=== PATIENT | male | born 1950 | race Caucasian/White ===

== ENCOUNTER 2021-05-16 01:29 | Day surgery (SDC) | payer MEDICARE, OTHER, SELFPAY ==
[2021-05-05 10:01] VITALS: BMI 35.9
--- NOTE | 2021-05-16 08:16 | WPDANESEPPF ---
Anes - Initial Pre Proc Eval Procedure: Operation Date: 05/16/21 11:00 Proposed Procedures p Colonoscopy - Stveenson Griffith MD Date/Time: 05/16/21 08:16 Surgeon: Stevenson Griffith MD Pre Op Diagnosis: ulcerative colitis K51.90 Patient Data Age: 70 Gender: M Height: 1.78 m Weight: 113.5 kg Allergies Allergy/AdvReac Type Severity Reaction Status Date / Time terazosin Allergy Severe Other Verified 05/16/21 10:44 prednisone AdvReac Severe Diarrhea Verified 05/16/21 10:44 Home Medications Medication Instructions Recorded Confirmed Type PreserVision AREDS-2 1 tab-cap PO DAILY 05/05/21 05/16/21 History cholecalciferol (vitamin D3) 125 mcg PO DAILY 05/05/21 05/16/21 History [Vitamin D3] clobetasol 1 applic TOPICAL DAILY PRN 05/05/21 05/16/21 History cyanocobalamin (vitamin B-12) 5,000 mcg PO 2XW 05/05/21 05/16/21 History [Vitamin B-12] ferrous sulfate [Slow Fe] 142 mg PO DAILY 05/05/21 05/16/21 History folic acid 1 mg PO DAILY 05/05/21 05/16/21 History losartan-hydrochlorothiazide 1 tablet PO DAILY 05/05/21 05/16/21 History rivaroxaban [Xarelto] 20 mg PO DAILY 05/05/21 05/16/21 History sulfasalazine 500 mg PO QID 05/05/21 05/16/21 History Patient hx anesthesia problems: none Family hx anesthesia problems: none PMFSH Past Medical History Medical History (Updated 05/16/21 @ 08:17 by Andrzej oH DO) Asbestosis Atrial fibrillation Hypertension Morbid obesity WILLIAM (obstructive sleep apnea) SOB (shortness of breath) Ulcerative colitis Surgical History Surgical History (Updated 05/16/21 @ 08:17 by Andrzej Ho DO) History of nephrectomy left - 7 Family History Family History Mother Macular degeneration Morbid obesity Sibling Cerebrovascular accident Morbid obesity Social History Social History Smoking packs per day: 1 Smoking cigarettes per day: 20.0 Years smoked: 35 Smoking pack-years: 35.00 Smoking status: Former smoker Tobacco type: cigarettes Smoking end date: 09/17/99 Alcohol intake: never Substance use: never Substance use type: does not use Living arrangements: with family Spiritual care concerns: No Anes - Eval Final PreProcedure Day of Procedure 05/16/21 08:16 Patient weight: obese Heart: regular rate and rhythm Lungs: clear to auscultation and normal air movement Airway: Mallampati scale class II Neurological: alert and oriented Last oral intake: >/= 8 hours ASA classification: III Emergent: no Anesthetic plan: proceed Anesthesia type and monitoring: general GIVS and standard monitoring Informed Consent: The patient's anesthetic plan and its attendant risks and benefits were discussed with the patient/family/POA. Questions were solicited and answers provided to the satisfaction of the patient/family/POA.
[2021-05-16 10:46] VITALS: BP 166/83; PULSE 69; RESP 20; TEMP 36.2; O2SAT 99; BMI 36.8
[2021-05-16] MEDS: LACTATED RINGERS 1,000 ML 150 ML IV CONT (10:57)
--- NOTE | 2021-05-16 11:24 | PM.HPGS ---
History of Present Illness History of Present Illness Consent: Risks, benefits, and alternatives have been discussed and questions answered. Patient agrees to proceed with procedure. Chief complaint: ulcerative colitis K51.90 Narrative: Alonzo Montana is a 70 year old male with UC diagnosed about 5-6 years ago, had last colonoscopy around that time with Dr Overton and using sulfasalazine qid, never on biologics and has not required hospitalization. About 4 weeks ago with rash, given medrol which did not help and actually caused more diarrhea. He also has blood in stools. Review of Systems Constitutional: Constitutional: Denies headache(s) and Denies weakness Eyes: Eyes: Denies blurry vision ENT: Reports Normal hearing present, Denies headache(s) and Denies neck pain Cardiovascular: Cardiovascular: Denies chest pain and Denies dyspnea Respiratory: Respiratory: Denies dyspnea Gastrointestinal: Gastrointestinal: Reports no additional gastrointestinal complaints Genitourinary: Genitourinary: Denies dysuria Musculoskeletal: Musculoskeletal: Denies neck pain Integumentary/Breasts: Skin/Breast: Denies dry skin Neurologic: Reports Normal hearing present, Denies headache(s) and Denies weakness Psychiatric: Psychiatric: Denies anxiety Endocrine: Endocrine: Denies change in body appearance Hematologic/Lymphatic: Hematologic/Lymphatic: Denies easy bleeding Allergic/Immunologic: Allergic/Immunologic: Denies urticaria PMFSH Past Medical History Medical History (Updated 05/16/21 @ 11:26 by Stevenson Griffith MD) Asbestosis Atrial fibrillation Blood in stool Hypertension Morbid obesity WILLIAM (obstructive sleep apnea) SOB (shortness of breath) Ulcerative colitis Surgical History Surgical History (Updated 05/16/21 @ 08:17 by Andrzej Ho DO) History of nephrectomy left - 7 Family History Family History Mother Macular degeneration Morbid obesity Sibling Cerebrovascular accident Morbid obesity Social History Social History Smoking packs per day: 1 Smoking cigarettes per day: 20.0 Years smoked: 35 Smoking pack-years: 35.00 Smoking status: Former smoker Tobacco type: cigarettes Smoking end date: 09/17/99 Alcohol intake: never Substance use: never Substance use type: does not use Living arrangements: with family Spiritual care concerns: No Meds Home Medications and Allergies Home Medications Medication Instructions Recorded Confirmed Type PreserVision AREDS-2 1 tab-cap PO DAILY 05/05/21 05/16/21 History cholecalciferol (vitamin D3) 125 mcg PO DAILY 05/05/21 05/16/21 History [Vitamin D3] clobetasol 1 applic TOPICAL DAILY PRN 05/05/21 05/16/21 History cyanocobalamin (vitamin B-12) 5,000 mcg PO 2XW 05/05/21 05/16/21 History [Vitamin B-12] ferrous sulfate [Slow Fe] 142 mg PO DAILY 05/05/21 05/16/21 History folic acid 1 mg PO DAILY 05/05/21 05/16/21 History losartan-hydrochlorothiazide 1 tablet PO DAILY 05/05/21 05/16/21 History rivaroxaban [Xarelto] 20 mg PO DAILY 05/05/21 05/16/21 History sulfasalazine 500 mg PO QID 05/05/21 05/16/21 History Allergies Allergy/AdvReac Type Severity Reaction Status Date / Time terazosin Allergy Severe Other Verified 05/16/21 10:44 prednisone AdvReac Severe Diarrhea Verified 05/16/21 10:44 Vital Signs Vital Signs - 24 hr 05/16/21 10:46 Temperature 97.2 F L Pulse Rate 69 Respiratory Rate 20 Blood Pressure 166/83 H Pulse Oximetry 99 Exam Const: General: comfortable and no acute distress HENMT: General nose exam: Normal nares present Eyes: General: appearance normal, both eyes and all related structures Neck: Neck: no JVD Resp: Auscultation: clear to auscultation bilaterally Cardio: Rate: regular rate Rhythm: regular rhythm GI: Inspection: non-distended GI Palp: Yes Soft to palpation
[2021-05-16 11:50] VITALS: BP 126/51; PULSE 71; RESP 20; O2SAT 99
[2021-05-16 12:00] VITALS: BP 137/61; PULSE 68; RESP 20; O2SAT 99
[2021-05-16 12:10] VITALS: BP 162/82; PULSE 70; RESP 20; O2SAT 99
== END 2021-05-16 12:47 | disposition home or self-care (01) ==
PROVIDERS: PCP Internal Medicine; Visit Provider Internal Medicine Gastroenterology
PROC: 0DJD8ZZ Inspection of Lower Intestinal Tract, Via Natural or Artificial Opening Endoscopic (ICD-10-PCS; CPT 45378; principal; 2021-05-16 11:00)
DX: K92.1 Melena (principal); K64.8 Other hemorrhoids; K63.5 Polyp of colon; K51.914 Ulcerative colitis, unspecified with abscess; I48.91 Unspecified atrial fibrillation; I10 Essential (primary) hypertension; G47.33 Obstructive sleep apnea (adult) (pediatric); Z87.891 Personal history of nicotine dependence; Z79.01 Long term (current) use of anticoagulants; E66.9 Obesity, unspecified; Z68.36 Body mass index [BMI] 36.0-36.9, adult
CPT/HCPCS: 45385; 45380; 88305; J2704; J7120

== ENCOUNTER 2021-05-18 07:31 | Outpatient (CLI) | payer MEDICARE, OTHER, SELFPAY ==
[2021-05-18 08:17] LABS: Hematocrit 30.6 % (42.0-52.0); Hemoglobin 10.1 g/dL (14.0-18.0); Mean Corpuscular Hemoglobin 32.6 pg (26-34); Mean Corpuscular Volume 98.7 fl (80-100); Mean Platelet Volume 8.7 fl (7.4-10.4); Platelet Count Result 251 k/mm3 (150-375); Red Cell Distribution Width 14.2 % (11.5-14.5); White Blood Count 8.3 K/mm3 (4.5-10.0)
[2021-05-18 08:28] LABS: Alanine Aminotransferase 14 U/L (4-50); Alkaline Phosphatase 57 U/L (38-126); Anion Gap 4 mmol/L (8-16); Aspartate Amino Transferase 19 U/L (17-59); Bilirubin,Total 0.5 mg/dL (0.2-1.3); Blood Urea Nitrogen 10 mg/dL (9-20); CRP 0.7 mg/dL (<1.0); Calcium 9.2 mg/dL (8.4-10.2); Carbon Dioxide 28 mmol/L (22-30); Chloride 105 mmol/L (98-107); Estimated Glomerular Filt Rate 54; Glucose 102 mg/dL (65-110); Potassium 3.7 mmol/L (3.4-5.0); Sodium 137 mmol/L (137-145)
[2021-05-18 09:05] LABS: HIV 1/2 Ab P24 Ag Result Negative (Negative)
[2021-05-18 11:11] LABS: Erythrocyte Sedimentation Rate 72 mm/hr (0-20)
[2021-05-22 14:23] LABS: NIL 0.08 IU/mL; Quantiferon TB Plus, 1T NEGATIVE (NEGATIVE); TB1-NIL 0.02 IU/mL; TB2-NIL 0.03 IU/mL
[2021-05-26 09:52] LABS: TPMT Activity 16
== END 2021-05-18 07:32 | disposition home or self-care (01) ==
LOC: ANHLAB 07:41
PROVIDERS: PCP Internal Medicine; Visit Provider Internal Medicine Gastroenterology
DX: K92.1 Melena (principal); K51.90 Ulcerative colitis, unspecified, without complications; Z11.4 Encounter for screening for human immunodeficiency virus [HIV]
CPT/HCPCS: 36415; 80053; 82657; 85027; 85652; 86140; 86480; 86703; G0432

== ENCOUNTER 2021-06-03 10:38 | Outpatient (CLI) | payer MEDICARE, OTHER, SELFPAY ==
[2021-06-08 03:37] LABS: Hepatitis Be Antibody Nonreactive
== END 2021-06-03 10:39 | disposition home or self-care (01) ==
LOC: ANHLAB 10:40
PROVIDERS: PCP Internal Medicine; Visit Provider Internal Medicine Gastroenterology
DX: Z11.59 Encounter for screening for other viral diseases (principal); K92.1 Melena; K51.90 Ulcerative colitis, unspecified, without complications; D50.9 Iron deficiency anemia, unspecified
CPT/HCPCS: 36415; 86707

== ENCOUNTER 2021-06-08 08:31 | Outpatient (CLI) | payer MEDICARE, OTHER, SELFPAY ==
[2021-06-08 10:15] LABS: Hepatitis B Surface Antigen Negative (Negative)
[2021-06-08 10:33] LABS: Hepatitis B Surface Anti Res Negative
== END 2021-06-08 08:32 | disposition home or self-care (01) ==
PROVIDERS: PCP Internal Medicine; Visit Provider Internal Medicine Gastroenterology
DX: Z11.59 Encounter for screening for other viral diseases (principal)
CPT/HCPCS: 36415; 86706; 87340

== ENCOUNTER 2021-08-04 08:42 | Outpatient (CLI) | payer MEDICARE, OTHER, SELFPAY ==
[2021-08-04 09:07] LABS: Hematocrit 32.3 % (42.0-52.0); Hemoglobin 10.7 g/dL (14.0-18.0); Mean Corpuscular HGB Conc 33.1 g/dl (32-36); Mean Corpuscular Volume 96.7 fl (80-100); Mean Platelet Volume 8.8 fl (7.4-10.4); Platelet Count Result 229 k/mm3 (150-375); Red Blood Count 3.34 M/mm3 (4.6-6.20); Red Cell Distribution Width 13.1 % (11.5-14.5); White Blood Count 6.1 K/mm3 (4.5-10.0)
[2021-08-04 09:22] LABS: Alanine Aminotransferase 14 U/L (4-50); Albumin Level 4.5 g/dL (3.5-5.1); Alkaline Phosphatase 64 U/L (38-126); Anion Gap 9 mmol/L (8-16); Aspartate Amino Transferase 20 U/L (17-59); Bilirubin,Total 0.4 mg/dL (0.2-1.3); Blood Urea Nitrogen 16 mg/dL (9-20); CRP < 0.5 mg/dL (<1.0); Carbon Dioxide 26 mmol/L (22-30); Chloride 102 mmol/L (98-107); Estimated Glomerular Filt Rate 60; Glucose 114 mg/dL (65-110); Potassium 3.9 mmol/L (3.4-5.0); Sodium 137 mmol/L (137-145)
[2021-08-04 14:09] LABS: Erythrocyte Sedimentation Rate 42 mm/hr (0-20)
== END 2021-08-04 08:43 | disposition home or self-care (01) ==
PROVIDERS: PCP Internal Medicine; Visit Provider Internal Medicine Gastroenterology
DX: K51.90 Ulcerative colitis, unspecified, without complications (principal); D50.9 Iron deficiency anemia, unspecified
CPT/HCPCS: 36415; 80053; 85027; 85652; 86140

== ENCOUNTER 2021-11-24 10:26 | Outpatient (CLI) | payer OTHER, SELFPAY ==
[2021-11-24 10:55] LABS: Hematocrit 39.3 % (42.0-52.0); Hemoglobin 13.1 g/dL (14.0-18.0); Mean Corpuscular HGB Conc 33.3 g/dl (32-36); Mean Corpuscular Hemoglobin 31.6 pg (26-34); Mean Corpuscular Volume 94.7 fl (80-100); Mean Platelet Volume 9.3 fl (7.4-10.4); Platelet Count Result 225 k/mm3 (150-375); Red Blood Count 4.15 M/mm3 (4.6-6.20); Red Cell Distribution Width 14.4 % (11.5-14.5); White Blood Count 7.5 K/mm3 (4.5-10.0)
[2021-11-24 11:03] LABS: Alanine Aminotransferase 14 U/L (4-50); Albumin Level 4.5 g/dL (3.5-5.1); Alkaline Phosphatase 60 U/L (38-126); Anion Gap 9 mmol/L (8-16); Aspartate Amino Transferase 21 U/L (17-59); Bilirubin,Total 0.7 mg/dL (0.2-1.3); Blood Urea Nitrogen 21 mg/dL (9-20); CRP < 0.5 mg/dL (<1.0); Calcium 10.5 mg/dL (8.4-10.2); Carbon Dioxide 29 mmol/L (22-30); Chloride 100 mmol/L (98-107); Estimated Glomerular Filt Rate 54; Glucose 112 mg/dL (65-110); Potassium 4.4 mmol/L (3.4-5.0); Sodium 138 mmol/L (137-145)
[2021-11-24 12:20] LABS: Erythrocyte Sedimentation Rate 35 mm/hr (0-20)
== END 2021-11-24 10:27 | disposition home or self-care (01) ==
LOC: ANHLAB 10:31
PROVIDERS: PCP Internal Medicine; Visit Provider Internal Medicine Gastroenterology
DX: K51.90 Ulcerative colitis, unspecified, without complications (principal); K92.1 Melena; K52.9 Noninfective gastroenteritis and colitis, unspecified
CPT/HCPCS: 36415; 80053; 85027; 85652; 86140

== ENCOUNTER 2022-01-12 16:34 | Outpatient (CLI) | payer OTHER, SELFPAY ==
[2022-01-12 16:51] LABS: Hematocrit 39.1 % (42.0-52.0); Hemoglobin 12.9 g/dL (14.0-18.0); Mean Corpuscular Hemoglobin 32.6 pg (26-34); Mean Corpuscular Volume 98.7 fl (80-100); Mean Platelet Volume 9.2 fl (7.4-10.4); Platelet Count Result 228 k/mm3 (150-375); Red Blood Count 3.96 M/mm3 (4.6-6.20); Red Cell Distribution Width 14.1 % (11.5-14.5); White Blood Count 8.7 K/mm3 (4.5-10.0)
[2022-01-12 17:04] LABS: Alanine Aminotransferase 16 U/L (4-50); Albumin Level 4.5 g/dL (3.5-5.1); Alkaline Phosphatase 70 U/L (38-126); Anion Gap 7 mmol/L (8-16); Aspartate Amino Transferase 20 U/L (17-59); Bilirubin,Total 0.6 mg/dL (0.2-1.3); Blood Urea Nitrogen 23 mg/dL (9-20); CRP < 0.5 mg/dL (<1.0); Calcium 9.2 mg/dL (8.4-10.2); Carbon Dioxide 26 mmol/L (22-30); Chloride 105 mmol/L (98-107); Estimated Glomerular Filt Rate 54; Glucose 123 mg/dL (65-110); Potassium 4.3 mmol/L (3.4-5.0); Sodium 138 mmol/L (137-145)
[2022-01-12 17:42] LABS: Erythrocyte Sedimentation Rate 8 mm/hr (0-20)
== END 2022-01-12 16:35 | disposition home or self-care (01) ==
PROVIDERS: PCP Internal Medicine; Visit Provider Internal Medicine Gastroenterology
DX: K51.90 Ulcerative colitis, unspecified, without complications (principal); D50.9 Iron deficiency anemia, unspecified
CPT/HCPCS: 36415; 80053; 85027; 85652; 86140

== ENCOUNTER 2022-04-12 08:11 | Outpatient (CLI) | payer OTHER, SELFPAY ==
[2022-04-12 09:09] LABS: Hematocrit 36.8 % (42.0-52.0); Hemoglobin 12.1 g/dL (14.0-18.0); Mean Corpuscular HGB Conc 32.9 g/dl (32-36); Mean Corpuscular Volume 97.4 fl (80-100); Mean Platelet Volume 9.2 fl (7.4-10.4); Platelet Count Result 218 k/mm3 (150-375); Red Blood Count 3.78 M/mm3 (4.6-6.20); Red Cell Distribution Width 13.5 % (11.5-14.5); White Blood Count 6.4 K/mm3 (4.5-10.0)
[2022-04-12 09:29] LABS: Alanine Aminotransferase 13 U/L (6-50); Albumin Level 4.3 g/dL (3.5-5.1); Alkaline Phosphatase 63 U/L (38-126); Anion Gap 10 mmol/L (8-16); Aspartate Amino Transferase 17 U/L (17-59); Bilirubin,Total 0.6 mg/dL (0.2-1.3); Blood Urea Nitrogen 21 mg/dL (9-20); CRP < 0.5 mg/dL (<1.0); Calcium 9.6 mg/dL (8.4-10.2); Carbon Dioxide 28 mmol/L (22-30); Chloride 101 mmol/L (98-107); Estimated Glomerular Filt Rate 50; Glucose 97 mg/dL (65-110); Sodium 139 mmol/L (137-145)
[2022-04-12 10:30] LABS: Erythrocyte Sedimentation Rate 23 mm/hr (0-20)
== END 2022-04-12 08:12 | disposition home or self-care (01) ==
LOC: ANHLAB 08:12
PROVIDERS: PCP Internal Medicine; Visit Provider Internal Medicine Gastroenterology
DX: K51.90 Ulcerative colitis, unspecified, without complications (principal)
CPT/HCPCS: 36415; 80053; 85027; 85652; 86140

== ENCOUNTER 2022-04-14 07:49 | Outpatient (CLI) | payer OTHER, SELFPAY ==
[2022-04-14 08:05] LABS: Basophils Absolute Auto 0.1 K/mm3 (0.0-0.1); Basophils Percent Auto 0.9 % (0.2-1.2); Eosinophils Absolute Auto 0.2 K/mm3 (0-0.3); Eosinophils Percent Auto 2.6 % (0-4.4); Hematocrit 37.8 % (42.0-52.0); Hemoglobin 12.4 g/dL (14.0-18.0); Immature Granulocyte Absolute 0.03 K/mm3 (0.00-0.031); Immature Granulocyte Percent A 0.4 % (0-0.5); Lymphocytes Absolute Auto 1.85 K/mm3 (0.9-3.2); Mean Corpuscular HGB Conc 32.8 g/dl (32-36); Mean Corpuscular Hemoglobin 31.8 pg (26-34); Mean Corpuscular Volume 96.9 fl (80-100); Mean Platelet Volume 8.8 fl (7.4-10.4); Monocytes Absolute Auto 0.6 K/mm3 (0.1-0.6); Monocytes Percent Auto 8.7 % (2.6-8.5); Neutrophils Absolute Auto 4.1 K/mm3 (1.3-6.7); Neutrophils Percent Auto 60.4 % (45.5-73.1); Platelet Count Result 211 k/mm3 (150-375); Red Cell Distribution Width 13.7 % (11.5-14.5); White Blood Count 6.9 K/mm3 (4.5-10.0)
[2022-04-14 08:26] LABS: Alanine Aminotransferase 14 U/L (6-50); Albumin Level 4.5 g/dL (3.5-5.1); Alkaline Phosphatase 64 U/L (38-126); Anion Gap 11 mmol/L (8-16); Aspartate Amino Transferase 18 U/L (17-59); Bilirubin,Total 0.5 mg/dL (0.2-1.3); Blood Urea Nitrogen 20 mg/dL (9-20); Calcium 9.2 mg/dL (8.4-10.2); Carbon Dioxide 26 mmol/L (22-30); Chloride 100 mmol/L (98-107); Cholesterol 170 mg/dL (0-200); Estimated Glomerular Filt Rate 50; Glucose 99 mg/dL (65-110); HDL Direct 35 mg/dL; Potassium 4.1 mmol/L (3.4-5.0); Sodium 137 mmol/L (137-145); Triglycerides 164 mg/dL (<150)
[2022-04-14 08:37] LABS: LDL Cholesterol Direct 85 mg/dL
[2022-04-14 08:54] LABS: Prostate Specific Antigen 1.1 ng/mL (< OR = 4.0)
== END 2022-04-14 07:50 | disposition home or self-care (01) ==
PROVIDERS: PCP Internal Medicine; Visit Provider Internal Medicine
DX: Z12.5 Encounter for screening for malignant neoplasm of prostate (principal); I10 Essential (primary) hypertension
CPT/HCPCS: 36415; 80053; 80061; 84153; 85025; G0103

== ENCOUNTER 2022-05-17 00:31 | Day surgery (SDC) | payer OTHER, SELFPAY ==
[2022-05-09 13:51] VITALS: BMI 38.7
--- NOTE | 2022-05-17 08:13 | WPDANESEPPF ---
Anes - Initial Pre Proc Eval Procedure: Operation Date: 05/17/22 10:45 Proposed Procedures p Colonoscopy - Stevenson Griffith MD Date/Time: 05/17/22 08:13 Surgeon: Stevenson Griffith MD Pre Op Diagnosis: ulcerative colitis Patient Data Age: 71 Gender: M Height: 1.78 m Weight: 122.5 kg Allergies Allergy/AdvReac Type Severity Reaction Status Date / Time terazosin Allergy Severe Other Verified 05/17/22 09:27 prednisone AdvReac Severe Diarrhea Verified 05/17/22 09:27 contrast media Allergy Severe Hives Uncoded 05/17/22 09:27 Home Medications Medication Instructions Recorded Confirmed Type PreserVision AREDS-2 1 tab-cap PO DAILY 05/05/21 05/09/22 History cholecalciferol (vitamin D3) 125 125 mcg PO DAILY 05/05/21 05/09/22 History mcg (5,000 unit) tablet (Vitamin D3) ferrous sulfate 142 mg (45 mg 142 mg PO DAILY 05/05/21 05/09/22 History iron) tablet,extended release (Slow Fe) losartan 100 1 tablet PO DAILY 05/05/21 05/09/22 History mg-hydrochlorothiazide 12.5 mg tablet rivaroxaban 20 mg tablet (Xarelto) 20 mg PO DAILY 05/05/21 05/09/22 History finasteride 5 mg tablet 5 mg PO DAILY 06/02/21 05/09/22 History azathioprine 50 mg tablet (Imuran) 50 mg PO DAILY #30 tabs 08/04/21 05/09/22 Rx adalimumab 40 mg/0.8 mL See Rx Instructions subcut 11/23/21 05/09/22 Rx subcutaneous syringe kit (Humira) .COMPLEX #2 ea adalimumab 80 mg/0.8 mL See Rx Instructions subcut 11/23/21 05/09/22 Rx subcutaneous pen kit (Humira(CF) .COMPLEX #3 ea Pen Crohn's-Ulc Colitis-Hid Sup Strt) Patient hx anesthesia problems: none Family hx anesthesia problems: none Results Review: All pre-operative results and documents have been reviewed as part of the pre-operative evaluation. [facility] Past Medical History Medical History Asbestosis Atrial fibrillation Blood in stool Hypertension Iron deficiency anemia Morbid obesity WILLIAM (obstructive sleep apnea) Rash SOB (shortness of breath) Ulcerative colitis Surgical History Surgical History History of nephrectomy left - 1957 Family History Family History Mother Macular degeneration Morbid obesity Sibling Cerebrovascular accident Morbid obesity Social History Social History Smoking packs per day: 1 Smoking cigarettes per day: 20.0 Years smoked: 35 Smoking pack-years: 35.00 Smoking status: Former smoker Tobacco type: cigarettes Smoking end date: 12/26/99 Alcohol intake: never Substance use: never Substance use type: does not use Living arrangements: with family Spiritual care concerns: No Anes - Eval Final PreProcedure Day of Procedure 05/17/22 08:13 Patient weight: obese Heart: regular rate and rhythm Lungs: clear to auscultation and normal air movement Airway: Mallampati scale class II Neurological: alert and oriented Last oral intake: >/= 8 hours ASA classification: III Emergent: no Anesthetic plan: proceed Anesthesia type and monitoring: general GIVS and standard monitoring Results Review: All pre-operative results and documents have been reviewed as part of the pre-operative evaluation. Informed Consent: The patient's anesthetic plan and its attendant risks and benefits were discussed with the patient/family/POA. Questions were solicited and answers provided to the satisfaction of the patient/family/POA.
[2022-05-17 09:15] VITALS: BMI 38.7
[2022-05-17] MEDS: LACTATED RINGERS 1,000 ML 150 ML IV CONT (09:44)
--- NOTE | 2022-05-17 10:09 | WPDHPUPDATE1 ---
History and Physical Update Update Date/Time: 05/17/22 10:09 History and Physical has been reviewed, including an updated exam of the patient. There are NO changes in the patient's condition. Risks, benefits, and alternatives have been discussed and questions answered. Patient agrees to proceed with procedure.
[2022-05-17 10:24] VITALS: BP 146/66; PULSE 59; RESP 23; O2SAT 97
[2022-05-17 10:34] VITALS: BP 153/75; PULSE 56; RESP 26; O2SAT 95
[2022-05-17 10:44] VITALS: BP 154/85; PULSE 60; RESP 21; O2SAT 95
== END 2022-05-17 11:09 | disposition home or self-care (01) ==
PROVIDERS: PCP Internal Medicine; Visit Provider Internal Medicine Gastroenterology
PROC: 0DJD8ZZ Inspection of Lower Intestinal Tract, Via Natural or Artificial Opening Endoscopic (ICD-10-PCS; CPT 45378; principal; 2022-05-17 10:45)
DX: K51.90 Ulcerative colitis, unspecified, without complications (principal); K57.30 Diverticulosis of large intestine without perforation or abscess without bleeding; K64.8 Other hemorrhoids; R19.7 Diarrhea, unspecified; R10.9 Unspecified abdominal pain; I48.91 Unspecified atrial fibrillation; D50.0 Iron deficiency anemia secondary to blood loss (chronic); G47.33 Obstructive sleep apnea (adult) (pediatric); R06.02 Shortness of breath; F17.210 Nicotine dependence, cigarettes, uncomplicated; Z79.01 Long term (current) use of anticoagulants; R21 Rash and other nonspecific skin eruption; E66.9 Obesity, unspecified; Z68.38 Body mass index [BMI] 38.0-38.9, adult
CPT/HCPCS: 45380; 45385; 88305; J2704; J7120

== ENCOUNTER 2022-10-18 08:03 | Outpatient (CLI) | payer OTHER, SELFPAY ==
[2022-10-18 12:10] LABS: Hematocrit 36.9 % (42.0-52.0); Hemoglobin 12.3 g/dL (14.0-18.0); Mean Corpuscular HGB Conc 33.3 g/dl (32-36); Mean Corpuscular Hemoglobin 32.6 pg (26-34); Mean Corpuscular Volume 97.9 fl (80-100); Mean Platelet Volume 9.8 fl (7.4-10.4); Platelet Count Result 219 k/mm3 (150-375); Red Blood Count 3.77 M/mm3 (4.6-6.20); Red Cell Distribution Width 13.6 % (11.5-14.5); White Blood Count 6.2 K/mm3 (4.5-10.0)
[2022-10-18 12:54] LABS: Erythrocyte Sedimentation Rate 31 mm/hr (0-20)
[2022-10-18 13:04] LABS: Alanine Aminotransferase 17 U/L (6-50); Albumin Level 4.2 g/dL (3.5-5.1); Alkaline Phosphatase 72 U/L (38-126); Anion Gap 4 mmol/L (8-16); Aspartate Amino Transferase 19 U/L (17-59); Bilirubin,Total 0.7 mg/dL (0.2-1.3); Blood Urea Nitrogen 17 mg/dL (9-20); CRP 0.9 mg/dL (<1.0); Calcium 9.1 mg/dL (8.4-10.2); Carbon Dioxide 29 mmol/L (22-30); Chloride 101 mmol/L (98-107); Cholesterol 156 mg/dL (0-200); Estimated Glomerular Filt Rate 50; Glucose 97 mg/dL (65-110); HDL Direct 31 mg/dL; Potassium 3.9 mmol/L (3.4-5.0); Sodium 134 mmol/L (137-145); Triglycerides 150 mg/dL (<150)
[2022-10-18 13:13] LABS: LDL Cholesterol Direct 84 mg/dL
[2022-10-18 14:15] LABS: Prostate Specific Antigen 2.1 ng/mL (< OR = 4.0)
== END 2022-10-18 08:04 | disposition home or self-care (01) ==
PROVIDERS: PCP Internal Medicine; Visit Provider Internal Medicine Gastroenterology
DX: R35.0 Frequency of micturition (principal); I10 Essential (primary) hypertension; Z12.5 Encounter for screening for malignant neoplasm of prostate
CPT/HCPCS: 36415; 80053; 80061; 84153; 85027; 85652; 86140; G0103

== ENCOUNTER 2023-04-30 08:57 | Outpatient (CLI) | payer OTHER, SELFPAY ==
[2023-04-30 09:55] LABS: Hematocrit 37.7 % (42.0-52.0); Hemoglobin 12.4 g/dL (14.0-18.0); Mean Corpuscular HGB Conc 32.9 g/dl (32-36); Mean Corpuscular Hemoglobin 31.9 pg (26-34); Mean Corpuscular Volume 96.9 fl (80-100); Platelet Count Result 216 k/mm3 (150-375); Red Blood Count 3.89 M/mm3 (4.6-6.20); Red Cell Distribution Width 13.3 % (11.5-14.5); White Blood Count 6.9 K/mm3 (4.5-10.0)
[2023-04-30 10:07] LABS: Alanine Aminotransferase 16 U/L (6-50); Albumin Level 4.4 g/dL (3.5-5.1); Alkaline Phosphatase 66 U/L (38-126); Anion Gap 8 mmol/L (8-16); Aspartate Amino Transferase 18 U/L (17-59); Bilirubin,Total 0.7 mg/dL (0.2-1.3); Blood Urea Nitrogen 20 mg/dL (9-20); CRP 0.9 mg/dL (<1.0); Calcium 9.5 mg/dL (8.4-10.2); Carbon Dioxide 28 mmol/L (22-30); Chloride 101 mmol/L (98-107); Estimated Glomerular Filt Rate 54; Glucose 95 mg/dL (65-110); Sodium 137 mmol/L (137-145)
[2023-04-30 10:32] LABS: Erythrocyte Sedimentation Rate 34 mm/hr (0-20)
[2023-04-30 10:49] LABS: Iron 95 ug/dL (49-181)
[2023-04-30 11:01] LABS: Percent Iron Saturation 30 % (20-50)
== END 2023-04-30 08:58 | disposition home or self-care (01) ==
PROVIDERS: Nurse Practitioner Family; PCP Internal Medicine; Visit Provider Internal Medicine Gastroenterology
DX: K51.90 Ulcerative colitis, unspecified, without complications (principal)
CPT/HCPCS: 36415; 80053; 82607; 82728; 82746; 83540; 83550; 85027; 85652; 86140

== ENCOUNTER 2023-05-25 01:54 | Day surgery (SDC) | payer OTHER, SELFPAY ==
[2023-05-14 11:20] VITALS: BMI 38.4
[2023-05-25 06:54] VITALS: BP 160/85; PULSE 60; RESP 18; TEMP 35.8; O2SAT 97
[2023-05-25] MEDS: LACTATED RINGERS 1,000 ML 150 ML IV CONT (07:04)
--- NOTE | 2023-05-25 07:36 | WPDANESEPPF ---
Anes - Initial Pre Proc Eval Procedure: Operation Date: 05/25/23 08:00 Proposed Procedures p Colonoscopy - Stevenson Griffith MD Date/Time: 05/25/23 07:36 Surgeon: Stevenson Griffith MD Pre Op Diagnosis: Ulcerative colitis Patient Data Age: 72 Gender: M Height: 1.75 m Weight: 117.5 kg Last Vital Signs Temp 96.4 F L 05/25/23 06:54 Pulse 60 05/25/23 06:54 Resp 18 05/25/23 06:54 BP 160/85 H 05/25/23 06:54 Pulse Ox 97 05/25/23 06:54 O2 Del Method Room Air 05/25/23 06:54 Allergies Allergy/AdvReac Type Severity Reaction Status Date / Time Iodinated Contrast Media Allergy Severe Hives Verified 05/25/23 06:51 terazosin Allergy Severe Other Verified 05/25/23 06:51 prednisone AdvReac Severe Diarrhea Verified 05/25/23 06:51 Home Medications Medication Instructions Recorded Confirmed Type PreserVision AREDS-2 1 tab-cap PO DAILY 05/05/21 05/25/23 History cholecalciferol (vitamin D3) 125 125 mcg PO 3XW 05/05/21 05/25/23 History mcg (5,000 unit) tablet (Vitamin D3) ferrous sulfate 142 mg (45 mg 142 mg PO DAILY 05/05/21 05/25/23 History iron) tablet,extended release (Slow Fe) losartan 100 1 tablet PO DAILY 05/05/21 05/25/23 History mg-hydrochlorothiazide 12.5 mg tablet rivaroxaban 20 mg tablet (Xarelto) 20 mg PO EVERY OTHER DAY 05/05/21 05/25/23 History adalimumab 40 mg/0.8 mL 40 mg (0.8 mL) subcut Q14D 3 09/21/22 05/25/23 Rx subcutaneous syringe kit (Humira) months #6 ea Lactobacillus 1 cap PO DAILY 05/15/23 05/25/23 History acidophilus-Bifidobac.animalis 2.5 billion cell capsule (Daily Probiotic) azathioprine 50 mg tablet 50 mg PO DAILY 05/15/23 05/25/23 History mecobalamin (vitamin B12) 5,000 5,000 mcg PO 2XW 05/15/23 05/25/23 History mcg chewable tablet triamcinolone acetonide 0.1 % 1 applic topical DAILY PRN Rash 05/15/23 05/25/23 History topical cream tumeric 100 mg-avery 150 mg-olive 2 cap PO DAILY 05/15/23 05/25/23 History 50 mg-oreg 150 mg-caprylate capsule Patient hx anesthesia problems: none Family hx anesthesia problems: none Results Review: All pre-operative results and documents have been reviewed as part of the pre-operative evaluation. [facility] Past Medical History Medical History Asbestosis Atrial fibrillation Blood in stool Hypertension Iron deficiency anemia Morbid obesity WILLIAM (obstructive sleep apnea) Rash SOB (shortness of breath) Ulcerative colitis Surgical History Surgical History History of nephrectomy left - 7 Family History Family History Mother Macular degeneration Morbid obesity Sibling Cerebrovascular accident Morbid obesity Social History Social History Smoking packs per day: 1 Smoking cigarettes per day: 20.0 Years smoked: 35 Smoking pack-years: 35.00 Smoking status: Former smoker Tobacco type: cigarettes Smoking end date: 12/26/99 Alcohol intake: never Substance use: never Substance use type: does not use Living arrangements: with family Spiritual care concerns: No Anes - Eval Final PreProcedure Day of Procedure 05/25/23 07:36 Patient weight: obese Heart: irregular rhythm Lungs: clear to auscultation Airway: Mallampati scale class III Neurological: alert and oriented Last oral intake: >/= 8 hours ASA classification: III Emergent: no Anesthetic plan: proceed Anesthesia type and monitoring: general GIVS and standard monitoring Results Review: All pre-operative results and documents have been reviewed as part of the pre-operative evaluation. Informed Consent: The patient's anesthetic plan and its attendant risks and benefits were discussed with the patient/family/POA. Questions were solicited and answers
--- NOTE | 2023-05-25 07:59 | WPDHPUPDATE1 ---
History and Physical Update Update Date/Time: 05/25/23 07:59 History and Physical has been reviewed, including an updated exam of the patient. There are NO changes in the patient's condition. Risks, benefits, and alternatives have been discussed and questions answered. Patient agrees to proceed with procedure.
[2023-05-25 08:20] VITALS: BP 137/77; PULSE 57; RESP 22; O2SAT 93
[2023-05-25 08:30] VITALS: BP 143/84; PULSE 57; RESP 19; O2SAT 93
[2023-05-25 08:40] VITALS: BP 155/89; PULSE 54; RESP 18; O2SAT 94
== END 2023-05-25 08:49 | disposition home or self-care (01) ==
PROVIDERS: PCP Internal Medicine; Visit Provider Internal Medicine Gastroenterology
PROC: 0DJD8ZZ Inspection of Lower Intestinal Tract, Via Natural or Artificial Opening Endoscopic (ICD-10-PCS; CPT 45378; principal; 2023-05-25 08:00)
DX: K51.90 Ulcerative colitis, unspecified, without complications (principal); D12.0 Benign neoplasm of cecum; K57.30 Diverticulosis of large intestine without perforation or abscess without bleeding; K64.8 Other hemorrhoids; I48.91 Unspecified atrial fibrillation; I10 Essential (primary) hypertension; D50.9 Iron deficiency anemia, unspecified; G47.33 Obstructive sleep apnea (adult) (pediatric); E66.9 Obesity, unspecified; Z68.38 Body mass index [BMI] 38.0-38.9, adult; Z90.5 Acquired absence of kidney; Z87.891 Personal history of nicotine dependence; Z79.01 Long term (current) use of anticoagulants; Z79.620 Long term (current) use of immunosuppressive biologic
CPT/HCPCS: 45385; 45380; 88305; J2704; J7120

== ENCOUNTER 2024-12-04 11:51 | Outpatient (CLI) | payer MEDICARE, SELFPAY ==
[2024-12-04 12:16] LABS: Hematocrit 35.8 % (42.0-52.0); Hemoglobin 11.9 g/dL (14.0-18.0); Mean Corpuscular HGB Conc 33.2 g/dl (32-36); Mean Corpuscular Volume 96.2 fl (80-100); Mean Platelet Volume 8.7 fl (7.4-10.4); Platelet Count Result 235 k/mm3 (150-375); Red Blood Count 3.72 M/mm3 (4.6-6.20); White Blood Count 6.1 K/mm3 (4.5-10.0)
--- OUTSIDE RECORDS SUMMARY | 2024-12-04 12:39 | XMS_ITS | Encounter Summary ---
Author Organization [facility] Healthcare Address [address] [place] [address] Care Team Providers Care Scrap Sawyer Name Role Phone Wilner Bolaños MD Primary Care Provider Sangeetha Parra PTA Unavailable Unavailable Felicia Sales ARMATURE AND ROTOR WINDER Unavailable [phone] Reason for Visit * Reason Onset Date Comments Referral Request 12/03/2024 Encounter Details Date Type Department Care Team (Late st Contact Info) Description 12/03/2024 Telephone [facility] Primary Care at [address] [place] [address] Wilner Bolaños MD [address] [place] [address] Referral Request Social History Tobacco Use Types Packs/Day Years Used Date Smoking Tobacco: Former Cigarettes Q uit: 09/17/1999 Smokeless Tobacco: Never Alcohol Use Standard Drinks/Week Comments No 0 (1 standard drink = 0.6 oz pur e alcohol) AUDIT-C Answer Date Recorded Q1: How often do you have a drink containing alcohol? Never 10/29/2023 Q2: How many drinks containi ng alcohol do you have on a typical day when you are drinking? Patient does not drink Q3: How often do you have si x or more drinks on one occasion? 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 Yes Additional Comments: please make outreach to patient via phone or my chart message when referral isplaced. Does message need to be routed? Yes-Action Needed documented in this encounter Plan of Treatment Not on file documented as of this encounter Visit Diagnoses Not on filedocumented in this encounter Care Teams Scrap Sawyer Relationship Specialty Start Date End Date Wilner Bolaños MD PCP - General 12/15/16 Sangeetha Parra, POWERHOUSE OILER Salesperson Meats Physical Therapy 06/03/18 Felicia Sales NP Nurse Practitioner Nurse Practitioner 03/03/19 documented as of this encounter
--- OUTSIDE RECORDS SUMMARY | 2024-12-04 12:39 | XMS_ITS | Encounter Summary ---
Author Organization [facility] Address [address] [place] [address] Care Team Providers Care Fha Underwriter Name Role Phone David Steel MD Primary Care Provider [phone] Encounter Details Date Type Department Care Team (Late st Contact Info) Description 11/13/2000 Outpatient Historical [facility] Primary Care - [address] [place] [address] David Steel MD [address] [address] Social History Tobacco Use Types Packs/Day Years Used Date Smoking Tobacco: Never Assessed Sex and Gender Information Value Date Recorded Sex Assigned at Not on file 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
--- OUTSIDE RECORDS SUMMARY | 2024-12-04 12:39 | XMS_ITS | Encounter Summary ---
Author Organization [facility] Address [address] [place] [address] Care Team Providers Care Electronic Technologist Name Role Phone David Steel MD Primary Care Provider [phone] Encounter Details Date Type Department Care Team (Latest Contact Info) Description 11/19/2000 Inpatient Historical [facility] Lorelei Ruiz William F, MD [address] [facility] [address] [place] [address] Other and unspecified noninfectious gastroenteritis and colitis(558.9) (Primary Dx) Social History Tobacco Use Types Packs/Day Years Used Date Smoking Tobacco: Never Assessed Sex and Gender Information Value Date Recorded Sex Assigned at Not on file 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
--- OUTSIDE RECORDS SUMMARY | 2024-12-04 12:39 | XMS_ITS | Encounter Summary ---
Author Organization [facility] Address [address] [place] [address] Care Team Providers Care Drop Hammer Operator Helper Name Role Phone David Steel MD Primary Care Provider [phone] Encounter Details Date Type Department Care Team (Late st Contact Info) Description 11/25/2003 Outpatient Historical [facility] Richar Greenberg MD [address] [facility] [address] [place] [address] HYPERTRPH NASAL TURBINAT (Primary Dx) Social History Tobacco Use Types Packs/Day Years Used Date Smoking Tobacco: Never Assessed Sex and Gender Information Value Date Recorded Sex Assigned at Not on file Legal Sex Male 3:47 AM NPS Gender Identity Not on file Sexual Orientation Not on file documented as of this encounter Plan of Treatment Not on file documented as of this encounter Visit Diagnoses Diagnosis Hypertrophy of nasal turbinates- Primary documented in this encounter Care Teams Drop Hammer Operator Helper Relationship Specialty Start Date End Date David Steel MD [address] [facility] [address] [id number] PCP - General 11/19/00 documented as of this encounter
--- OUTSIDE RECORDS SUMMARY | 2024-12-04 12:39 | XMS_ITS | Encounter Summary ---
Author Organization [facility] Address 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
--- OUTSIDE RECORDS SUMMARY | 2024-12-04 12:39 | XMS_ITS | Encounter Summary ---
Author Organization [facility] Address [address] [place] [address] Phone Care Team Providers Care Cutter Down Name Role Phone Wilner Bolaños MD Primary Care Provider Sangeetha Parra PTA Unavailable Unavailable Felicia Sales TANK REFINISHER Unavailable [phone] Stacey Christie RN Unavailable [phone] Reba Rosas RN Unavailable [phone] Encounter Details Date Type Department Care Team (Late st Contact Info) Description 11/23/2017 Orders Only [facility] ProviderJian MD [address] [place] [address] Social History Tobacco Use Types Packs/Day Years Used Date Smoking Tobacco: Former Smokeless Tobacco: Never Alcohol Use Standard Drinks/Week Comments No 0 (1 standard drink = 0.6 oz pur e alcohol) Sex and Gender Information Value Date Recorded Sex Assigned at Not on file Legal Sex Male 6:05 PM RAPID TRANSIT OPERATOR Gender Identity Not on file Sexual Orientation Not on file documented as of this encounter Plan of Treatment Not on file documented as of this encounter Procedures Procedure Name Priority Date/Time Associated Diagnosis Comments DISCHARGE LABORATORY CUMULATIVE REPORT 11/23/2017 12:00 AM RAPID TRANSIT OPERATOR documented in this encounter Results * DISCHARGE LABORATORY CUMULATIVE REPORT (11/23/2017 12:00 AM RAPID TRANSIT OPERATOR) Narrative 11/23/2017 12:00 AM RAPID TRANSIT OPERATOR Ordered by an unspecified provider. us Historical Provider LAB BLOOD ORDERABLES Radha l Result documented in this encounter Visit Diagnoses Not on filedocumented in this encounter Care Teams Cutter Down Relationship Specialty Start Date End Date Wilner Bolaños MD PCP - General 12/15/16 Sangeetha Parra, COMBAT SYSTEMS OPERATOR Congressional Representative Physical Therapy 06/03/18 Felicia Sales, TIFFANY Nurse Practitioner Nurse Practitioner 03/03/19 Stacey Christie, SACHIN [address] [place] [address] Avp 03/05/19 04/15/19 Reba Rosas RN [address] [address] Avp 02/26/20 04/19/20 documented as of this encounter
--- OUTSIDE RECORDS SUMMARY | 2024-12-04 12:39 | XMS_ITS | Encounter Summary ---
Author Organization [facility] Address [address] [place] [address] Care Team Providers Care Water Reuse Program Manager Name Role Phone David Steel MD Primary Care Provider [phone] Encounter Details Date Type Department Care Team (Late st Contact Info) Description 01/24/1999 Outpatient Historical [facility] Primary Care - [address] [place] [address] David Steel MD [address] [facility] [address] [place] [id number] Social History Tobacco Use Types Packs/Day Years Used Date Smoking Tobacco: Never Assessed Sex and Gender Information Value Date Recorded Sex Assigned at Not on file 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
--- OUTSIDE RECORDS SUMMARY | 2024-12-04 12:39 | XMS_ITS | Encounter Summary ---
Author Organization [facility] Address [address] [place] [address] Phone Care Team Providers Care Ground Wirer Name Role Phone Wilner Bolaños MD Primary Care Provider Sangeetha Parra PTA Unavailable Unavailable Felicia Sales FOOD SERVICE DRIVER Unavailable [phone] Stacey Christie RN Unavailable [phone] Reba Rosas RN Unavailable Encounter Details Date Type Department Care Team (Late st Contact Info) Description 01/03/2018 Orders Only [facility] ProviderJian MD [address] [place] [id number] Social History Tobacco Use Types Packs/Day Years Used Date Smoking Tobacco: Former Smokeless Tobacco: Never Alcohol Use Standard Drinks/Week Comments No 0 (1 standard drink = 0.6 oz pur e alcohol) Sex and Gender Information Value Date Recorded Sex Assigned at Not on file 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 us Historical Provider LAB BLOOD ORDERABLES Radha l Result documented in this encounter Visit Diagnoses Not on filedocumented in this encounter Care Teams Ground Wirer Relationship Specialty Start Date End Date Wilner Bolaños MD PCP - General 12/15/16 Sangeetha Parra, SALES AND PRODUCTION MANAGER Land Surveying Survey Worker Physical Therapy 06/03/18 Felicia Sales, [place] Nurse Practitioner Nurse Practitioner 03/03/19 Stacey Christie RN [address] [place] [address] Health Information Management Director 03/05/19 04/15/19 Reba Rosas RN [address] [place] [address] Health Information Management Director 02/26/20 04/19/20 documented as of this encounter
--- OUTSIDE RECORDS SUMMARY | 2024-12-04 12:39 | XMS_ITS | Referral Summary ---
Author Organization [facility] Address [address] [place] [id number] Care Team Providers Care Disc Pad Plate Filler Name Role Phone Wilner Bolaños MD Primary Care Provider Sangeetha Parra PTA Unavailable Unavailable Felicia Sales FUEL OIL CLERK Unavailable [phone] Encounters Date Type Department Care Team Description 12/03/[address] [facility] Primary Care at [address] [phone] Wilner Bolaños MD Referral Request 11/13/2024 10:30 AM EXHIBITION SPECIALIST Office Visit [facility] Primary Care at [address] [phone] Wilner Bolaños MD Essential hypertension (Primary Dx); BMI 36.0-36.9,adult; Benign prostatic hyperplasia with urinary retention; CKD stage G3a/A1, GFR 45-59 and albumin creatinine ratio <30 mg/g (HCC); Gastroesophageal reflux disease without esophagitis; H/O unilateral nephrectomy; Arthritis of left knee; Severe obstructive sleep apnea; Ulcerative pancolitis without complication (HCC); Paroxysmal atrial fibrillation (HCC); Severe obesity (HCC); Urine frequency; Mixed hyperlipidemia 11/10/[address] [facility] Primary Care at [address] [phone] Wilner Bolaños MD Skin lesion (Primary Dx) 10/28/2024 9:11 AM EXHIBITION SPECIALIST - 10/28/2024 11:59 PM EXHIBITION SPECIALIST Hospital Encounter [address] [address] CKD stage G3a/A1, GFR 45-59 and albumin creatinine ratio <30 mg/g (HCC); Essential hypertension Discharge Disposition: Discharge to home or self care 10/28/2024 9:15 AM EXHIBITION SPECIALIST Lab [facility] Outpatient Lab at [address] [phone] Essential hypertension (Primary Dx) 10/21/[address] [facility] Primary Care at [address] [phone] Wilner Bolaños MD Referral Request 10/07/[address] [facility] Primary Care at [address] [phone] Wilner Bolaños MD Referral Request 10/01/2024 8:40 AM EXHIBITION SPECIALIST - 10/01/2024 11:59 PM EXHIBITION SPECIALIST Hospital Encounter [address] [address] Retail Cashier Associate's nodule Discharge Disposition: Discharge to home or self care 10/01/2024 8:15 AM EXHIBITION SPECIALIST Lab [facility] Outpatient Lab at [address] [phone] Retail Cashier Associate's nodule (Primary Dx); Essential hypertension 09/30/[address] [facility] Accountable Care Organization [address] [place] [id number] Pushpa Kimball MA 09/26/[address] [facility] Primary Care at [address] [phone] Wilner Bolaños MD Medical Question/Miscellaneous 09/26/[address] [facility] Primary Care at [address] [phone] Wilner Bolaños MD 09/15/[address] [facility] Primary Care at [address] [phone] Wilner Bolaños MD 09/12/[address] [facility] Primary Care at [address] [place] [phone] Sheridan Smith MA 09/12/2024 Orders Only [facility] Primary Care at [address] [phone] Sheridan Smith MA 09/12/2024 Orders Only [facility] Primary Care at [address] [phone] Wilner Bolaños MD 09/09/2024 Orders Only [facility] Primary Care at [address] [phone] Wilner Bolaños MD from Last 3 Months Allergies Active Allergy Reactions Criticality Noted Date Comments Fexofenadine-Pseudoep hedrine Other (See comments) Medium 03/07/2024 Pt states it locks up my bladder and I'm unable to urinate Iodinated Contrast Media Hives Medium 01/13/2022 Tamsulosin Other (See comments) Low 09/12/2024 C/o decreased sex drive Prednisone Diarrhea,Anxiety Low 08/21/2017 Terazosin Palpitations Low 11/23/2017 Tachycardia Medications cholecalcifero l (VITAMIN D-3) 5,000 unit capsule Take 1 capsule (5,000 Units total) by mouth daily Active vitamins A,C,E-zinc-pipe fitter soft copper per 7,160-113-100 krlf-dy-rkks tablet,delayed release (DR/EC) Take by mouth daily Active Lactobac. rhamnosus GG-inulin 10 billion cell -200 mg tablet,chewabl e Take 70 billion CFU by mouth 2 (two) times a day Active cyanocobalamin , vitamin B-12, 1,000 mcg tablet extended release Take 5,000 mcg by mouth once a week Twice a week Active acidophilus-pe ctin, citrus 100 million cell-10 mg capsule Take by mouth daily Active clobetasoL (TEMOVATE) 0.05 % cream Apply topically 2 (two) times a day 60 g 3 12/18/19 21 Active azaTHIOprine (IMURAN) 50 mg tablet 12/02/19 22 Active clindamycin (CLEOCIN T) 1 % external solution Apply to face daily as directed. 02/21/20 22 Active nygvxjh-jshp-q xjqq-huin-adad yl 100 mg-150 mg- 50 mg-150 mg capsule Take 1 capsule by mouth daily 04/26/20 23 Active clotrimazole-b etamethasone (LOTRISONE) cream Apply topically 2 (two) times a day 45 g 1 05/31/20 23 Active fluocinolone in oil (DermOtic) 0.01 % dropsIndicatio ns:Otitis Externa Eczema Administer 5 drops into each ear 2 (two) times a day 20 mL 3 10/29/19 24 Active losartan-hydro CHLOROthiazide (HYZAAR) 100-12.5 mg per tablet Take 1 tablet by mouth daily. 90 tablet 3 07/14/20 24 025 Active benzonatate (TESSALON) 100 mg capsuleIndicat ions:Cough Take 2 capsules (200 mg total) by mouth 3 (three) times a day as needed for cough 60 capsule 1 09/12/20 24 Active finasteride (PROSCAR) 5 mg tablet Take 1 tablet (5 mg total) by mouth daily To help bladder and prostate symptoms 90 tablet 3 09/15/20 24 025 Active triamcinolone (KENALOG) 0.1 % cream Apply topically 2 (two) times a day To rash of arms 453.6 g 3 11/13/19 25 Active amoxicillin 500 mg tablet/capsule Take 4 tablet/capsul e (2,000 mg total) by mouth once for 1 dose prior to dental procedure. Repeat dose as needed/direct ed by dentist. 12 tablet/caps ule 11/21/19 25 Active ferrous sulfate, dried 160 mg (50 mg iron) tablet extended release Take 160 mg by mouth daily 025 Discontinued(Th erapy completed) triamcinolone (KENALOG) 0.1 % cream 11/08/19 22 025 Discontinued(Re order) adalimumab (HUMIRA,CF, PEN SUBQ) Inject under the skin 40mg every two weeks. 025 Discontinued Active Problems Problem Noted Date Diagnosed Date Severe obesity 05/07/2024 Chronic anticoagulation 08/15/2023 Obesity 11/08/2022 CKD stage G3a/A1, GFR 45-59 and albumin creatinine ratio <30 mg/g 04/25/2022 Arthritis of left knee 03/10/2022 Bradycardia 01/13/2022 Right shoulder tendinitis 12/30/2021 H/O unilateral nephrectomy 04/14/2020 Paroxysmal atrial fibrillation 03/04/2019 Assessment & Plan (11/07/2019 12:51 PM EXHIBITION SPECIALIST): No BB due to bradycardia, on chronic Eliquis Assessment & Plan (10/23/2019 8:47 AM EXHIBITION SPECIALIST): NSR today in clinic. Cont with metoprolol and eliquis for anticoagulation pending upcoming visit with mat machine operator. Painful total knee replacement, right 02/27/2019 Benign prostatic hyperplasia with urinary retent ion 11/23/2017 Assessment & Plan (10/23/2019 8:49 AM EXHIBITION SPECIALIST): Asymptomatic with last PSA of 2.99. Will Cnt. To monitor with upcoming PSA labs in 3 months as scheduled Assessment & Plan (11/23/2017 11:59 AM EXHIBITION SPECIALIST): Urology consultation recommended. Patient had been referred to a urologist last year. However, he suffers from claustrophobia and states he waited 20 minutes and could not stand to be in the room any longer. He got up in left in never rescheduled. I discussed the importance of urology consultation and he is now in agreement. I encouraged him to be forthcoming when scheduling appointment with his urologist. If he lets them know he suffers from claustrophobia and can't handle wait time perhaps they can accommodate his schedule or even call him when his room is ready from the parking lot. Essential hypertension 02/26/2017 Assessment & Plan (11/07/2019 12:55 PM EXHIBITION SPECIALIST): Will change hydralazine and clonidine to Losartan. Pt to call me with blood pressure results in 1 week. May consider adding Amlodipine if blood pressure is not well controlled Assessment & Plan (10/23/2019 8:48 AM EXHIBITION SPECIALIST): Normotensive in clinic. Cnt. Prior prescribed antihypertensives, dash/heart healthy diet and F/U mat machine operator scheduled Assessment & Plan (08/18/2019 4:15 PM EXHIBITION SPECIALIST): BP slightly elevated in office today. Cont. With current regimen. Monitor diet. Follow up as instructed. Hypertension, Medical treament revolves around weight control, salt management, and meds when necessary. long as weight loss is necessary and you are able to drop weight we can cont to monitor the blood pressure and not add meds. Once the weight is not changing then it becomes nesessary to add meds to be able to reach the goal bp. Assessment & Plan (03/01/2019 12:05 AM CDT): Blood pressure is intermittently elevated. Home medications have been resumed with hold parameters. Continue monitor. Assessment & Plan (11/23/2017 12:03 PM EXHIBITION SPECIALIST): Blood pressure elevated today. Patient did have about a 10 minutes wait. He suffers from claustrophobia and attributes his in office blood pressure elevation to that. He was encouraged to monitor his blood pressure outside of the office and return with persistent elevation. We discussed the importance of adequate blood pressure control in the long-term side effects of poorly controlled blood pressure. Assessment & Plan (02/26/2017 8:50 AM CDT): History of anxiety/white coat hypertension/claustrophobia. Blood pressure tends to run high in the office. He was encouraged to monitor his blood pressure outside of the office. And follow up here with persistent elevation. He verbalized understanding and was in agreement with the plan of care. Severe obstructive sleep apnea 01/31/2014 Overview (12/20/2016): [facility] SLEEP [facility] Assessment & Plan (11/07/2019 12:56 PM EXHIBITION SPECIALIST): Pt is compliant with CPAP Assessment & Plan (10/23/2019 8:47 AM EXHIBITION SPECIALIST): Stable on current CPAP settings Assessment & Plan (03/01/2019 12:03 AM CDT): Patient has home CPAP, continue q.h.s. Assessment & Plan (02/26/2017 8:51 AM CDT): Patient is compliant with CPAP use. She seen download to be obtained from medical supplier. Patient notes restful sleep with continued use of CPAP. He is tolerating therapy very well. New machine and mask are fitted properly and working well. He wakes up feeling rested. Denies any daytime somnolence/fatigue. Gastroesophageal reflux disease 01/31/2014 Overview (12/21/2016): ESOPHAGEAL REFLUX Assessment & Plan (10/23/2019 8:47 AM EXHIBITION SPECIALIST): Cnt. Pepcid and dietary modifications as prior advised. Ulcerative colitis 01/31/2014 Overview (12/21/2016): ULCERATVE COLITIS UNSPCF Assessment & Plan (03/01/2019 12:03 AM CDT): Continue sulfasalazine Assessment & Plan (08/21/2017 2:56 PM EXHIBITION SPECIALIST): Daily blood with 4 bms/day and much less control when he tried to do without his apriso for a month. Here to see aboout other options including surgery. Explained that he has 30 cm of UC and surgery NOT indicated. Outlined gamut of mesalamine formulation, budesonide, prednisone and biologicals. He copuld not aford uceris in the past and requests cheapest meds, Will go to [facility] 1.5 grams tid with folate and recap response in 4 weks. Resolved Problems Problem Noted Date Diagnosed Date Resolved Date Chronic atrial fibrillation 01/13/2022 08/15/2023 Allergic rhinitis 12/18/2019 12/17/2020 Assessment & Plan (12/18/2019 12:00 PM CDT): Right ear fungal infection - nystatin powder placed - start Lotrimin drops twice daily, let sit for ten minutes each time - this is Over the counter Avoid ear cleaning techniques Avoid water to ears Flonase 2 sprays into each nostril while looking down over the sink, do not sniff in or blow nose after use. Follow up in 7-10 days for recheck Otitis externa, fungal, right ear 12/18/2019 12/17/2020 Assessment & Plan (12/25/2019 9:58 AM CDT): Nasal saline spray (Simply saline, [employer], [place], [place]) 2 second sprays or 2 squeezes into each nostril while looking down over the sink, do not need to sniff in. Continue ear drops twice daily, Avoid ear cleaning techniques Avoid water to ears Follow up in 2 weeks Assessment & Plan (12/18/2019 12:00 PM CDT): Right ear fungal infection - nystatin powder placed - start Lotrimin drops twice daily, let sit for ten minutes each time - this is Over the counter Avoid ear cleaning techniques Avoid water to ears Flonase 2 sprays into each nostril while looking down over the sink, do not sniff in or blow nose after use. Follow up in 7-10 days for recheck Preop exam for internal medicine 10/23/2019 12/17/2020 Assessment & Plan (10/23/2019 8:46 AM EXHIBITION SPECIALIST): Pt was advised to continue current therapy and medications for chronic conditions as previously as advised. Continue with healthy dietary management as well. Pt offered no additional complaints today in office. Preoperative medical clearance: Pt is medically stable and aware there are risk associated with surgery and anesthesia. He states the surgeon has reviewed these risk in detail with patient, and wishes to proceed with surgery. They are medically cleared for surgery at this time. Pt was instructed to contact the office with absolutely any changes prior to and post surgery. We will see them back here as scheduled, or certainly sooner as needed. Age-related cataract of both eyes 10/23/2019 12/17/2020 Assessment & Plan (10/23/2019 8:49 AM EXHIBITION SPECIALIST): Pt wishes to proceed forward with cataract extraction of BL eyes as directed by grey goods marker and desired by Pt. Preoperative clearance provided today in clinic Right upper lobe pneumonia 03/10/2019 0 03/27/2019 Rapid atrial fibrillation 03/04/2019 Atrial flutter 02/28/2019 10/23/2019 Assessment & Plan (03/01/2019 12:07 AM CDT): New diagnosis. Cardiology has been consulted will await their evaluation. Echo has been ordered. Patient was started on therapeutic dosing of Lovenox however given patient's intermittent hemoptysis will hold anticoagulation for now and continue to monitor. Once it is determined that patient is not actively bleeding, will resume. Patient's chads Vasc is at least 2. Pneumonia due to Streptococcus pneumoniae 02/28/2019 08/18/2019 Assessment & Plan (03/01/2019 12:04 AM CDT): Continue with ceftriaxone and azithromycin. Hemoptysis 02/28/2019 04/14/2020 Assessment & Plan (03/01/2019 12:05 AM CDT): Intermittent for the last few weeks. Exact etiology unclear. Hemoglobin appears to be higher than baseline of between 10-12. Continue to monitor. Will hold anticoagulation at this time. May need pulmonology consult during admission. History of arthroplasty of right knee 02/05/2019 12/17/2020 Examination following surgery 02/05/2019 12/17/2020 Aftercare following right kn ee joint replacement surgery 06/24/2018 04/14/2020 Primary osteoarthritis of right knee 05/28/2018 02/05/2019 Overview (05/28/2018): Added automatically from request for surgery [id number] Urinary retention 11/23/2017 03/14/2018 Assessment & Plan (11/23/2017 12:07 PM EXHIBITION SPECIALIST): Postvoid bladder scan revealing 129 mL of urine remaining in the bladder. This is felt secondary to prostatitis and history of BPH. Patient admits he had been off of his BPH medications for several months. He was encouraged to continue routine use. He will resume Avodart as previously directed. New script submitted to pharmacy. Further direction pending urologist expert opinion. Rising PSA level 11/23/2017 01/17/2018 Assessment & Plan (11/23/2017 11:59 AM EXHIBITION SPECIALIST): Urology consultation recommended. Patient had been referred to a urologist last year. However, he suffers from claustrophobia and states he waited 20 minutes and could not stand to be in the room any longer. He got up in left in never rescheduled. I discussed the importance of urology consultation and he is now in agreement. I encouraged him to be forthcoming when scheduling appointment with his urologist. If he lets them know he suffers from claustrophobia and can't handle wait time perhaps they can accommodate his schedule or even call him when his room is ready from the parking lot. Claustrophobia 11/23/2017 12/17/2020 Assessment & Plan (11/23/2017 12:04 PM EXHIBITION SPECIALIST): Patient is followed by Psychiatry. He will continue routine follow-up and medications as previously directed by exhibit specialist. Acute prostatitis 11/23/2017 01/17/2018 Assessment & Plan (11/23/2017 11:58 AM EXHIBITION SPECIALIST): Urine sample will be submitted for urinalysis with reflex to microscopy and culture. Patient has previously had a poor response to Bactrim for prostatitis. Therefore, we are going to begin treatment with Cipro which she has previously tolerated well with a satisfactory response. Skin lesion of back 02/26/2017 04/14/20 20 Assessment & Plan (02/26/2017 8:51 AM CDT): Referral arranged to local cook cashier food prep, Dr. Lucía Trujillo for 2nd opinion per patient request. Nasal obstruction 07/02/2015 04/14/2020 Overview (12/21/2016): Refractory obstruction of nasal airway Biliary sludge 12/22/2013 12/17/2020 Overview (12/21/2016): Gallbladder sludge Immunizations Immunization Administration Dates Next Due Influenza, Quadrivalent, Hig h Dose, Preservative Free, Intrr 06/29/2020 Influenza, Split 09/30/2013, 2,06/28/2011,06/15 Influenza, Trivalent, High D ose, Split, Preservative Free, Intramuscular 06/18/2019,06/06/2018,06/13/2017,06/16,06/04/2015 Influenza, Trivalent, IM (MDV) 09/30/2013,2008 Influenza, Trivalent, Recomb inant, Egg Free, Preservative Free, Antibiotic Free, IM (FLUBLOK) 07/06/2014 Influenza, Unspecified 06/26/2023,2021,06/10/2021,04/29(Deferred: Patient Refused),08/01/2019(Deferred: Patient Refused),05/18/2019 Pfizer SARS-CoV-2 Monovalent Vaccination (12+ Yrs) PURPLE 11/30/2020,11/09/2020 Pneumococcal Conjugate PCV 13 12/20/2012 Pneumococcal Polysaccharide PPV23 01/03/2016, Tdap 11/19/2008 ZOSTER LIVE 12/22/2009 ZOSTER Recombinant 01/09/2019,11/02/2018 Social History Tobacco Use Types Packs/Day Years [...] on file Legal Sex Male 6:05 PM EXHIBITION SPECIALIST Gender Identity Not on file Sexual Orientation Not on file Last Filed Vital Signs Vital Sign Reading Time Taken Comments Blood Pressure 132/62 11/13/2024 9:59 AM EXHIBITION SPECIALIST Pulse 84 11/13/2024 9:59 AM EXHIBITION SPECIALIST Temperature 36.4 C (97.5 F) 11/13/2024 9:59 AM EXHIBITION SPECIALIST Respiratory Rate 16 11/13/2024 9:59 AM EXHIBITION SPECIALIST Oxygen Saturation 98% 11/13/2024 9:59 AM EXHIBITION SPECIALIST Inhaled Oxygen Concentration - - Weight 116.6 kg (257 lb) 11/13/2024 9:59 AM EXHIBITION SPECIALIST Height 177.8 cm (5' 10 ) 11/13/2024 9:59 AM EXHIBITION SPECIALIST Body Mass Index 36.88 11/13/2024 9:59 AM EXHIBITION SPECIALIST Plan of Treatment Not on file Medical Devices Implanted Type Area Custody Assistant Device Identifier Shelf Expiration Date Model / Serial / Lot [employer] [id number] Smartset High Viscosity Cement 40gm Bone Gentamicin - [id number] Implanted:Qty: 1 on 06/12/2018 by Wilner Valenzuela MD at [facility] Right: Knee [employer] 06/16/2019 [id number] / / [id number] [employer] [id number] Smartset High Viscosity Cement 40gm Bone Gentamicin - [id number] Implanted:Qty: 1 on 06/12/2018 by Wilner Valenzuela MD at [facility] Right: Knee [employer] 06/16/2019 [id number] / / [id number] [employer] [id number] Attune Cemented Posterior Stabilize Knee Right 6 Component - [id number] Implanted:Qty: 1 on 06/12/2018 by Wilner Valenzuela MD at [facility] Right: Knee [employer] 12/15/2027 [id number] / / [id number] [employer] [id number] Attune S+ Cement Fix Bearing Knee 7 Baseplate Tibial - [id number] Implanted:Qty: 1 on 06/12/2018 by Wilner Valenzuela MD at [facility] Right: Knee [employer] 10/17/2027 [id number] / / [id number] [employer] [id number] Attune 5mm Posterior Stabilize Fix Bearing Knee 6 Insert Tibial - [id number] Implanted:Qty: 1 on 06/12/2018 by Wilner Valenzuela MD at [facility] Right: Knee [employer] 01/14/2023 [id number] / / [id number] Procedures Procedure Name Priority Date/Time Associated Diagnosis Comments EGFR Routine 10/28/2024 9:11 AM EXHIBITION SPECIALIST CKD stage G3a/A1, GFR 45-59 and albumin creatinine ratio <30 mg/g (HCC) Essential hypertension LIPID PANEL Routine 10/28/2024 9:11 AM EXHIBITION SPECIALIST Essential hypertension COMPREHENSIVE METABOLIC PANEL Routine 10/28/2024 9:11 AM EXHIBITION SPECIALIST CKD stage G3a/A1, GFR 45-59 and albumin creatinine ratio <30 mg/g (HCC) Essential hypertension EGFR Routine 10/01/2024 8:40 AM EXHIBITION SPECIALIST Retail Cashier Associate's nodule DIFFERENTIAL AUTO Routine 10/01/2024 8:4 0 AM EXHIBITION SPECIALIST Retail Cashier Associate's nodule COMPREHENSIVE METABOLIC PANEL Routine 10/01/2024 8:40 AM EXHIBITION SPECIALIST Retail Cashier Associate's nodule CBC WITH AUTO DIFFERENTIAL Routine 10/01/2024 8:40 AM EXHIBITION SPECIALIST Retail Cashier Associate's nodule IRON PROFILE W/ IBC Routine 10/01/2024 8 :40 AM EXHIBITION SPECIALIST Retail Cashier Associate's nodule VITAMIN B12 Routine 10/01/2024 8:40 AM EXHIBITION SPECIALIST Retail Cashier Associate's nodule FOLATE Routine 10/01/2024 8:40 AM EXHIBITION SPECIALIST Retail Cashier Associate's nodule CENTROMERE ANTIBODY, IGG Routine 10/01/2024 8:40 AM EXHIBITION SPECIALIST Retail Cashier Associate's nodule FERRITIN Routine 10/01/2024 8:40 AM EXHIBITION SPECIALIST Retail Cashier Associate's nodule PSA SCREEN Routine 04/28/2024 8:20 AM CDT Urine frequency COLONOSCOPY Routine 05/25/2023 CT ABDOMEN PELVIS WO CONTRAST Schedule FAUSTINO, Read FAUSTINO (Appt Today, Awaiting Results) 05/05/2021 2:53 PM CDT Abdominal pain Diarrhea, unspecified type Hx of ulcerative colitis HEPATITIS C ANTIBODY Routine 12/21/2016 from Last 3 Months or Most Recently Relevant to Health Maintenance Results * (ABNORMAL) eGFR (10/28/2024 9:11 AM EXHIBITION SPECIALIST) eGFR 50(L) >=60 mL/min/1. 73 m2 Comment: Interpretive Data Reference Interval Normal >/= 90 mL/min/1.73m2 Mildly decreased* 60 - 89 mL/min/1.73m2 Mildly to moderately decreased 45 - 59 mL/min/1.73m2 Moderately to severely decreased 30 - 44 mL/min/1.73m2 Severely decreased 15 - 29 mL/min/1.73m2 Kidney Failure < 15 mL/min/1.73m2 *Relative to young adult level Estimated glomerular filtration rate is determined by the 2020 CKD-EPI equation recommended by the National Kidney Foundation (A Unifying Approach to GFR Estimation: Recommendations of the NKF-ASK Task Force on Reassessing the Inclusion of Race in Diagnosing Kidney Disease, JASN 2020). The CKD-EPI equation should not be used for patients with unstable renal function and has not been validated in children and those over 70. Current interpretive data was last reviewed 2021. Blood 10/28/2024 9:11 AM EXHIBITION SPECIALIST 10/28/2024 3:53 PM EXHIBITION SPECIALIST us Wilner Bolaños MD LAB BLOOD ORDERABLES Fi nal Result Performing Organization Address City/State/ZIP [place] Phone Number [facility] [id number] [address] [place] [address] * (ABNORMAL) Lipid panel (10/28/2024 9:11 AM EXHIBITION SPECIALIST) Cholesterol 156 30 - 199 mg/dL Comment: Interpretive Data Ages < or = 19 years Acceptable: <170 mg/dL Borderline high: 170-199 mg/dL High: >or= 200 mg/dL Ages > or = 20 years Desirable: <200 mg/dL Borderline high: 200-239 mg/dL High: >or= 240 mg/dL Literature References: 1. Expert Panel on Integrated Guidelines for Cardiovascular Health and Risk Reduction in Children and Adolescents. Pediatrics 2011;128:S213 2. NCEP Expert Panel. Circulation 2004;110:227 Current Interpretive Data was last revised on 2018. Triglycerides 96 <=149 mg/dL CHARLY Comment: Interpretive Data Ages < or = 9 years Acceptable: <75 mg/dL Borderline high: 75-99 mg/dL High: >or= 100 mg/dL Ages 10 to 20 years Acceptable: <90 mg/dL Borderline high: 90-129 mg/dL High: >or= 130 mg/dL Ages > or = 20 years Desirable: <150 mg/dL Borderline high: 150-199 mg/dL High: 200-499 mg/dL Very high: >or= 499 mg/dL Literature References: 1. Expert Panel on Integrated Guidelines for Cardiovascular Health and Risk Reduction in Children and Adolescents. Pediatrics 2011;128:S213 2. NCEP Expert Panel. Circulation 2004;110:227 Current Interpretive Data was last revised on 2018. HDL 38(L) >=40 mg/dL CHARLY MACIAS Comment: Interpretive Data Ages < or = 19 years Acceptable: >45 mg/dL Borderline low: 40-45 mg/dL Low: <40 mg/dL Ages > or = 20 years Desirable: >or= 60 mg/dL Low: <40 mg/dL Literature References: 1. Expert Panel on Integrated Guidelines for Cardiovascular Health and Risk Reduction in Children and Adolescents. Pediatrics 2011;128:S213 2. NCEP Expert Panel. Circulation 2003;110:227 Current Interpretive Data was last revised on 2018. LDL, calculated 100 <=129 mg/dL CHARLY MACIAS Comment: Interpretive Data Ages < or = 19 years Acceptable: <110 mg/dL Borderline high: 110-129 mg/dL High: >or= 130 mg/dL Ages > or = 20 years Optimal: <100 mg/dL Near optimal: 100-129 mg/dL Borderline high: 130-159 mg/dL High: >160 mg/dL Calculated using the Pasquale LDL-C estimating equation. This equation was implemented on 2024. Prior to this date LDL-C was estimated using the Friedewald equation. Literature References: 1. Expert Panel on Integrated Guidelines for Cardiovascular Health and Risk Reduction in Children and Adolescents. Pediatrics 2011;128:S213 2. NCEP Expert Panel. Circulation 2004;110:227 3. Pasquale Rogers et al. TELLO Cardiol. 2020 January 15;5(5):540-548. doi: 10.1001/jamacardio.2020.0013 Current Interpretive Data was last revised on 2024. Non-HDL Cholesterol 118 mg/dL CERNER CH Comment: Interpretive Data Ages < or = 19 years Acceptable: <120 mg/dL Borderline high: 120-144 mg/dL High: >145 mg/dL Ages > or = 20 years When triglycerides are >200 mg/dL, Non-HDL cholesterol is a secondary target of therapy with treatment goals that are 30 mg/dL greater than the LDL cholesterol target. Literature References: 1. Expert Panel on Integrated Guidelines for Cardiovascular Health and Risk Reduction in Children and Adolescents. Pediatrics 2011;128:S213 2. NCEP Expert Panel. Circulation 2004;110:227 Current Interpretive Data was last revised on 2018. Chol/HDL ratio 4 [facility]ER CH Blood 10/28/2024 9:11 AM EXHIBITION SPECIALIST 10/28/2024 3:28 PM EXHIBITION SPECIALIST Narrative CERNER - 10/28/2024 4:33 PM EXHIBITION SPECIALIST Has the patient been fasting for 8 hours or more?->Yes us Wilner Bolaños MD LAB BLOOD ORDERABLES Fi nal Result [facility] [address] [facility] [place] [address] * (ABNORMAL) Comprehensive metabolic panel (10/28/2024 9:11 AM EXHIBITION SPECIALIST) Sodium 138 135 - 145 mmol/L Potassium, pl 4.5 3.3 - 4.9 mmol/L CERNER Chloride 101 97 - 110 mmol/L [facility] CO2 26 22 - 32 mmol/L [facility]ERNER CH Anion gap 11 2 - 15 mmol/L C[facility] CH BUN 24 6 - 25 mg/dL [facility] Creatinine 1.46(H) 0.80 - 1.30 mg/dL [facility] CH Glucose 100 70 - 199 mg/dL [facility]ERNER CH Comment: Interpretive Data Fasting glucose >/= 126 mg/dl is diagnostic for diabetes. Fasting is defined as no caloric intake for at least 8 hours. Fasting glucose between 100 mg/dl to 125 mg/dl is diagnostic of prediabetes. In a patient with classic symptoms of hyperglycemia or hyperglycemic crisis, a random glucose >/= 200 mg/dl is diagnostic for diabetes. In the absence of unequivocal hyperglycemia, results should be confirmed by repeat testing. The classification and Diagnosis of Diabetes Diabetes Care 2021; 46: S19-S40. Current interpretive data was last revised 2022. Calcium 10.5(H) 8.5 - 10.3 mg/dL [facility] Bilirubin, total 0.5 0.1 - 1.2 mg/dL [facility] Protein, pl 7.2 6.5 - 8.5 g/dL [facility] Albumin 4.2 3.5 - 5.0 g/dL [facility] CH Alk phos 72 40 - 130 Units/L [facility] ALT 10 7 - 55 Units/L [facility] AST 15 10 - 50 Units/L [facility] Blood 10/28/2024 9:11 AM EXHIBITION SPECIALIST 10/28/2024 3:28 PM EXHIBITION SPECIALIST Narrative [facility] - 10/28/2024 4:33 PM EXHIBITION SPECIALIST Has the patient fasted?->Yes us Wilner Bolaños MD LAB BLOOD ORDERABLES nal Result CHARLY MACIAS [address] [place] [address] * (ABNORMAL) eGFR (10/01/2024 8:40 AM EXHIBITION SPECIALIST) eGFR 50(L) >=60 mL/min/1. 73 m2 Comment: Interpretive Data Reference Interval Normal >/= 90 mL/min/1.73m2 Mildly decreased* 60 - 89 mL/min/1.73m2 Mildly to moderately decreased 45 - 59 mL/min/1.73m2 Moderately to severely decreased 30 - 44 mL/min/1.73m2 Severely decreased 15 - 29 mL/min/1.73m2 Kidney Failure < 15 mL/min/1.73m2 *Relative to young adult level Estimated glomerular filtration rate is determined by the 2020 CKD-EPI equation recommended by the National Kidney Foundation (A Unifying Approach to GFR Estimation: Recommendations of the NKF-ASK Task Force on Reassessing the Inclusion of Race in Diagnosing Kidney Disease, JASN 2020). The CKD-EPI equation should not be used for patients with unstable renal function and has not been validated in children and those over 70. Current interpretive data was last reviewed 2021. Blood 10/01/2024 8:40 AM EXHIBITION SPECIALIST 10/01/2024 5:36 PM EXHIBITION SPECIALIST Agnes Amaral MD LAB BLOOD ORDERABLES Radha soriano Result [facility] [address] Department of Laboratories [place], [place] [id number] * Differential, auto (10/01/2024 8:40 AM EXHIBITION SPECIALIST) Neutrophil abs 3.3 1.5 - 6.5 K/cumm Imm gran abs 0.0 0.0 - 0.1 K/cumm [facility] Lymphocyte abs 1.8 0.8 - 3.3 K/cumm [facility] Monocyte abs 0.7 0.2 - 0.8 K/cumm [facility] Eosinophil abs 0.1 0.0 - 0.5 K/cumm [facility] Basophil abs 0.1 0.0 - 0.1 K/cumm [facility] Neutrophil pct 55.4 % [facility] Comment: Interpretive Data Percent cell count reference ranges are not reported, since discordance with absolute values may lead to misinterpretation of CBC data. Current Interpretive Data was last revised on 2017. Imm gran pct 0.3 % [facility] Comment: Interpretive Data Percent cell count reference ranges are not reported, since discordance with absolute values may lead to misinterpretation of CBC data. Current Interpretive Data was last revised on 2017. Lymphocyte pct 30.4 % [facility] Comment: Interpretive Data Percent cell count reference ranges are not reported, since discordance with absolute values may lead to misinterpretation of CBC data. Current Interpretive Data was last revised on 2017. Monocyte pct 11.1 % [facility] Comment: Interpretive Data Percent cell count reference ranges are not reported, since discordance with absolute values may lead to misinterpretation of CBC data. Current Interpretive Data was last revised on 2017. Eosinophil pct 2.0 % [facility] Comment: Interpretive Data Percent cell count reference ranges are not reported, since discordance with absolute values may lead to misinterpretation of CBC data. Current Interpretive Data was last revised on 2017. Basophil pct 0.8 % CHARLY Comment: Interpretive Data Percent cell count reference ranges are not reported, since discordance with absolute values may lead to misinterpretation of CBC data. Current Interpretive Data was last revised on 2017. Blood 10/01/2024 8:40 AM EXHIBITION SPECIALIST 10/01/2024 5:31 PM EXHIBITION SPECIALIST Agnes Amaral MD LAB BLOOD ORDERABLES Radha l Result [facility] [address] [place] [address] * Centromere ab IgG (10/01/2024 8:40 AM EXHIBITION SPECIALIST) Anticentromere <0.2 <=0.9 Ab Index Comment:Testing performed by : [facility], [address] [place] [address], [place]., [address] Blood 10/01/2024 8:40 AM EXHIBITION SPECIALIST 10/02/2024 10:02 AM EXHIBITION SPECIALIST Narrative [facility] - 10/02/2024 12:45 PM EXHIBITION SPECIALIST FAX RESULTS TO [phone] Agnes amaral Agnes Amaral MD LAB BLOOD ORDERABLES Radha l Result [facility] [address] [place] [address] * (ABNORMAL) Iron profile w/ IBC (10/01/2024 8:40 AM EXHIBITION SPECIALIST) Iron 61 50 - 150 mcg/dL Comment:Testing performed by : [facility], [address] [facility], [place], [address] TIBC 245(L) 250 - 400 mcg/dL [facility] Comment:Testing performed by : [facility], [place], [address] Transferrin saturation 25 20 - 50 % [facility] Comment:Testing performed by : [place], [address] Blood 10/01/2024 8:40 AM EXHIBITION SPECIALIST 10/01/2024 5:31 PM EXHIBITION SPECIALIST Narrative [facility] - 10/02/2024 4:59 PM EXHIBITION SPECIALIST FAX RESULTS TO [phone] Agnes amaral us Agnes Amaral MD LAB BLOOD ORDERABLES Radha l Result [facility] [address] [place] [address] * (ABNORMAL) CBC with auto differential (10/01/2024 8:40 AM EXHIBITION SPECIALIST) WBC 6.0 3.8 - 9.9 K/cumm Hgb 11.9(L) 13.0 - 17.5 g/dL [facility] Hct 37.3(L) 38.9 - 50.3 % [facility] Plt 268 150 - 400 K/cumm [facility] MPV 9.3 9.1 - 12.3 fL [facility] RBC 3.77(L) 4.30 - 5.80 M/cumm [facility] MCV 98.9(H) 81.3 - 96.4 fL [facility] MCH 31.6 27.1 - 33.3 pg [facility] MCHC 31.9(L) 32.3 - 35.7 g/dL [facility] RDW CV 13.6 11.1 - 14.9 % [facility] RDW SD 50.0(H) 35.7 - 48.1 fL [facility] NRBC abs 0.00 0.00 - 0.01 K/cumm [facility] Blood 10/01/2024 8:40 AM EXHIBITION SPECIALIST 10/01/2024 5:31 PM EXHIBITION SPECIALIST Narrative [facility] - 10/01/2024 5:45 PM EXHIBITION SPECIALIST FAX RESULTS TO [phone] Agnes amaral Agnes Amaral MD LAB BLOOD ORDERABLES Radha l Result Performing Organization Address City/[facility]/ZIP Co de Phone Number CHARLY MACIAS [address] [facility] [place] [address] * Folate (10/01/2024 8:40 AM EXHIBITION SPECIALIST) Folic acid 10.8 >=5.0 ng/mL Comment:Hemolysis present. R esults may be affected. Blood 10/01/2024 8:40 AM EXHIBITION SPECIALIST 10/01/2024 5:31 PM EXHIBITION SPECIALIST Narrative [facility] - 10/01/2024 6:24 PM EXHIBITION SPECIALIST FAX RESULTS TO [phone] Agnes amaral Agnes Amaral MD LAB BLOOD ORDERABLES Radha l Result Performing Organization Address [facility] Co de Phone Number DANICARITA MACIAS [address] [facility] [place] [address] * Ferritin (10/01/2024 8:40 AM EXHIBITION SPECIALIST) Ferritin 194 30 - 400 ng/mL Blood Venous blood specimen / Unknown 10/01/2024 8:40 AM EXHIBITION SPECIALIST 10/01/2024 5:31 PM EXHIBITION SPECIALIST Agnes Amaral MD LAB BLOOD ORDERABLES Radha l Result Performing Organization Address City/[facility] Co de Phone Number DANICARITA [address] [facility] [place] [address] * Vitamin B12 (10/01/2024 8:40 AM EXHIBITION SPECIALIST) Vitamin B12 1,244 230 - 1,250 pg/mL Blood Venous blood specimen / Unknown 10/01/2024 8:40 AM EXHIBITION SPECIALIST 10/01/2024 5:31 PM EXHIBITION SPECIALIST Narrative [facility] - 10/01/2024 6:24 PM EXHIBITION SPECIALIST FAX RESULTS TO [phone] Agnes amaral Agnes Amaral MD LAB BLOOD ORDERABLES Radha soriano Result [facility] [address] Department [place] [address] * (ABNORMAL) Comprehensive metabolic panel (10/01/2024 8:40 AM EXHIBITION SPECIALIST) Sodium 137 135 - 145 mmol/L Potassium, pl 4.4 3.3 - 4.9 mmol/L [facility]ER CH Chloride 100 97 - 110 mmol/L [facility] CH CO2 23 22 - 32 mmol/L [facility]ER CH Anion gap 14 2 - 15 mmol/L [facility]ER CH BUN 23 6 - 25 mg/dL [facility] CH Creatinine 1.47(H) 0.80 - 1.30 mg/dL [facility] CH Glucose 97 70 - 199 mg/dL CERNER CH Comment: Interpretive Data Fasting glucose >/= 126 mg/dl is diagnostic for diabetes. Fasting is defined as no caloric intake for at least 8 hours. Fasting glucose between 100 mg/dl to 125 mg/dl is diagnostic of prediabetes. In a patient with classic symptoms of hyperglycemia or hyperglycemic crisis, a random glucose >/= 200 mg/dl is diagnostic for diabetes. In the absence of unequivocal hyperglycemia, results should be confirmed by repeat testing. The classification and Diagnosis of Diabetes Diabetes Care 2021; 46: S19-S40. Current interpretive data was last revised 2022. Calcium 9.6 8.5 - 10.3 mg/dL C[facility]ER CH Bilirubin, total 0.6 0.1 - 1.2 mg/dL CERNER CH Protein, pl 7.3 6.5 - 8.5 g/dL [facility] CH Albumin 4.1 3.5 - 5.0 g/dL [facility]ER CH Alk phos 74 40 - 130 Units/L [facility] CH ALT 9 7 - 55 Units/L [facility] AST 19 10 - 50 Units/L [facility]ER CH Blood Venous blood specimen / Unknown 10/01/2024 8:40 AM EXHIBITION SPECIALIST 10/01/2024 5:31 PM EXHIBITION SPECIALIST Narrative [facility] - 10/01/2024 6:24 PM EXHIBITION SPECIALIST FAX RESULTS TO [phone] Agnes amaral Agnes Amaral MD LAB BLOOD ORDERABLES Radha l Result Performing Organization Address [facility] de Phone Number CHARLY MACIAS [address] [facility] [employer] [place] [address] * PSA screen (04/28/2024 8:20 AM CDT) PSA-Total 2.50 <=6.20 ng/mL Comment: Interpretive Data AGE SEX REFERENCE INTERVAL 0 minutes-150 years Female None 0 minutes-49 years Male None 50-59 years Male 0-3.90 60-69 years Male 0-5.40 70-79 years Male 0-6.20 80-150 years Male 0-6.20 The Orion PSA Total assay procedure was used. Results from different manufacturers or methods may not be comparable. Serial testing should be performed using the same method. Current interpretive data last revised 22. Blood 04/28/2024 8:20 AM CDT 04/28/2024 3:26 PM CDT Wilner Bolaños MD LAB BLOOD ORDERABLES Fi nal Result Performing Organization Address [facility] de Phone Number CHARLY MACIAS [address] [place] [address] * Colonoscopy (05/25/2023) Anatomical Region Laterality Modality Other Generic External Data Provider ENDOSCOPY PROCEDU RES Final Result * CT Abdomen Pelvis WO Contrast (05/05/2021 2:53 PM CDT) Anatomical Region Laterality Modality Body N/A Computed Tomogra phy 05/05/2021 3:01 PM CDT Narrative 05/05/2021 3:13 PM CDT EXAM DESCRIPTION: CT ABDOMEN PELVIS WO CONTRAST REASON FOR STUDY: Abdominal pain, acute, nonlocalized Diffuse abd pain with diarrhea x 2 weeks, Hx of ulcerative colitis TECHNIQUE: CT scan of the abdomen and pelvis performed without intravenous and without oral contrast using helical scanning technique. Reconstructed coronal and sagittal MPR images reviewed. All images stored on PACS. Automated exposure control was used as a dose optimization technique for this examination. COMPARISON: 02/28/2019 FINDINGS: The sensitivity for detection of visceral lesions is diminished without the use of intravenous contrast. LOWER CHEST: Hiatal hernia noted. LIVER: Normal size. No identified cystic or solid masses. GALLBLADDER: Unremarkable gallbladder BILE DUCTS: No intrahepatic or extrahepatic ductal dilatation. SPLEEN: Normal size. No focal lesions. PANCREAS: No identified cystic or solid masses. No significant calcifications. No adjacent inflammation or peripancreatic fluid collections. Pancreatic duct not dilated. ADRENALS: Normal. KIDNEYS/URINARY TRACT: No identified significant cystic or solid masses. No stones. No hydronephrosis or hydroureter. Urinary bladder is unremarkable. GI: There is evidence of colitis involving the splenic flexure and descending colon. There also colitis involving the sigmoid colon. There is no abscess or perforation. Findings are consistent with ulcerative colitis. PERITONEUM: No ascites or free air. RETROPERITONEUM: No mass or adenopathy. REPRODUCTIVE: No significant abnormality. VASCULATURE: No abdominal aortic aneurysm. MUSCULOSKELETAL: No significant abnormality. OTHER: No other abnormality. IMPRESSION: Evidence of colitis primarily involving the proximal sigmoid colon and descending colon. No perforation or abscess is noted THIS IS AN ELECTRONICALLY VERIFIED FINAL REPORT 05/05/2021 3:13 PM - Electronically signed by Eros Bautista M.D. NC: CURT Report ID: [id number] Reading Location: [place] [address] Procedure Note Eros Bautista MD - 05/05/2021 EXAM DESCRIPTION: CT ABDOMEN PELVIS WO CONTRAST REASON FOR STUDY: Abdominal pain, acute, nonlocalized Diffuse abd painwith diarrhea x 2 weeks, Hx of ulcerative colitis TECHNIQUE: CT scan of the abdomen and pelvis performed withoutintravenous and without oral contrast using helical scanning technique. Reconstructed coronal and sagittal MPR images reviewed. All images stored on PACS. Automated exposure control was used as a dose optimization technique forthis examination. COMPARISON: 02/28/2019 FINDINGS: The sensitivity for detection of visceral lesions is diminished withoutthe use of intravenous contrast. LOWER CHEST: Hiatal hernia noted. LIVER: Normal size. No identified cystic or solid masses. GALLBLADDER: Unremarkable gallbladder BILE DUCTS: No intrahepatic or extrahepatic ductal dilatation. SPLEEN: Normal size. No focal lesions. PANCREAS: No identified cystic or solid masses. No significant calcifications. No adjacent inflammation or peripancreatic fluidcollections. Pancreatic duct not dilated. ADRENALS: Normal. KIDNEYS/URINARY TRACT: No identified significant cystic or solid masses.No stones. No hydronephrosis or hydroureter. Urinary bladder isunremarkable. GI: There is evidence of colitis involving the splenic flexure anddescending colon. There also colitis involving the sigmoid colon. There is noabscess or perforation. Findings are consistent with ulcerative colitis. PERITONEUM: No ascites or free air. RETROPERITONEUM: No mass or adenopathy. REPRODUCTIVE: No significant abnormality. VASCULATURE: No abdominal aortic aneurysm. MUSCULOSKELETAL: No significant abnormality. OTHER: No other abnormality. IMPRESSION: Evidence of colitis primarily involving the proximal sigmoid colon and descending colon. No perforation or abscess is noted THIS IS AN ELECTRONICALLY VERIFIED FINAL REPORT 05/05/2021 3:13 PM - Electronically signed by Eros Bautista M.D. NC: CURT Report ID: [id number] Reading Location: [place] [address] Margarita Rodriguez NP IMG CT PROCEDURES Final Re sult * Hepatitis C antibody (12/21/2016) SCRIBED HCV ab negative [facility] Blood specimen (specimen) Narrative [facility] - 12/21/2016 Result already scanned in media Historical Provider LAB MICROBIOLOGY - KIKE L ORDERABLES Final Result [facility] from Last 3 Months or Most Recently Relevant to Health Maintenance Insurance [facility] MEDICARE [facility] Address: [place] [id number] [place] [address] [facility] [employer] [facility] MEDICARE [facility] CHOICE PLUS MEDICARE SOLUTIONS Advance Directives For more information, please contact: [phone] * Full Code (Latest Code Status on File) Date Activated Date Inactivated Comments 04/22/2019 11:44 AM 04/22/2019 4:27 PM * Full Code Date Activated Date Inactivated Comments 02/28/2019 4:55 PM 03/04/2019 2:51 PM * Full Code Date Activated Date Inactivated Comments 06/12/2018 1:47 PM 06/13/2018 7:20 PM Care Teams Disc Pad Plate Filler Relationship Specialty Start Date End Date Wilner Bolaños MD PCP - General 12/15/16 Sangeetha Parra [facility] Liquid Waste Treatment Plant Operator Physical Therapy 06/03/18 Felicia Sales NP Nurse Practitioner Nurse Practitioner 03/03/19
--- OUTSIDE RECORDS SUMMARY | 2024-12-04 12:39 | XMS_ITS | Clinical Summary ---
Author Organization [facility] Address [address] [place] [address] Care Team Providers Care Procurement Forester Name Role Phone Wilner Bolaños MD Primary Care Provider David Gill MD Unavailable [phone] Source Comments [facility],non-owned Affiliates and Associated Physician Practices is amultiple site organization consisting of ambulatory clinics and hospital sitesin [place], [place], [place] and [place]. This disclosure is being madepursuant to the Care Everywhere program and may not contain all information available regarding this patient. Last updated 18.[facility] Allergies Active Allergy Reactions Criticality Noted Date Comments Contrast-Iodinated Agents For Ct/Other Urticaria High 05/14/2020 Severe hives that took weeks to go away Prednisone Psychiatric Medium 08/21/2017 Terazosin Palpitations Low 11/23/2017 Tachycardia Medications * Be aware that medications may not be up to date on this document. Alwaysverify current medications with the patient. Medication Sig Dispensed Refills Start Date End Date Status losartan-hydroCHLOROt hiazide (HYZAAR) 100-12.5 MG tablet once daily 03/06/2020 Active folic acid (FOLVITE) 1 MG tablet 02/26/2020 Active prednisoLONE acetate (PRED FORTE) 1 % ophthalmic suspension 11/21/2019 Act briseida vitamin b-12 (CYANCOBALAMIN) 1000 MCG tablet cr Take 5,000 mg by mouth Two times a week Active clobetasol emollient (TEMOVATE E) 0.05 % cream Apply to affected area 2 times daily Active rivaroxaban (XARELTO) 20 MG tablet Take 20 mg by mouth once daily Active Probiotic Product (PROBIOTIC DAILY PO) Take by mouth once daily Active Cholecalciferol (VITAMIN D-3) 125 MCG (5000 UT) Take by mouth once daily Active Ferrous Sulfate (SLOW RELEASE IRON PO) Take by mouth once daily Active Multiple Vitamins-Minerals (ICAPS AREDS 2 PO) Take by mouth 2 times daily Active Coenzyme Q10 (COQ10) 100 MG Take by mouth once daily Active azaTHIOprine (IMURAN) 50 MG tablet 12/01/2021 Active fluocinolone (DERMOTIC) 0.01 % otic oil INSTILL 5 DROPS INTO EACH EAR TWO TIMES A DAY 10/25/2021 Active Active Problems Problem Noted Date Diagnosed Date Primary osteoarthritis of left knee 2021 H/O unilateral nephrectomy 04/14/2020 History of total right knee replacement 03/26/20 20 Age-related cataract of both eyes 10/23/2019 Overview (03/26/2020): Last Assessment & Plan: Pt wishes to proceed forward with cataract extraction of BL eyes as directed by turkey egg gatherer and desired by Pt. Preoperative clearance provided today in clinic Paroxysmal atrial fibrillation 03/04/2019 Overview (03/26/2020): Last Assessment & Plan: No BB due to bradycardia, on chronic Eliquis Benign prostatic hyperplasia with urinary retent ion 11/23/2017 Overview (03/26/2020): Last Assessment & Plan: Asymptomatic with last PSA of 2.99. Will Cnt. To monitor with upcoming PSA labs in 3 months as scheduled Claustrophobia 11/23/2017 Overview (03/26/2020): Last Assessment & Plan: Patient is followed by Psychiatry. He will continue routine follow-up and medications as previously directed by costume specialist. Social History Tobacco Use Types Packs/Day Years Used Date Smoking Tobacco: Former Cigarettes Q uit: 12/17/1999 Smokeless Tobacco: Never Alcohol Use Standard Drinks/Week Comments Not Currently 0 (1 standard drink = 0.6 oz pur e alcohol) Sex and Gender Information Value Date Recorded Sex Assigned at Not on file Gender Identity Not on file Sexual Orientation Not on file Last Filed Vital Signs Vital Sign Reading Time Taken Comments Blood Pressure 160/80 05/14/2020 4:01 PM CDT Pulse 99 05/14/2020 3:18 PM CDT Temperature 36.3 C (97.4 F) 05/14/2020 3:18 PM CDT Respiratory Rate 20 05/14/2020 3:18 PM CDT Oxygen Saturation 96% 05/14/2020 3:18 PM CDT Inhaled Oxygen Concentration - - Weight 117.9 kg (260 lb) 05/14/2020 3:18 PM CDT Height 177.8 cm (5' 10 ) 05/14/2020 3:18 PM CDT Body Mass Index 37.31 05/14/2020 3:18 PM CDT Plan of Treatment Health Maintenance Due Date Last Done Comments COLOGUARD (AGES 45-75) - COLON CA SCREENING 1949 COLON MONITORING 1949 COLONOSCOPY - COLON CA SCREENING 1949 CT COLONOGRAPHY - COLON CA SCREENING 1949 Colorectal Cancer Screening 1949 FIT - COLON CA SCREENING 1949 FLEX SIG - COLON CA SCREENING 1949 LIPID TESTING 1949 MEDICARE AWV 12 MONTHS 1949 HEPATITIS C SCREENING 12/12/1967 DTAP/TDAP/TD VACCINES (1 - Tdap) 1968 PNEUMOCOCCAL VACCINE 50+ (1 of 2 - PCV) 1968 ZOSTER VACCINE (1 of 2) 1968 Respiratory Syncytial Virus (RSV) Vaccine Pt: or over 60 yrs (1 - Risk 60-74 years 1-dose series) 2009 AAA SCREENING 2014 COVID-19 VACCINE (3 - Pfizer risk series) 12/28/2020 11/30/2020, 11/09/2020 INFLUENZA VACCINE (#1) 2024 9, 05/18/2019, 06/06/2018, Additional history exists DEPRESSION SCREENING 09/17/2024 MEDICARE AWV CALENDAR YEAR 2024 HEPATITIS B VACCINE Aged Out No longe r eligible based on patient's age to complete this topic HIB VACCINE Aged Out No longer eligi ble based on patient's age to complete this topic HPV VACCINE Aged Out No longer eligi ble based on patient's age to complete this topic MENINGOCOCCAL (Group B) VACCINE SHARED DECISION-MAKING Aged Out No longer eligible based on patient's age to complete this topic MENINGOCOCCAL GROUPS A/C/Y/W VACCINE Aged Out No longer eligible based on patient's age to complete this topic Advance Directives Documents on File Type Date Recorded Patient Event Decorator And Designer Expl anation Adv Directive/Living Will/POA 05/19/2020 6:52 PM Care Teams Procurement Forester Relationship Specialty Start Date End Date Wilner Bolaños MD [address] [facility] [address] [place] [id number] PCP - General Internal Medicine 03/26/20 [place] [address] [place] [address] Orthopedic Surgery 03/26/20
--- OUTSIDE RECORDS SUMMARY | 2024-12-04 12:39 | XMS_ITS | Encounter Summary ---
Author Organization [facility] Address [address] [place] [address] Care Team Providers Care Seasonal Clerk Name Role Phone Wilner Bolaños MD Primary Care Provider Sangeetha Parra PTA Unavailable Unavailable Felicia Sales PEDIATRIC ONCOLOGIST Unavailable [phone] Encounter Details Date Type Department Care Team (Late st Contact Info) Description 09/26/2024 Telephone [facility] Primary Care at [address] [place] [address] Wilner Bolaños MD [address] [place] [address] [address] [place] [address] Social History Tobacco Use Types Packs/Day Years [...] points, staff should administer the PHQ-9) 0 05/07/2024 Sex and Gender Information Value Date Recorded Sex Assigned at Not on file 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
--- OUTSIDE RECORDS SUMMARY | 2024-12-04 12:39 | XMS_ITS | Encounter Summary ---
Author Organization [facility] Address 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
--- OUTSIDE RECORDS SUMMARY | 2024-12-04 12:39 | XMS_ITS | Clinical Summary ---
Author Organization [facility] Address [address] [place] [id number] Care Team Providers Care Tenter Frame Back Tender Name Role Phone Wilner Bolaños MD Primary Care Provider Sangeetha Parra RETAIL MARKETING MANAGER Unavailable Unavailable Felicia Sales SUPERVISOR BEATER ROOM Unavailable Allergies Active Allergy Reactions Criticality Noted Date [...] Units total) by mouth daily Active vitamins A,C,E-zinc-telescope maintenance per 7,[id number] zwqg-ix-lpbn tablet,delayed release (DR/EC) Take by mouth daily [...] face daily as directed. 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 Cont with metoprolol and eliquis for anticoagulation pending upcoming visit with otr van cdl truck driver. 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 Will Cnt. To monitor with upcoming PSA labs in 3 months as scheduled Assessment & Plan (11/23/2017 11:59 AM WAGON PERSON): Urology consultation recommended. Patient had been referred [...] 02/26/2017 Assessment & Plan (11/07/2019 12:55 PM WAGON PERSON): Will change hydralazine and clonidine to Losartan. Pt to call me with blood pressure results in 1 week. May consider adding Amlodipine if blood pressure is not well controlled Assessment & Plan (10/23/2019 8:48 AM WAGON PERSON): Normotensive in clinic. Cnt. Prior prescribed antihypertensives, dash/heart healthy diet and F/U otr van cdl truck driver scheduled Assessment & Plan (08/18/2019 4:15 PM WAGON PERSON): BP slightly elevated in office today. Cont. [...] monitor. Assessment & Plan (11/23/2017 12:03 PM WAGON PERSON): Blood pressure elevated today. Patient did have [...] Severe obstructive sleep apnea 01/31/2014 Overview (12/20/2016): [facility] SLEEP [facility]NEA Assessment & Plan (11/07/2019 12:56 PM WAGON PERSON): Pt is compliant with CPAP Assessment & Plan (10/23/2019 8:47 AM WAGON PERSON): Stable on current CPAP settings Assessment & [...] REFLUX Assessment & Plan (10/23/2019 8:47 AM WAGON PERSON): Cnt. Pepcid and dietary modifications as prior advised. Ulcerative colitis 01/31/2014 Overview (12/21/2016): ULCERATVE COLITIS UNSPCF Assessment & Plan (03/01/2019 12:03 AM CDT): Continue sulfasalazine Assessment & Plan (08/21/2017 2:56 PM WAGON PERSON): Daily blood with 4 bms/day and much [...] Nasal saline spray (Simply saline, Little Remedies, [place], [place]) 2 second sprays or 2 squeezes into [...] 12/17/2020 Assessment & Plan (10/23/2019 8:46 AM WAGON PERSON): Pt was advised to continue current therapy [...] 12/17/2020 Assessment & Plan (10/23/2019 8:49 AM WAGON PERSON): Pt wishes to proceed forward with cataract extraction of BL eyes as directed by filter plant operator and desired by Pt. Preoperative clearance provided [...] (05/28/2018): Added automatically from request for surgery [id number] Urinary retention 11/23/2017 03/14/2018 Assessment & Plan (11/23/2017 12:07 PM WAGON PERSON): Postvoid bladder scan revealing 129 mL of [...] 01/17/2018 Assessment & Plan (11/23/2017 11:59 AM WAGON PERSON): Urology consultation recommended. Patient had been referred [...] 12/17/2020 Assessment & Plan (11/23/2017 12:04 PM WAGON PERSON): Patient is followed by Psychiatry. He will continue routine follow-up and medications as previously directed by psychiatric aide. Acute prostatitis 11/23/2017 01/17/2018 Assessment & Plan (11/23/2017 11:58 AM WAGON PERSON): Urine sample will be submitted for urinalysis with reflex to microscopy and culture. Patient has previously had a poor response to Bactrim for prostatitis. Therefore, we are going to begin treatment with Cipro which she has previously tolerated well with a satisfactory response. Skin lesion of back 02/26/2017 04/14/20 Assessment & Plan (02/26/2017 8:51 AM CDT): Referral arranged to local glue mixer, Dr. Lucía Trujillo for 2nd opinion per patient request. Nasal obstruction 07/02/2015 04/14/2020 Overview (12/21/2016): Refractory obstruction of nasal airway Biliary sludge 12/22/2013 12/17/2020 Overview (12/21/2016): Gallbladder sludge Encounters Date Type Department Care Team Description 12/03/2024 Telephone [facility] [address] [phone] Wilner Bolaños MD Referral Request 11/13/2024 10:30 AM WAGON PERSON Office Visit [facility] Primary Care at [address] [phone] Wilner Bolaños MD Essential hypertension (Primary Dx); BMI 36.0-36.9,adult; Benign prostatic hyperplasia with urinary retention; CKD stage G3a/A1, GFR 45-59 and albumin creatinine ratio <30 mg/g (HCC); Gastroesophageal reflux disease without esophagitis; H/O unilateral nephrectomy; Arthritis of left knee; Severe obstructive sleep apnea; Ulcerative pancolitis without complication (HCC); Paroxysmal atrial fibrillation (HCC); Severe obesity (HCC); Urine frequency; Mixed hyperlipidemia 11/10/2024 Orders Only [facility] Primary Care at [address] [phone] Wilner Bolaños MD Skin lesion (Primary Dx) 10/28/2024 9:15 AM WAGON PERSON Lab [facility] Outpatient Lab at [address] [phone] Essential hypertension (Primary Dx) 10/28/2024 9:11 AM WAGON PERSON - 10/28/2024 11:59 PM WAGON PERSON Hospital Encounter [address] [address] CKD stage G3a/A1, GFR 45-59 and albumin creatinine ratio <30 mg/g (HCC); Essential hypertension Discharge Disposition: Discharge to home or self care 10/21/2024 Telephone [facility] Primary Care at [address] [address] Wilner Bolaños MD Referral Request 10/07/2024 Telephone [facility] Group Primary Care at [address] [address] Wilner Bolaños MD Referral Request 10/01/2024 8:40 AM WAGON PERSON - 10/01/2024 11:59 PM WAGON PERSON Hospital Encounter [address] [address] [employer]'s nodule Discharge Disposition: Discharge to home or self care 10/01/2024 8:15 AM WAGON PERSON Lab [facility] Outpatient Lab at [address] [phone] [employer]'s nodule (Primary Dx); Essential hypertension 09/30/2024 ACO Quality [facility] Accountable Care Organization [address] [place], [place] [phone] Pushpa Kimball MA 09/26/2024 Telephone [facility] Primary Care at [address] [phone] Wilner Bolaños MD Medical Question/Miscellaneous 09/26/2024 Telephone [facility] Primary Care at [address] [address] Wilner Bolaños MD 09/15/2024 Orders Only [facility] Primary Care at [address] [phone] Wilner oBlaños MD 09/12/2024 Telephone [facility] Primary Care at [address] [address] Sheridan Smith MA 09/12/2024 Orders Only [facility] Primary Care at [address] [phone] Sheridan Smith MA 09/12/2024 Orders Only [facility] Primary Care at [address] [address] Wilner Bolaños MD 09/09/2024 Orders Only [facility] Primary Care at [address] [phone] Wilner Bolaños MD from Last 3 Months Immunizations Immunization Administration Dates Next Due Influenza, [...] 11/19/2008 ZOSTER LIVE 12/22/2009 ZOSTER Recombinant 01/09/2019,11/02/2018 Surgical History Surgery Date Site/Laterality Comments NEPHRECTOMY Nephrectomy age 7 for chronic infection OTHER SURGICAL HISTORY left kidney removal OTHER SURGICAL HISTORY nose surgery 4x WRIST SURGERY left wrist surgery WRIST FRACTURE SURGERY OTHER SURGICAL HISTORY Uvula shortened FRACTURE SURGERY 03/2007 JOINT REPLACEMENT 04/2019 Medical History Medical History Date Comments Hx Other Medical 2007 cxr Hx Other Medical 2007 bone density Asbestosis (HCC) 1999 asbestosis Hx Other Medical 1999 colitis Hx Other Medical 2007 metal plate/scr ews left wrist Hx Other Medical ENT Asbestosis (HCC) asbestosis Sleep apnea Sleep apnea Hx Other Medical bumps removed f rom skin; Comments: In December of 2015 Ulcerative colitis (HCC) Chronic kidney disease left neph rectomy 1957, enlarged at P[facility] (postoperative nausea and vomiting) Hypertension Family History Medical History Relation Name Comments Other Father ; Other Mother ; high blood pressure Other Sister of COVID Relation Name Status Comments Father Mother Sister Social History Tobacco Use Types Packs/Day Years [...] on file Legal Sex Male 6:05 PM WAGON PERSON Gender Identity Not on file Sexual Orientation Not on file Obstetrics History Last Filed Vital Signs Vital Sign Reading Time Taken Comments Blood Pressure 132/62 11/13/2024 9:59 AM WAGON PERSON Pulse 84 11/13/2024 9:59 AM WAGON PERSON Temperature 36.4 C (97.5 F) 11/13/2024 9:59 AM WAGON PERSON Respiratory Rate 16 11/13/2024 9:59 AM WAGON PERSON Oxygen Saturation 98% 11/13/2024 9:59 AM WAGON PERSON Inhaled Oxygen Concentration - - Weight 116.6 kg (257 lb) 11/13/2024 9:59 AM WAGON PERSON Height 177.8 cm (5' 10 ) 11/13/2024 9:59 AM WAGON PERSON Body Mass Index 36.88 11/13/2024 9:59 AM WAGON PERSON Plan of Treatment Health Maintenance Due Date Last Done Comments Hepatitis B Screening 12/17/1968 DTaP/Tdap/Td Vaccine (2 - Td or Tdap) 11/19/2018 11/19/2008 Covid-19 Vaccine (5 - 2023-2 5 season) 2024 01/14/2022, 05/18/2021, 11/30/2020, Additional history exists Influenza Vaccine (#1) 2024 , 06/08/2022, 06/10/2021, Additional history exists Prostate Cancer Screening-PSA 04/28/2025, 04/18/2023, 04/03/2023, Additional history exists Well Visit 65+ 05/07/2025 05/07/2024, 04/17, 04/25/2022, Additional history exists Depression Screening 11/13/2025 11/13/2024, 05/07/2024, 10/29/2023, Additional history exists Fall Risk Assessment 11/13/2025 11/13/2024, 05/07/2024, 10/29/2023, Additional history exists Colon Cancer Screening-Colonoscopy 05/25/2033 05/25/2023, 05/17/2022, 03/24/2016, Additional history exists Pneumococcal vaccine 65+ Completed 016, 12/20/2012, 11/07/2007 Hepatitis C Screening Completed 12/21/2016 Zoster Vaccine Completed 01/09/2019, 10/18, 12/22/2009 Abdominal Aortic Aneurysm (A AA) Screen Completed 05/05/2021 Colon Cancer Screening-CT Colonography Discontinued 05/25/2023, 05/17/2022, 03/24/2016, Additional history exists Colon Cancer Screening-DNA Stool Discontinued 05/25/2023, 05/17/2022, 03/24/2016, Additional history exists Colon Cancer Screening-FIT Discontinued 05/25, 05/17/2022, 03/24/2016, Additional history exists Colon Cancer Screening-Sigmoidoscopy Discontinued 05/25/2023, 05/17/2022, 03/24/2016, Additional history exists Medical Devices Implanted Type Area Admitting Coordinator Device Identifier Shelf Expiration Date Model / Serial / Lot [employer] [id number] Smartset High Viscosity Cement 40gm Bone Gentamicin - [id number] Implanted:Qty: 1 on 06/12/2018 by Wilner Valenzuela MD at [facility] Right: Knee [employer] 06/16/2019 [id number] / / [id number] [employer] [id number] Smartset High Viscosity Cement 40gm Bone Gentamicin - [id number] Implanted:Qty: 1 on 06/12/2018 by Wilner Valenzuela MD at [facility] Right: Knee [employer] 06/16/2019 [id number] / / [id number] [employer] [id number] Attune Cemented Posterior Stabilize Knee Right 6 Component - [id number] Implanted:Qty: 1 on 06/12/2018 by Wilner Valenzuela MD at [facility] Right: Knee [employer] 12/15/2027 [id number] / / [id number] [employer] [id number] Attune S+ Cement Fix Bearing Knee 7 Baseplate Tibial - [id number] Implanted:Qty: 1 on 06/12/2018 by Wilner Valenzuela MD at [facility] Right: Knee [employer] 10/17/2027 [id number] / / [id number] [employer] [id number] Attune 5mm Posterior Stabilize Fix Bearing Knee 6 Insert Tibial - [id number] Implanted:Qty: 1 on 06/12/2018 by Wilner Valenzuela MD at [facility] Right: Knee [employer] 01/14/2023 [id number] / / [id number] Procedures Procedure Name Priority Date/Time Associated Diagnosis Comments EGFR Routine 10/28/2024 9:11 AM WAGON PERSON CKD stage G3a/A1, GFR 45-59 and albumin creatinine ratio <30 mg/g (HCC) Essential hypertension LIPID PANEL Routine 10/28/2024 9:11 AM WAGON PERSON Essential hypertension COMPREHENSIVE METABOLIC PANEL Routine 10/28/2024 9:11 AM WAGON PERSON CKD stage G3a/A1, GFR 45-59 and albumin creatinine ratio <30 mg/g (HCC) Essential hypertension EGFR Routine 10/01/2024 8:40 AM WAGON PERSON [employer]'s nodule DIFFERENTIAL AUTO Routine 10/01/2024 8:4 0 AM WAGON PERSON [employer]'s nodule COMPREHENSIVE METABOLIC PANEL Routine 10/01/2024 8:40 AM WAGON PERSON [employer] nod[employer] CBC WITH AUTO DIFFERENTIAL Routine 10/01/2024 8:40 AM WAGON PERSON [employer] nod[employer] IRON PROFILE W/ IBC Routine 10/01/2024 8 :40 AM WAGON PERSON [employer] VITAMIN B12 Routine 10/01/2024 8:40 AM WAGON PERSON [employer] nodule FOLATE Routine 10/01/2024 8:40 AM WAGON PERSON [employer] nodule CENTROMERE ANTIBODY, IGG Routine 10/01/2024 8:40 AM WAGON PERSON [employer] nodule FERRITIN Routine 10/01/2024 8:40 AM WAGON PERSON [employer] nodule PSA SCREEN Routine 04/28/2024 8:20 AM CDT Urine frequency COLONOSCOPY Routine 05/25/2023 CT ABDOMEN PELVIS WO CONTRAST Schedule FAUSTINO, Read FAUSTINO (Appt Today, Awaiting Results) 05/05/2021 2:53 PM CDT Abdominal pain Diarrhea, unspecified type Hx of ulcerative colitis HEPATITIS C ANTIBODY Routine 12/21/2016 from Last 3 Months or Most Recently Relevant to Health Maintenance Results * (ABNORMAL) eGFR (10/28/2024 9:11 AM WAGON PERSON) eGFR 50(L) >=60 mL/min/1. 73 m2 Comment: [...] of Race in Diagnosing Kidney Disease, JASN 202). The CKD-EPI equation should not be used for patients with unstable renal function and has not been validated in children and those over 70. Current interpretive data was last reviewed 2021. Blood 10/28/2024 9:11 AM WAGON PERSON 10/28/2024 3:53 PM WAGON PERSON us Wilner Bolaños MD LAB BLOOD ORDERABLES Fi nal Result CHARLY [address] [place] [address] * (ABNORMAL) Lipid panel (10/28/2024 9:11 AM WAGON PERSON) Cholesterol 156 30 - 199 mg/dL Comment: [...] on 2018. Triglycerides 96 <=149 mg/dL CHARLY MACIAS Comment: Interpretive Data Ages [...] revised on 2024. Non-HDL Cholesterol 118 mg/dL CHARLY MACIAS Comment: Interpretive Data Ages [...] last revised on 2018. Chol/HDL ratio 4 CHARLY MACIAS Blood 10/28/2024 9:11 AM WAGON PERSON 10/28/2024 3:28 PM WAGON PERSON Narrative CHARLY - 10/28/2024 4:33 PM WAGON PERSON Has the patient been fasting for 8 hours or more?->Yes us Wilner Bolaños MD LAB BLOOD ORDERABLES Fi nal Result CHARLY MACIAS [address] [place] [address] * (ABNORMAL) Comprehensive metabolic panel (10/28/2024 9:11 AM WAGON PERSON) Sodium 138 135 - 145 mmol/L Potassium, pl 4.5 3.3 - 4.9 mmol/L [facility] CH Chloride 101 97 - 110 mmol/L CERNER [...] Units/L [facility]ER CH Blood 10/28/2024 9:11 AM WAGON PERSON 10/28/2024 3:28 PM WAGON PERSON Narrative [facility] CH - 10/28/2024 4:33 PM WAGON PERSON Has the patient fasted?->Yes us Wilner Bolaños MD LAB BLOOD ORDERABLES Fi nal Result CERNER [address] [place] [address] * (ABNORMAL) eGFR (10/01/2024 8:40 AM WAGON PERSON) eGFR 50(L) >=60 mL/min/1. 73 m2 Comment: [...] last reviewed 2021. Blood 10/01/2024 8:40 AM WAGON PERSON 10/01/2024 5:36 PM WAGON PERSON Agnes Amaral MD LAB BLOOD ORDERABLES Radha l Result [facility] [address] [place] [address] * Differential, auto (10/01/2024 8:40 AM WAGON PERSON) Pathologist [facility] Neutrophil abs 3.3 1.5 - 6.5 K/cumm Imm gran abs 0.0 0.0 - 0.1 K/cumm [facility] Lymphocyte abs 1.8 0.8 - 3.3 K/cumm [facility] Monocyte abs 0.7 0.2 - 0.8 K/cumm [facility] Eosinophil abs 0.1 0.0 - 0.5 K/cumm [facility] Basophil abs 0.1 0.0 - 0.1 K/cumm [facility] Neutrophil pct 55.4 % [facility] Comment: Interpretive Data Percent cell count reference ranges are not reported, since discordance with absolute values may lead to misinterpretation of CBC data. Current Interpretive Data was last revised on 2017. Imm gran pct 0.3 % CERNER Comment: Interpretive Data Percent cell count reference ranges are not reported, since discordance with absolute values may lead to misinterpretation of CBC data. Current Interpretive Data was last revised on 2017. Lymphocyte pct 30.4 % C[facility]ER Comment: Interpretive Data Percent cell count reference ranges are not reported, since discordance with absolute values may lead to misinterpretation of CBC data. Current Interpretive Data was last revised on 2017. Monocyte pct 11.1 % [facility]ER Comment: Interpretive Data Percent cell count reference ranges are not reported, since discordance with absolute values may lead to misinterpretation of CBC data. Current Interpretive Data was last revised on 2017. Eosinophil pct 2.0 % [facility]ER Comment: Interpretive Data Percent cell count reference ranges are not reported, since discordance with absolute values may lead to misinterpretation of CBC data. Current Interpretive Data was last revised on 2017. Basophil pct 0.8 % [facility] Comment: Interpretive Data Percent cell count reference ranges are not reported, since discordance with absolute values may lead to misinterpretation of CBC data. Current Interpretive Data was last revised on 2017. Blood 10/01/2024 8:40 AM WAGON PERSON 10/01/2024 5:31 PM WAGON PERSON Agnes Amaral MD LAB BLOOD ORDERABLES Radha l Result [facility] [address] [address] Department [place] [address] * Centromere ab IgG (10/01/2024 8:40 AM WAGON PERSON) Anticentromere <0.2 <=0.9 Ab Index Comment:Testing performed by : [facility], [address] [place]., [address] Blood 10/01/2024 8:40 AM WAGON PERSON 10/02/2024 10:02 AM WAGON PERSON Narrative CHARLY - 10/02/2024 12:45 PM WAGON PERSON FAX RESULTS TO [phone] Agnes amaral Agnes Amaral MD LAB BLOOD ORDERABLES Radha l Result Performing Organization Address [facility]/ZIP Co de Phone Number [facility] [address] Department [place] [address] * (ABNORMAL) Iron profile w/ IBC (10/01/2024 8:40 AM WAGON PERSON) Pathologist [facility] Iron 61 50 - 150 mcg/dL Comment:Testing performed by : [facility], [place], [address] TIBC 245(L) 250 - 400 mcg/dL [facility] Comment:Testing performed by : [place], [address] Transferrin saturation 25 20 - 50 % [facility] Comment:Testing performed by : [place], [address] Blood 10/01/2024 8:40 AM WAGON PERSON 10/01/2024 5:31 PM WAGON PERSON Narrative [facility] - 10/02/2024 4:59 PM WAGON PERSON FAX RESULTS TO [phone] Agnes amaral Agnes Amaral MD LAB BLOOD ORDERABLES Radha l Result Performing Organization Address [facility] Co de Phone Number [facility] [address] [address] Department [place] [address] * (ABNORMAL) CBC with auto differential (10/01/2024 8:40 AM WAGON PERSON) Pathologist [facility] WBC 6.0 3.8 - 9.9 K/cumm Hgb 11.9(L) 13.0 - 17.5 g/dL [facility] Hct 37.3(L) 38.9 - 50.3 % [facility] Plt 268 150 - 400 K/cumm [facility] MPV 9.3 9.1 - 12.3 fL [facility] RBC 3.77(L) 4.30 - 5.80 M/cumm [facility] MCV 98.9(H) 81.3 - 96.4 fL [facility] MCH 31.6 27.1 - 33.3 pg [facility] MCHC 31.9(L) 32.3 - 35.7 g/dL [facility] CH RDW CV 13.6 11.1 - 14.9 % [facility] RDW SD 50.0(H) 35.7 - 48.1 fL [facility] NRBC abs 0.00 0.00 - 0.01 K/cumm [facility] Blood 10/01/2024 8:40 AM WAGON PERSON 10/01/2024 5:31 PM WAGON PERSON Narrative [facility] - 10/01/2024 5:45 PM WAGON PERSON FAX RESULTS TO [phone] Agnes amaral Agnes Amaral MD LAB BLOOD ORDERABLES Radha l Result Performing Organization Address [facility] Co de Phone Number [facility] [address] [place] [address] * Folate (10/01/2024 8:40 AM WAGON PERSON) Folic acid 10.8 >=5.0 ng/mL Comment:Hemolysis present. R esults may be affected. Blood 10/01/2024 8:40 AM WAGON PERSON 10/01/2024 5:31 PM WAGON PERSON Narrative [facility] - 10/01/2024 6:24 PM WAGON PERSON FAX RESULTS TO [phone] Agnes amaral Agnes Amaral MD LAB BLOOD ORDERABLES Radha l Result [facility] [address] [place], [place] [id number] * Ferritin (10/01/2024 8:40 AM WAGON PERSON) Ferritin 194 30 - 400 ng/mL Blood Venous blood specimen / Unknown 10/01/2024 8:40 AM WAGON PERSON 10/01/2024 5:31 PM WAGON PERSON Agnes Amaral MD LAB BLOOD ORDERABLES Radha l Result Performing Organization Address City/[facility] Co de Phone Number CHARLY [address] [place] [address] [place] [address] * Vitamin B12 (10/01/2024 8:40 AM WAGON PERSON) Vitamin B12 1,244 230 - 1,250 pg/mL Blood Venous blood specimen / Unknown 10/01/2024 8:40 AM WAGON PERSON 10/01/2024 5:31 PM WAGON PERSON Narrative [facility] - 10/01/2024 6:24 PM WAGON PERSON FAX RESULTS TO [phone] Agnes amaral Agnes Amaral MD LAB BLOOD ORDERABLES Radha l Result Performing Organization Address [facility] Co de Phone Number CHARLY [address] [address] [place] [address] [place] [address] * (ABNORMAL) Comprehensive metabolic panel (10/01/2024 8:40 AM WAGON PERSON) Pathologist [facility] Sodium 137 135 - 145 mmol/L Potassium, pl 4.4 3.3 - 4.9 mmol/L [facility] Chloride 100 97 - 110 mmol/L [facility] CH CO2 23 22 - 32 mmol/L [facility] Anion gap 14 2 - 15 mmol/L [facility] BUN 23 6 - 25 mg/dL [facility] Creatinine 1.47(H) 0.80 - 1.30 mg/dL [facility] Glucose 97 70 - 199 mg/dL [facility] Comment: Interpretive Data Fasting glucose >/= 126 [...] blood specimen / Unknown 10/01/2024 8:40 AM WAGON PERSON 10/01/2024 5:31 PM WAGON PERSON Narrative [facility] - 10/01/2024 6:24 PM WAGON PERSON FAX RESULTS TO [phone] Agnes amaral Agnes Amaral MD LAB BLOOD ORDERABLES Radha l Result Performing Organization Address [facility] de Phone Number [facility] [address] [place] [address] * PSA screen (04/28/2024 8:20 AM CDT) [...] ORDERABLES Fi nal Result Performing Organization Address [facility] Co de Phone Number [facility] [address] [place] [address] * Colonoscopy (05/25/2023) Anatomical Region Laterality Modality [...] Eros Bautista M.D. [place]: CURT Report ID: [id number] Reading Location: [id number] Procedure Note Eros Bautista MD - 05/05/2021 [...] Eros Bautista M.D. NC: CURT Report ID: [id number] Reading Location: [id number] Margarita Rodriguez NP IMG CT PROCEDURES Final Re sult * Hepatitis C antibody (12/21/2016) SCRIBED HCV ab negative [facility] Blood specimen (specimen) Narrative [facility] - 12/21/2016 Result already scanned in media us Historical Provider LAB MICROBIOLOGY - KIKE L ORDERABLES Final Result [facility] from Last 3 Months or Most Recently Relevant to Health Maintenance Insurance [facility] MEDICARE [facility] ESSENCE ADVANTAGE CHOICE PPO MEDICARE [facility] CHOICE [place] [address] Advance Directives For more information, please contact: [phone] * Full Code (Latest Code Status on File) Date Activated Date Inactivated Comments 04/22/2019 11:44 AM 04/22/2019 4:27 PM * Full Code Date Activated Date Inactivated Comments 02/28/2019 4:55 PM 03/04/2019 2:51 PM * Full Code Date Activated Date Inactivated Comments 06/12/2018 1:47 PM 06/13/2018 7:20 PM Care Teams Tenter Frame Back Tender Relationship Specialty Start Date End Date Wilner Bolaños MD PCP - General 12/15/16 Sangeetha Parra, RETAIL MARKETING MANAGER Donor Specialist Physical Therapy 06/03/18 Felicia Sales NP Nurse Practitioner Nurse Practitioner 03/03/19
--- OUTSIDE RECORDS SUMMARY | 2024-12-04 12:39 | XMS_ITS | Encounter Summary ---
Author Organization [facility] Address [address] [place] [address] Care Team Providers Care Airborne Mission Systems Name Role Phone David Steel MD Primary Care Provider [phone] Encounter Details Date Type Department Care Team (Late st Contact Info) Description 08/22/2000 Outpatient Historical [facility] Primary Care - [address] [place] [address] David Steel MD [address] [address] Social History Tobacco Use Types Packs/Day Years Used Date Smoking Tobacco: Never Assessed Sex and Gender Information Value Date Recorded Sex Assigned at Not on file Legal 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 [address] [place] [address] PCP - General 11/19/00 documented as of this encounter
--- OUTSIDE RECORDS SUMMARY | 2024-12-04 12:39 | XMS_ITS | Encounter Summary ---
Author Organization [facility] Address [address] [place] [address] Care Team Providers Care Children'S Literature Professor Name Role Phone David Steel MD Primary Care Provider [phone] Encounter Details Date Type Department Care Team (Late st Contact Info) Description 06/06/2000 Outpatient Historical [facility] Primary Care - [address] [place] [address] David Steel MD [address] [address] Social History Tobacco Use Types Packs/Day Years Used Date Smoking Tobacco: Never Assessed Sex and Gender Information Value Date Recorded Sex Assigned at Not on file Legal Sex Male 3:47 AM GUEST SERVICES Gender Identity Not on file Sexual Orientation Not on file documented as of this encounter Plan of Treatment Not on file documented as of this encounter Visit Diagnoses Not on filedocumented in this encounter Care Teams Children'S Literature Professor Relationship Specialty Start Date End Date David Steel MD [address] [facility] [address] [place] [address] PCP - General 11/19/00 documented as of this encounter
--- OUTSIDE RECORDS SUMMARY | 2024-12-04 12:39 | XMS_ITS | Encounter Summary ---
Author Organization [facility] Address [address] [facility] [place] [address] Care Team Providers Care Filenet Architect Name Role Phone Wilner oBlaños MD Primary Care Provider David Gill MD Unavailable Encounter Details Date Type Department Care Team (Late st Contact Info) Description 05/04/2020 Lab Requisition [facility] Care DermPath Lab [address] [facility], [place] [address] Marley Alonzo DO [address] [facility] [address] [place] [address] Social History Tobacco Use Types Packs/Day Years Used Date Smoking Tobacco: Never Assessed Sex and Gender Information Value Date Recorded Sex Assigned at Not on file Gender Identity Not on file Sexual Orientation Not on file COVID-19 Exposure Response Date Recorded In the last month, have you been in contact with someone who was confirmed or suspected to have Coronavirus / COVID-19? No / Unsure 04/12/2020 2:01 PM CDT documented as of this encounter Plan of Treatment Not on file documented as of this encounter Procedures Procedure Name Priority Date/Time Associated Diagnosis Comments DERMATOPATHOLOGY Routine 05/03/2020 12:0 0 AM CDT documented in this encounter Results * DERMATOPATHOLOGY (05/03/2020 12:00 AM CDT) Case Report Dermatopathology Report Case: [id number] Authorizing Provider: Marley Alonzo DO Collected: 05/03/2020 12:00 AM Ordering Location: [facility] Received: 05/04/2020 12:48 PM Pathologist: Dimlpe Arroyo MD Specimen: Skin, nasal dorsum 0 2:04 PM CDT DERMATOPATHOLOGY LABORATORY Final Diagnosis Specimen A. SKIN, nasal dorsum: ANGIOFIBROMA (FIBROUS PAPULE) (D21.0) 0 2:04 PM CDT DERMATOPATHOLOGY LABORATORY Clinical History PPW R/O BCC. Atrophic papule. 0 2:04 PM CDT DERMATOPATHOLOGY LABORATORY Gross Description Specimen A: Received is one formalin filled container labeled with the patient's name and designated nasal dorsum. The specimen consists of a shave measuring 0t9x7bn. Jar 0. 0 2:04 PM CDT DERMATOPATHOLOGY LABORATORY Microscopic Description Specimen A. SKIN, nasal dorsum: This dome-shaped lesion contains dilated blood vessels, coarse collagen bundles, and stellate fibroblasts. 0 2:04 PM CDT DERMATOPATHOLOGY LABORATORY Disclaimer An external and internal positive and negative controls are appropriate for the histochemical, immunohistochemical and immunofluorescence stain(s) in this case (if any), except where stated explicitly. The performance characteristics of the stain(s) cited in this report were developed and its performance characteristic determined by the Dermatopathology Laboratory at [facility], directed by Dr. Shasta Loya. These tests need not be, and therefore are not, approved by the [place] Food and Drug Administration. The tests are used for clinical purposes. Billing Codes Specimen Charges Stain Charges 80252 1 0 2:04 PM CDT DERMATOPATHOLOGY LABORATORY Embedded Images 0 2:04 PM CDT DERMATOPATHOLOGY LABORATORY Pathology/Cytolog y TISSUE SPECIMEN FROM SKIN / Unknown 05/03/2020 05/04/2020 12:48 PM CDT Marley Alonzo DO LAB - PATHOLOGY/C YTOLOGY ORDERABLES DERMATOPATHOLOGY LABORATORY [facility] - Department of Dermatology [facility] [address] [place] [address] documented in this encounter Visit Diagnoses Not on filedocumented in this encounter Care Teams Filenet Architect Relationship Specialty Start Date End Date Wilner Bolaños MD [address] [facility] [address] [place] [address] PCP - General Internal Medicine 03/26/20 [place] [address] [place] [address] Orthopedic Surgery 03/26/20 documented as of this encounter
--- OUTSIDE RECORDS SUMMARY | 2024-12-04 12:39 | XMS_ITS | Encounter Summary ---
Author Organization [employer] Address [address] [place] [address] Care Team Providers Care Hepatology Physician Name Role Phone David Steel MD Primary Care Provider [phone] Encounter Details Date Type Department Care Team (Late st Contact Info) Description 11/25/[address] [facility] Support Serv. (Adt Cardiology-[facility]) [address] 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
--- OUTSIDE RECORDS SUMMARY | 2024-12-04 12:39 | XMS_ITS | Encounter Summary ---
Author Organization [facility] Address [address] [place] [address] Care Team Providers Care Regulatory Auditor Name Role Phone Wilner Bolaños MD Primary Care Provider David Gill MD Unavailable [phone] Encounter Details Date Type Department Care Team (Late st Contact Info) Description 10/04/2023 Lab Requisition [facility] - DermPath Lab [address] [facility], [place] [address] Agnes Neri MD [address] [facility] [address] [place] [address] Social History Tobacco Use Types Packs/Day Years [...] Priority Date/Time Associated Diagnosis Comments DERMATOPATHOLOGY Routine 10/04/2023 11:2 1 AM ART MANAGER documented in this encounter Results * DERMATOPATHOLOGY (10/04/2023 11:21 AM ART MANAGER) Case Report Dermatopathology Report Case: [id number] Authorizing Provider: Agnes Neri MD Collected: 10/04/2023 11:21 AM Ordering Location: [facility] DermPath Lab Received: 10/05/2023 08:58 AM Pathologist: Elke Quinn MD Specimen: Skin, crown 4:32 PM [facility] DERMATOPATHOLOGY LABORATORY Final Diagnosis Specimen A. SKIN, crown: HYPERPLASTIC (HYPERTROPHIC) ACTINIC KERATOSIS, ERODED (L57.0) (see microscopic description) 4:32 PM [facility] DERMATOPATHOLOGY LABORATORY Clinical History R/o NMSC Favor PN. Eroded Papule 4:32 PM [facility] DERMATOPATHOLOGY LABORATORY Gross Description Specimen A: Received is one formalin filled container labeled with the patient's name and designated crown. The specimen consists of a shave biopsy measuring 9x6x1 mm. Jar 0. 4:32 PM [facility] DERMATOPATHOLOGY LABORATORY Microscopic Description Specimen A. SKIN, crown: There is hyperkeratosis alternating with parakeratosis. The epidermis is eroded. There is epidermal hyperplasia with disorderly maturation of keratinocytes with nuclear pleomorphism confined to the lower half of the epidermis. Additional deeper sections were obtained and reviewed. 4:32 PM [facility] DERMATOPATHOLOGY LABORATORY Disclaimer An external and internal positive and negative controls are appropriate for the histochemical, immunohistochemical and immunofluorescence stain(s) in this case (if any), except where stated explicitly. The performance characteristics of the stain(s) cited in this report were developed and its performance characteristic determined by the Dermatopathology Laboratory at [facility], directed by Dr. Shasta Loya. These tests need not be, and therefore are not, approved by the [place] Food and Drug Administration. The tests are used for clinical purposes. Billing Codes Specimen Charges Stain Charges 01547 1 4:32 PM [facility] DERMATOPATHOLOGY LABORATORY Embedded Images 4:32 PM [facility] DERMATOPATHOLOGY LABORATORY Pathology/Cytolo gy TISSUE SPECIMEN FROM SKIN / Unknown 10/04/2023 11:21 AM ART MANAGER 10/05/2023 8:58 AM ART MANAGER Agnes Neri MD LAB - PATHOLOGY/CYTO LOGY ORDERABLES DERMATOPATHOLOGY LABORATORY [facility] - Department of Dermatology [address], [address] [phone] documented in this encounter Visit Diagnoses Not on filedocumented in this encounter Care Teams Regulatory Auditor Relationship Specialty Start Date End Date Wilner Bolaños MD [address] [facility] [address] [place] [address] PCP - General Internal Medicine 03/26/20 [place] [address] [address] Orthopedic Surgery 03/26/20 documented as of this encounter
--- OUTSIDE RECORDS SUMMARY | 2024-12-04 12:39 | XMS_ITS | Continuity of Care Document ---
Author Organization [facility] Address [address] [place] [address] Phone Care Team Providers Care Assistant Film Editor Name Role Phone Srini San Unavailable Unavailable Procedures Procedure Date Special Reports Or Forms Eye Exam & Treatment Refraction Eye Exam & Treatment Refraction Office/outpatient Visit, Est Advance Directives Directive Yes / No Effective Date File Name No Information Encounters Encounter Description Practice Location Reason(s) For Visit Diagnoses Date Provider Providers Copied on Encounter [facility], [address] [place] [address] [address], [place], [place], [id number], tel:[phone] [facility] No Information 0 Mena Milligan. [address], [place], [place], [facility], . tel:[phone] [facility], [address] [place] [address] [address], [place], [place], [address], [place] tel:[phone] [facility] No Information 8[address] Mena Milligan. [address], [place], [place], [facility], . tel:[phone] [facility], [address], [place], [place], [id number], tel:[phone] [facility] No Information [address] Mena Milligan. [address] , [address], [place], [address], [place]. tel:[phone] Referring Provider: Srini Floyd, [address], [place], [address]. tel:[phone] Office/outpat ient Visit, [facility], [address], [place], [place], [address], [place] tel:[phone] [facility] No Information Jacobo-2 [phone] 7 Mena Milligan. [address] [facility] , [address], [place], [address], [place]. tel:[phone] Family History Family Member Type Diagnosis Age At Onset No Information Payers Payer name Insurance type Covered alliance party ID Authoriza tion(s) No Information Social History Type Description Quantity Date Captured Comments Sex Male Smoking Status No Information Chief Complaint And Reason For Visit No Information Reason For Referral Reason For Referral No Information History Of Present Illness Encounter Date Complaint History Of Prese nt Illness No Information Functional Status Date Functional Assessmen t No Information Instructions Date Instruction Additional Infor mation No Information Assessments Type Assessment Date No Information Patient Care Teams Name Effective Dates (start - stop) Status Members No Information
--- OUTSIDE RECORDS SUMMARY | 2024-12-04 12:40 | XMS_ITS | Clinical Summary ---
Author Organization [facility] Address [address] Palacio: Epic Prelude ADT [place] [address] Care Team Providers Care Quality Eng Name Role Phone David Steel MD Primary Care Provider [phone] Allergies No known active allergies Medications clindamycin phosphate (CLEOCIN) 1 % Solution Apply to face daily as directed. 60 mL 11 12/05/2022 11:32 AM CDT 2 Active amoxicillin (AMOXIL) 500 mg capsule Take 4 Capsules (2,000 mg) by mouth 1 hour prior to dental procedure. 4 Capsule 2 Active rivaroxaban (Xarelto) 20 mg Tablet Take 1 Tablet (20 mg) by mouth daily. 30 Tablet 11 08/02/2022 3:48 PM HEALTH DATA ADMINISTRATOR 2 Active clotrimazole-be tamethasone (LOTRISONE) 1-0.05 % Cream APPLY TO BUMPS ON ARMS DIRECTED 45 Gram 3 09/06/2022 11:04 AM HEALTH DATA ADMINISTRATOR 2 Active adalimumab (Humira,CF, Pen Itkyew-PY-TN) 80 mg/0.8 mL Pen Injector Kit Inject the contents of 2 pens under the skin on Day 1; then inject the contents of 1 pen on Day 15 of therapy. 3 Each 3 Active amoxicillin (AMOXIL) 500 mg capsule Take 1 capsule by mouth three times daily until gone. 40 Capsule 10/09/2022 1:11 PM HEALTH DATA ADMINISTRATOR 3 Active amoxicillin (AMOXIL) 500 mg capsule Take 4 capsules by mouth one hour before dental appointment. 12 Capsule 2 10/19/2022 3:37 PM HEALTH DATA ADMINISTRATOR 3 Active benzonatate (TESSALON) 100 mg capsule Take 2 Capsules (200 mg) by mouth 3 times daily as needed for cough. 60 Capsule 3 09/14/2023 11:56 AM HEALTH DATA ADMINISTRATOR 3 Active triamcinolone acetonide (KENALOG) 0.1 % Cream APPLY TO BODY EVERY OTHER DAY DIRECTED 454 Gram 5 01/24/2024 3:41 PM CDT 3 Active tiZANidine (ZANAFLEX) 2 mg Tablet Take 1 tablet (2 mg total) by mouth every 6 (six) hours as needed (back pain) 60 Tablet 3 11/20/2023 3:17 PM HEALTH DATA ADMINISTRATOR 3 Active clotrimazole-be tamethasone (LOTRISONE) 1-0.05 % Cream Apply topically 2 (two) times a day 45 Gram 1 07/27/2023 10:34 AM HEALTH DATA ADMINISTRATOR 3 Active mupirocin (BACTROBAN) 2 % Ointment Apply to scalp twice daily. 22 Gram 3 07/27/2023 10:34 AM HEALTH DATA ADMINISTRATOR 3 Active pimecrolimus (ELIDEL) 1 % Cream Apply to face and body two times daily as directed. 60 Gram 3 10/06/2023 8:53 AM HEALTH DATA ADMINISTRATOR 3 Active amoxicillin (AMOXIL) 875 mg tablet Take 1 Tablet (875 mg) by mouth 2 times daily. 14 Tablet 08/24/2023 9:25 AM HEALTH DATA ADMINISTRATOR 3 Active LORazepam (ATIVAN) 2 mg tablet Bring medication to your appointment. You must arrive one hour prior to your scheduled appointment time. Do not take in advance. 1 Tablet 09/11/2023 2:45 PM HEALTH DATA ADMINISTRATOR 3 Active fluocinolone acetonide oiL (DERMOTIC) 0.01 % Drops Administer 5 Drops in both ears 2 times daily. 20 mL 3 10/29/2023 4:17 PM HEALTH DATA ADMINISTRATOR 4 Active mupirocin (BACTROBAN) 2 % Ointment APPLY TO SCALP TWICE DAILY. 22 Gram 3 12/20/2023 11:00 AM CDT 4 Active Flurandrenolide (Cordran Tape Large Roll) 4 mcg/cm2 Tape Apply to spots, repeat daily 1 Each 5 4 Active cephALEXin (KEFLEX) 500 mg capsule Take 1 capsule by mouth twice daily 60 Capsule 02/12/2024 2:12 PM CDT 4 Active pimecrolimus (ELIDEL) 1 % Cream Apply to the face and trunk twice daily as directed 100 Gram 5 09/12/2024 2:21 PM HEALTH DATA ADMINISTRATOR 4 Active metroNIDAZOLE (METROGEL) 1 % Gel Apply to face twice daily 60 Gram 5 07/03/2024 11:20 AM CDT 4 Active azithromycin (ZITHROMAX) 250 mg tablet Take 2 tabs (500 mg) by mouth today, than 1 tab (250 mg) daily for 4 days. 6 Tablet 03/06/2024 3:14 PM CDT 4 Active fexofenadine-ps eudoephedrine SR 12 hour (JOHNATHON-D) 60-120 mg tablet Take 1 Tablet by mouth 2 times daily. 14 Tablet 1 4 Active doxycycline hyclate (VIBRAMYCIN) 100 mg capsule Take 1 capsule by mouth twice daily for 2 weeks, then take one capsule daily 60 Capsule 3 05/22/2024 12:52 PM CDT 4 Active Clindamycin-Willis zoyl Peroxide (Benzaclin) 1-5 % Gel Apply to the face twice daily 50 Gram 3 07/04/2024 3:14 PM CDT 4 Active doxepin (SINEquan) 10 mg capsule Take 1 Capsule (10 mg) by mouth 2 times daily. 60 Capsule 3 04/29/2024 11:31 AM CDT 4 Active LORazepam (ATIVAN) 2 mg tablet BRING MEDICATION TO APPOINTMENT. ARRIVE 1 HOUR PRIOR TO APPOINTMENT. DO NOT TAKE IN ADVANCE, TAKE IN OFFICE. 1 Tablet 05/20/2024 2:42 PM CDT 4 Active ibuprofen (MOTRIN) 800 mg tablet Take 1 Tablet (800 mg) by mouth every 8 hours UNTIL FINISHED. 12 Tablet 05/22/2024 12:52 PM CDT 4 Active mupirocin (BACTROBAN) 2 % Ointment Apply to folds two times daily for 5 days. Repeat monthly for 3 months. 44 Gram 11 05/26/2024 2:46 PM CDT 4 Active ruxolitinib (Opzelura) 1.5 % Cream Apply 1 Application to arms area 2 times daily. Discard remainder. 60 Gram 3 4 Active azaTHIOprine (IMURAN) 50 mg tablet Take 1 Tablet (50 mg) by mouth daily. 30 Tablet 12 09/30/2024 12:05 PM HEALTH DATA ADMINISTRATOR 4 Active losartan-hydroC HLOROthiazide (HYZAAR) 100-12.5 mg tablet Take 1 tablet by mouth daily. 90 Tablet 3 10/23/2024 11:07 AM HEALTH DATA ADMINISTRATOR 4 Active benzonatate (TESSALON) 100 mg capsule Take 2 capsules (200 mg total) by mouth 3 (three) times a day as needed for cough 60 Capsule 1 09/12/2024 2:21 PM HEALTH DATA ADMINISTRATOR 4 Active triamcinolone acetonide (KENALOG) 0.1 % Cream Apply to rash on arms twice daily 454 Gram 3 11/14/2024 9:59 AM HEALTH DATA ADMINISTRATOR 5 Active amoxicillin (AMOXIL) 500 mg capsule Take 4 tablet/capsule (2,000 mg total) by mouth once for 1 dose prior to dental procedure. Repeat dose as needed/directed by dentist. 12 Capsule 11/20/2024 4:02 PM HEALTH DATA ADMINISTRATOR 5 Active upadacitinib (Rinvoq) 15 mg Tablet Sustained Release 24HR Take 15 mg by mouth daily. 30 Tablet 11 5 Active Encounters Date Type Department Care Team Description 12/03/2024 External Device Data [facility] ABSTRACTION Provider, Abstract 12/03/2024 External Device Data [facility] ABSTRACTION Provider, Abstract 11/24/2024 External Device Data [facility] ABSTRACTION Provider, Abstract 11/22/2024 External Device Data [facility] ABSTRACTION Provider, Abstract 11/21/2024 External Device Data [facility] ABSTRACTION Provider, Abstract 11/19/2024 External Device Data [facility] ABSTRACTION Provider, Abstract 10/14/2024 External Device Data [facility] ABSTRACTION Provider, Abstract from Last 3 Months Immunizations Immunization Administration Dates Next Due (COMIRNATY)(12 YR UP) COVID- 19 VACCINE, MRNA, SPIKE PROTEIN, LNP, ASHWIN(PF) 30 MCG/0.3 ML IM SUSP 06/28/2023 INFLUENZA VACCINE HIGH DOSE QUADRIVALENT 65 YR UP PF IM 06/26/2023,06/08/2022 Social History Tobacco Use Types Packs/Day Years Used Date Smoking Tobacco: Never Assessed Sex and Gender Information Value Date Recorded Sex Assigned at Not on file Legal Sex Male 3:47 AM HEALTH DATA ADMINISTRATOR Gender Identity Not on file Sexual Orientation Not on file Plan of Treatment Health Maintenance Due Date Last Done Comments DTAP/TDAP/TD VACCINES (1 - Tdap) 1968 COLORECTAL SCREENING 1994 FIT-DNA Q 3 years 1994 Flex Sig/CT Colonography Q 5 years 1994 PNEUMOCOCCAL VACCINE 50+ YEA RS (1 of 1 - PCV) 12/17/1999 ZOSTER VACCINE (1 of 2) 12/17/1999 Colorectal Cancer Screening 06/06/2001 FIT/FOBT Q 1 year 06/06/2001 06/06/2000 INFLUENZA VACCINE (#1) 2024 06/26/2023, 2021 COVID-19 Vaccine (2 - season) 05/18/202408/2023 Preventative Visit- Commercial 09/17/2024 RSV VACCINE (60+ or ) (1 - 1-dose 75+ series) 2024 Insurance RX [employer] (INTERNAL) [facility] [employer] RX [employer] RX Member Subscriber Plan / Payer (Ef fective for All Dates) Name:Alonzo Montana Relation to Subscriber:Self Name:Alonzo Montana Payer ID:Not on file Group ID:[id number] Type:RX Medicare Part D Address: [place] Care Teams Quality Eng Relationship Specialty Start Date End Date David Steel MD [address] [facility] [address] [address] PCP - General 11/19/00
--- OUTSIDE RECORDS SUMMARY | 2024-12-04 12:40 | XMS_ITS | Encounter Summary ---
Author Organization [employer] Address [address] [place] [address] Care Team Providers Care Buttoner Name Role Phone David Steel MD Primary Care Provider [phone] Encounter Details Date Type Department Care Team (Late st Contact Info) Description 12/03/2024 External Device Data [facility] ABSTRACTION Provider, Abstract NO ADDRESS ON FILE Social History Tobacco Use Types Packs/Day Years Used Date Smoking Tobacco: Never Assessed Sex and Gender Information Value Date Recorded Sex Assigned at Not on file Legal Sex Male 3:47 AM VISUAL STYLIST Gender Identity Not on file Sexual Orientation Not on file documented as of this encounter Plan of Treatment Not on file documented as of this encounter Visit Diagnoses Not on filedocumented in this encounter Care Teams Buttoner Relationship Specialty Start Date End Date David Steel MD [address] [facility] [address] [address] PCP - General 11/19/00 documented as of this encounter
--- OUTSIDE RECORDS SUMMARY | 2024-12-04 12:40 | XMS_ITS | Encounter Summary ---
Author Organization [employer] Address [address] [place] [address] Care Team Providers Care Business Systems Architect Name Role Phone David Steel MD Primary Care Provider [phone] Encounter Details Date Type Department Care Team (Late st Contact Info) Description 12/03/2024 External Device Data [facility] ABSTRACTION Provider, Abstract NO ADDRESS ON FILE Social History Tobacco Use Types Packs/Day Years Used Date Smoking Tobacco: Never Assessed Sex and Gender Information Value Date Recorded Sex Assigned at Not on file Legal Sex Male 3:47 AM SOUND PERSON Gender Identity Not on file Sexual Orientation Not on file documented as of this encounter Plan of Treatment Not on file documented as of this encounter Visit Diagnoses Not on filedocumented in this encounter Care Teams Business Systems Architect Relationship Specialty Start Date End Date David Steel MD [address] [facility] [address] [place] [address] PCP - General 11/19/00 documented as of this encounter
[2024-12-04 13:11] LABS: Alanine Aminotransferase 15 U/L (6-50); Albumin Level 4.3 g/dL (3.5-5.1); Alkaline Phosphatase 60 U/L (38-126); Anion Gap 8 mmol/L (4-12); Aspartate Amino Transferase 19 U/L (17-59); Bilirubin,Total 0.9 mg/dL (0.2-1.3); Blood Urea Nitrogen 27 mg/dL (9-20); CRP 0.7 mg/dL (<1.0); Calcium 9.4 mg/dL (8.4-10.2); Carbon Dioxide 28 mmol/L (22-30); Chloride 100 mmol/L (98-107); Estimated Glomerular Filt Rate 44; Glucose 116 mg/dL (65-110); Potassium 4.1 mmol/L (3.4-5.0); Sodium 136 mmol/L (137-145)
[2024-12-04 16:12] LABS: Erythrocyte Sedimentation Rate 28 mm/hr (0-20)
== END 2024-12-04 11:52 | disposition home or self-care (01) ==
LOC: ANHLAB 11:54
PROVIDERS: PCP Internal Medicine; Visit Provider Internal Medicine Gastroenterology
DX: K51.90 Ulcerative colitis, unspecified, without complications (principal); D50.9 Iron deficiency anemia, unspecified
CPT/HCPCS: 36415; 80053; 85027; 85652; 86140

== ENCOUNTER 2024-12-05 10:44 | Outpatient (CLI) | payer MEDICARE, SELFPAY ==
--- OUTSIDE RECORDS SUMMARY | 2024-12-05 11:55 | XMS_ITS | Continuity of Care Document ---
Author Organization [facility] Address [address] [place] [address] Phone Care Team Providers Care Life Teacher Name Role Phone Srini San Unavailable Unavailable Procedures Procedure Date Special Reports Or Forms Eye Exam & Treatment Refraction Eye Exam & Treatment Refraction Office/outpatient Visit, Est Advance Directives Directive Yes / No Effective Date File Name No Information Encounters Encounter Description Practice Location Reason(s) For Visit Diagnoses Date Provider Providers Copied on Encounter [facility], [address] [place] [address] [address], [place], [place], [id number], tel:[phone] [facility] No Information 0 Mena Milligan. [address], [place], [place], [facility], . tel:[phone] [facility], [address] [place] [address] [address], [place], [place], [id number], [place] tel:[phone] [facility] No Information 8[address] Mena Milligan. [address], [place], [place], [facility], . tel:[phone] [facility], [address], [place], [place], [id number], tel:[phone] [facility] No Information [address] Mena Milligan. [address] , [address], [place], [address], [place]. tel:[phone] Referring Provider: Srini Floyd, [address], [place], [address]. tel:[phone] Office/outpat ient Visit, [facility] Eye [facility], [address], [place], [place], [id number], [place] tel:[phone] [facility] No Information Jacobo-2 0-200 7 Mena Milligan. [address] , [address], [place], [address], [place]. tel:[phone] Family History Family Member Type Diagnosis Age At Onset No Information Payers Payer name Insurance type Covered green party ID Authoriza tion(s) No Information Social [...]
--- OUTSIDE RECORDS SUMMARY | 2024-12-05 11:55 | XMS_ITS | Encounter Summary ---
Author Organization [facility] Address [address] [place] [address] Care Team Providers Care Frame Coverer Name Role Phone Wilner Bolaños MD Primary Care Provider Sangeetha Parra PTA Unavailable Unavailable Felicia Sales IN FLIGHT REFUELING CRAFTSMAN Unavailable [phone] Reason for Visit * Reason Onset Date Comments Referral Request 12/03/2024 Encounter Details Date Type Department Care Team (Late st Contact Info) Description 12/03/2024 Telephone [facility] Primary Care at [address] [place] [address] Wilner Bolaños MD [address] [place] [address] Referral Request Social History Tobacco Use [...] on file 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 Yes Additional Comments: please make outreach to patient via phone or my chart message when referral isplaced. Does message need to be routed? Yes-Action Needed documented in this encounter Plan of Treatment Not on file documented as of this encounter Visit Diagnoses Not on filedocumented in this encounter Care Teams Frame Coverer Relationship Specialty Start Date End Date Wilner Bolaños MD PCP - General 12/15/16 Sangeetha Parra, NUT FEEDER Journalists And Other Writers Physical Therapy 06/03/18 Felicia Sales NP Nurse Practitioner Nurse Practitioner 03/03/19 documented as of this encounter
--- OUTSIDE RECORDS SUMMARY | 2024-12-05 11:55 | XMS_ITS | Encounter Summary ---
Author Organization [facility] Address [address] [place] [address] Phone Care Team Providers Care Front Facer Name Role Phone Wilner Bolaños MD Primary Care Provider Sangeetha Parra PTA Unavailable Unavailable Felicia Sales CRIPPLE WORKER Unavailable [phone] Stacey Christie RN Unavailable [phone] Reba Rosas RN Unavailable [phone] Encounter Details Date Type Department Care Team (Late st Contact Info) Description 01/03/2018 Orders Only [facility] ProviderJian MD [address] [place] [address] Social History Tobacco Use Types Packs/Day Years Used Date Smoking Tobacco: Former Smokeless Tobacco: Never Alcohol Use Standard Drinks/Week Comments No 0 (1 standard drink = 0.6 oz pur e alcohol) Sex and Gender Information Value Date Recorded Sex Assigned at Not on file 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 Gender Identity Not on file Sexual Orientation [...] on filedocumented in this encounter Care Teams Front Facer Relationship Specialty Start Date End Date Wilner Bolaños MD PCP - General 12/15/16 Sangeetha Parra, PAD MACHINE OPERATOR Template Reproduction Technician Physical Therapy 06/03/18 Felicia Sales, TIFFANY Nurse Practitioner Nurse Practitioner 03/03/19 Stacey Christie RN [address] [place] [address] Appraiser 03/05/19 04/15/19 Reba Rosas RN [address] [place] [address] Appraiser 02/26/20 04/19/20 documented as of this encounter
--- OUTSIDE RECORDS SUMMARY | 2024-12-05 11:55 | XMS_ITS | Encounter Summary ---
Author Organization [facility] Address [address] [place] [address] Care Team Providers Care Accountant Auditor Name Role Phone David Steel MD Primary Care Provider [phone] Encounter Details Date Type Department Care Team (Late st Contact Info) Description 01/24/[address] 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
--- OUTSIDE RECORDS SUMMARY | 2024-12-05 11:55 | XMS_ITS | Encounter Summary ---
Author Organization [facility] Address 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
--- OUTSIDE RECORDS SUMMARY | 2024-12-05 11:55 | XMS_ITS | Encounter Summary ---
Author Organization [employer] Address [address] [place] [address] Care Team Providers Care Product Design Manager Name Role Phone David Steel MD Primary Care Provider [phone] Encounter Details Date Type Department Care Team (Late st Contact Info) Description 11/25/2003 Outpatient Historical [facility] Support Serv. (Adt Cardiology[facility]) [address] 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
--- OUTSIDE RECORDS SUMMARY | 2024-12-05 11:55 | XMS_ITS | Encounter Summary ---
Author Organization [facility] Address 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
--- OUTSIDE RECORDS SUMMARY | 2024-12-05 11:55 | XMS_ITS | Clinical Summary ---
Author Organization [facility] Address [address] [place]: Epic Prelude ADT [place] [address] Care Team Providers Care Emissions Repair Technician Name Role Phone David Steel MD Primary Care Provider [phone] Allergies No known active allergies Medications clindamycin [...] daily. 30 Tablet 11 08/02/2022 3:48 PM SECURITY TEST ENGINEER 2 Active clotrimazole-be tamethasone (LOTRISONE) 1-0.05 % Cream APPLY TO BUMPS ON ARMS DIRECTED 45 Gram 3 09/06/2022 11:04 AM SECURITY TEST ENGINEER 2 Active adalimumab (Humira,CF, Pen Gfudid-JX-CG) 80 mg/0.8 mL Pen Injector Kit Inject the contents of 2 pens under the skin on Day 1; then inject the contents of 1 pen on Day 15 of therapy. 3 Each 3 Active amoxicillin (AMOXIL) 500 mg capsule Take 1 capsule by mouth three times daily until gone. 40 Capsule 10/09/2022 1:11 PM SECURITY TEST ENGINEER 3 Active amoxicillin (AMOXIL) 500 mg capsule Take 4 capsules by mouth one hour before dental appointment. 12 Capsule 2 10/19/2022 3:37 PM SECURITY TEST ENGINEER 3 Active benzonatate (TESSALON) 100 mg capsule Take 2 Capsules (200 mg) by mouth 3 times daily as needed for cough. 60 Capsule 3 09/14/2023 11:56 AM SECURITY TEST ENGINEER 3 Active triamcinolone acetonide (KENALOG) 0.1 % Cream APPLY TO BODY EVERY OTHER DAY DIRECTED 454 Gram 5 01/24/2024 3:41 PM CDT 3 Active tiZANidine (ZANAFLEX) 2 mg Tablet Take 1 tablet (2 mg total) by mouth every 6 (six) hours as needed (back pain) 60 Tablet 3 11/20/2023 3:17 PM SECURITY TEST ENGINEER 3 Active clotrimazole-be tamethasone (LOTRISONE) 1-0.05 % Cream Apply topically 2 (two) times a day 45 Gram 1 07/27/2023 10:34 AM SECURITY TEST ENGINEER 3 Active mupirocin (BACTROBAN) 2 % Ointment Apply to scalp twice daily. 22 Gram 3 07/27/2023 10:34 AM SECURITY TEST ENGINEER 3 Active pimecrolimus (ELIDEL) 1 % Cream Apply to face and body two times daily as directed. 60 Gram 3 10/06/2023 8:53 AM SECURITY TEST ENGINEER 3 Active amoxicillin (AMOXIL) 875 mg tablet Take 1 Tablet (875 mg) by mouth 2 times daily. 14 Tablet 08/24/2023 9:25 AM SECURITY TEST ENGINEER 3 Active LORazepam (ATIVAN) 2 mg tablet Bring medication to your appointment. You must arrive one hour prior to your scheduled appointment time. Do not take in advance. 1 Tablet 09/11/2023 2:45 PM SECURITY TEST ENGINEER 3 Active fluocinolone acetonide oiL (DERMOTIC) 0.01 % Drops Administer 5 Drops in both ears 2 times daily. 20 mL 3 10/29/2023 4:17 PM SECURITY TEST ENGINEER 4 Active mupirocin (BACTROBAN) 2 % Ointment [...] directed 100 Gram 5 09/12/2024 2:21 PM SECURITY TEST ENGINEER 4 Active metroNIDAZOLE (METROGEL) 1 % Gel [...] daily. 30 Tablet 12 09/30/2024 12:05 PM SECURITY TEST ENGINEER 4 Active losartan-hydroC HLOROthiazide (HYZAAR) 100-12.5 mg tablet Take 1 tablet by mouth daily. 90 Tablet 3 10/23/2024 11:07 AM SECURITY TEST ENGINEER 4 Active benzonatate (TESSALON) 100 mg capsule Take 2 capsules (200 mg total) by mouth 3 (three) times a day as needed for cough 60 Capsule 1 09/12/2024 2:21 PM SECURITY TEST ENGINEER 4 Active triamcinolone acetonide (KENALOG) 0.1 % Cream Apply to rash on arms twice daily 454 Gram 3 11/14/2024 9:59 AM SECURITY TEST ENGINEER 5 Active amoxicillin (AMOXIL) 500 mg capsule Take 4 tablet/capsule (2,000 mg total) by mouth once for 1 dose prior to dental procedure. Repeat dose as needed/directed by dentist. 12 Capsule 11/20/2024 4:02 PM SECURITY TEST ENGINEER 5 Active upadacitinib (Rinvoq) 15 mg Tablet [...] on file Legal Sex Male 3:47 AM SECURITY TEST ENGINEER Gender Identity Not on file Sexual Orientation [...] Group ID:COS Type:RX Medicare Part D Address: [place] Care Teams Emissions Repair Technician Relationship Specialty Start Date End Date David Steel MD [address] [facility] [address] [address] PCP - General 11/19/00
--- OUTSIDE RECORDS SUMMARY | 2024-12-05 11:55 | XMS_ITS | Encounter Summary ---
Author Organization [employer] Address [address] [place] [address] Care Team Providers Care Trailer Chief Name Role Phone David Steel MD Primary Care Provider [phone] Encounter Details Date Type Department Care Team (Latest Contact Info) Description 11/19/2000 Inpatient Historical HIS PATIENT IN A BED Lorelie Ruiz William F, MD [address] [facility] [address] [place] [address] Other and unspecified noninfectious gastroenteritis and colitis(558.9) (Primary Dx) Social History Tobacco Use Types Packs/Day Years Used Date Smoking Tobacco: Never Assessed Sex and Gender Information Value Date Recorded Sex Assigned at Not on file Legal Sex Male 3:47 AM DERRICKMAN HELPER Gender Identity Not on file Sexual Orientation Not on file documented as of this encounter Plan of Treatment Not on file documented as of this encounter Visit Diagnoses Diagnosis Other and unspecified noninfectious gastroenteritis and colitis(558.9)- Primary Other and unspecified noninfectious gastroenteritis and colitis documented in this encounter Care Teams Trailer Chief Relationship Specialty Start Date End Date David Steel MD [address] [facility] [address] [address] PCP - General 11/19/00 documented as of this encounter
--- OUTSIDE RECORDS SUMMARY | 2024-12-05 11:55 | XMS_ITS | Encounter Summary ---
Author Organization [facility] Address 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
--- OUTSIDE RECORDS SUMMARY | 2024-12-05 11:55 | XMS_ITS | Encounter Summary ---
Author Organization [facility] Address [address] [place] [address] Care Team Providers Care Aesthetician Name Role Phone David Steel MD Primary Care Provider [phone] Encounter Details Date Type Department Care Team (Late st Contact Info) Description 06/06/[address] 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
--- OUTSIDE RECORDS SUMMARY | 2024-12-05 11:55 | XMS_ITS | Clinical Summary ---
Author Organization [facility] Address [address] [facility] [place] [address] Care Team Providers Care Applications Specialist Name Role Phone Wilner Bolaños MD Primary Care Provider David Gill MD Unavailable [phone] Source Comments [facility],non-owned Affiliates and Associated Physician Practices is amultiple site organization consisting of ambulatory clinics and hospital sitesin [place], [place], [place] and [place]. This disclosure is being madepursuant to the Care Everywhere program and may not contain all information available regarding this patient. Last updated 18.[facility] Allergies Active Allergy Reactions Criticality Noted Date [...] extraction of BL eyes as directed by security escort and desired by Pt. Preoperative clearance provided [...] follow-up and medications as previously directed by secretary specialist. Social History Tobacco Use Types Packs/Day [...] Documents on File Type Date Recorded Patient Spiral Binder Expl anation Adv Directive/Living Will/POA 05/19/2020 6:52 PM Care Teams Applications Specialist Relationship Specialty Start Date End Date Wilner Bolaños MD [address] [facility] [address] [place] [address] PCP - General Internal Medicine 03/26/20 [place] [address] [place] [address] Orthopedic Surgery 03/26/20
--- OUTSIDE RECORDS SUMMARY | 2024-12-05 11:55 | XMS_ITS | Clinical Summary ---
Author Organization [facility] Address [address] [place] [id number] Care Team Providers Care Sub Master Name Role Phone Wilner Bolaños MD Primary Care Provider Sangeetha Parra CHAIN TESTING MACHINE OPERATOR Unavailable Unavailable Felicia Sales STUDY MANAGER Unavailable [phone] Allergies Active Allergy Reactions Criticality Noted Date [...] Units total) by mouth daily Active vitamins A,C,E-zinc-asbestos microscopist per 7,160-113-100 ipff-tf-lgve tablet,delayed release (DR/EC) Take by mouth daily [...] face daily as directed. 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 Cont with metoprolol and eliquis for anticoagulation pending upcoming visit with insurance sales producer. 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 Will Cnt. To monitor with upcoming PSA labs in 3 months as scheduled Assessment & Plan (11/23/2017 11:59 AM SPECIAL FORCES OFFICER): Urology consultation recommended. Patient had been referred [...] 02/26/2017 Assessment & Plan (11/07/2019 12:55 PM SPECIAL FORCES OFFICER): Will change hydralazine and clonidine to Losartan. Pt to call me with blood pressure results in 1 week. May consider adding Amlodipine if blood pressure is not well controlled Assessment & Plan (10/23/2019 8:48 AM SPECIAL FORCES OFFICER): Normotensive in clinic. Cnt. Prior prescribed antihypertensives, dash/heart healthy diet and F/U insurance sales producer scheduled Assessment & Plan (08/18/2019 4:15 PM SPECIAL FORCES OFFICER): BP slightly elevated in office today. Cont. [...] monitor. Assessment & Plan (11/23/2017 12:03 PM SPECIAL FORCES OFFICER): Blood pressure elevated today. Patient did have [...] Severe obstructive sleep apnea 01/31/2014 Overview (12/20/2016): [facility] SLEEP [facility] Assessment & Plan (11/07/2019 12:56 PM SPECIAL FORCES OFFICER): Pt is compliant with CPAP Assessment & Plan (10/23/2019 8:47 AM SPECIAL FORCES OFFICER): Stable on current CPAP settings Assessment & [...] REFLUX Assessment & Plan (10/23/2019 8:47 AM SPECIAL FORCES OFFICER): Cnt. Pepcid and dietary modifications as prior advised. Ulcerative colitis 01/31/2014 Overview (12/21/2016): ULCERATVE COLITIS UNSPCF Assessment & Plan (03/01/2019 12:03 AM CDT): Continue sulfasalazine Assessment & Plan (08/21/2017 2:56 PM SPECIAL FORCES OFFICER): Daily blood with 4 bms/day and much [...] Nasal saline spray (Simply saline, [employer] Remedies, [place], [place]) 2 second sprays or 2 squeezes into [...] 12/17/2020 Assessment & Plan (10/23/2019 8:46 AM SPECIAL FORCES OFFICER): Pt was advised to continue current therapy [...] 12/17/2020 Assessment & Plan (10/23/2019 8:49 AM SPECIAL FORCES OFFICER): Pt wishes to proceed forward with cataract extraction of BL eyes as directed by client administrator and desired by Pt. Preoperative clearance provided [...] (05/28/2018): Added automatically from request for surgery [id number] Urinary retention 11/23/2017 03/14/2018 Assessment & Plan (11/23/2017 12:07 PM SPECIAL FORCES OFFICER): Postvoid bladder scan revealing 129 mL of [...] 01/17/2018 Assessment & Plan (11/23/2017 11:59 AM SPECIAL FORCES OFFICER): Urology consultation recommended. Patient had been referred [...] 12/17/2020 Assessment & Plan (11/23/2017 12:04 PM SPECIAL FORCES OFFICER): Patient is followed by Psychiatry. He will continue routine follow-up and medications as previously directed by multimedia educational specialist. Acute prostatitis 11/23/2017 01/17/2018 Assessment & Plan (11/23/2017 11:58 AM SPECIAL FORCES OFFICER): Urine sample will be submitted for urinalysis with reflex to microscopy and culture. Patient has previously had a poor response to Bactrim for prostatitis. Therefore, we are going to begin treatment with Cipro which she has previously tolerated well with a satisfactory response. Skin lesion of back 02/26/2017 04/14/20 Assessment & Plan (02/26/2017 8:51 AM CDT): Referral arranged to local beauty operator, Dr. Lucía Trujillo for 2nd opinion per patient request. Nasal obstruction 07/02/2015 04/14/2020 Overview (12/21/2016): Refractory obstruction of nasal airway Biliary sludge 12/22/2013 12/17/2020 Overview (12/21/2016): Gallbladder sludge Encounters Date Type Department Care Team Description 12/04/[address] [facility] Health Information Management [address] [place] [id number] Wilner Bolaños MD 12/03/2024 Telephone [facility] Primary Care at [address] [phone] Wilner Bolaños MD Referral Request 11/13/2024 10:30 AM SPECIAL FORCES OFFICER Office Visit [facility] Primary Care at [address] [phone] Wilner Bolaños MD Essential hypertension (Primary Dx); BMI 36.0-36.9,adult; Benign prostatic hyperplasia with urinary retention; CKD stage G3a/A1, GFR 45-59 and albumin creatinine ratio <30 mg/g (HCC); Gastroesophageal reflux disease without esophagitis; H/O unilateral nephrectomy; Arthritis of left knee; Severe obstructive sleep apnea; Ulcerative pancolitis without complication (HCC); Paroxysmal atrial fibrillation (HCC); Severe obesity (HCC); Urine frequency; Mixed hyperlipidemia 11/10/2024 Orders Only [facility] Primary Care at [address] [phone] Wilner Bolaños MD Skin lesion (Primary Dx) 10/28/2024 9:15 AM SPECIAL FORCES OFFICER Lab [facility] Outpatient Lab at [address] [phone] Essential hypertension (Primary Dx) 10/28/2024 9:11 AM SPECIAL FORCES OFFICER - 10/28/2024 11:59 PM SPECIAL FORCES OFFICER Hospital Encounter [address] [address] CKD stage G3a/A1, GFR 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 and albumin creatinine ratio <30 mg/g (HCC); Essential hypertension Discharge Disposition: Discharge to home or self care 10/21/2024 Telephone [facility] Primary Care at [address] [phone] Wilner Bolaños MD Referral Request 10/07/2024 Telephone [facility] Primary Care at [address] [phone] Wilner Bolaños MD Referral Request 10/01/2024 8:40 AM SPECIAL FORCES OFFICER - 10/01/2024 11:59 PM SPECIAL FORCES OFFICER Hospital Encounter [address] [address] [place] [employer] Machine Operator's nodule Discharge Disposition: Discharge to home or self care 10/01/2024 8:15 AM SPECIAL FORCES OFFICER Lab [facility] Outpatient Lab at [address] [phone] [employer] Machine Operator's nodule (Primary Dx); Essential hypertension 09/30/2024 ACO Quality [facility] Accountable Care Organization [address] [place] [id number] Pushpa Kimball MA 09/26/2024 Telephone [facility] Primary Care at [address] [phone] Wilner Bolaños MD Medical Question/Miscellaneous 09/26/2024 Telephone [facility] Primary Care at [address] [phone] Wilner Bolaños MD 09/15/2024 Orders Only [facility] Primary Care at [address] [phone] Wilner Bolaños MD 09/12/2024 Telephone [facility] Primary Care at [address] [phone] Sheridan Smith MA 09/12/2024 Orders Only [facility] Primary Care at [address] [phone] Sheridan Smith MA 09/12/2024 Orders Only [facility] Primary Care at [address] [phone] Wilner Bolaños MD 09/09/2024 Orders Only [facility] Primary Care at [address] [phone] Wilner Bolaños MD from Last 3 Months [...] Medical History Date Comments Hx Other Medical 2006 cxr Hx Other Medical 2007 bone density Asbestosis (HCC) 1999 asbestosis Hx Other Medical 1999 colitis Hx Other Medical 2006 metal plate/scr ews left wrist Hx Other Medical ENT Asbestosis (HCC) asbestosis Sleep apnea Sleep apnea Hx Other Medical bumps removed f rom skin; Comments: In December of 2015 Ulcerative colitis (HCC) Chronic kidney disease left neph rectomy 1958, enlarged at [facility] (postoperative nausea and vomiting) [...] on file Legal Sex Male 6:05 PM SPECIAL FORCES OFFICER Gender Identity Not on file Sexual Orientation Not on file Obstetrics History Last Filed Vital Signs Vital Sign Reading Time Taken Comments Blood Pressure 132/62 11/13/2024 9:59 AM SPECIAL FORCES OFFICER Pulse 84 11/13/2024 9:59 AM SPECIAL FORCES OFFICER Temperature 36.4 C (97.5 F) 11/13/2024 9:59 AM SPECIAL FORCES OFFICER Respiratory Rate 16 11/13/2024 9:59 AM SPECIAL FORCES OFFICER Oxygen Saturation 98% 11/13/2024 9:59 AM SPECIAL FORCES OFFICER Inhaled Oxygen Concentration - - Weight 116.6 kg (257 lb) 11/13/2024 9:59 AM SPECIAL FORCES OFFICER Height 177.8 cm (5' 10 ) 11/13/2024 9:59 AM SPECIAL FORCES OFFICER Body Mass Index 36.88 11/13/2024 9:59 AM SPECIAL FORCES OFFICER Plan of Treatment Health Maintenance Due Date Last Done Comments Hepatitis B Screening 12/17/1967 DTaP/Tdap/Td Vaccine (2 - Td or Tdap) 11/19/2018 11/19/2008 Covid-19 Vaccine (2023-2 5 season) 2024 01/14/2022, 05/18/2021, 11/30/2020, Additional [...] history exists Medical Devices Implanted Type Area Domestic Freight Forwarder Device Identifier Shelf Expiration Date Model / Serial / Lot [employer] [id number] Smartset High Viscosity Cement 40gm Bone Gentamicin - [id number] Implanted:Qty: 1 on 06/12/2018 by Wilner Valenzuela MD at [facility] Right: Knee [employer] 06/16/2019 [id number] / / [id number] [employer] [id number] Smartset High Viscosity Cement 40gm Bone Gentamicin - [id number] Implanted:Qty: 1 on 06/12/2018 by Wilner Valenzuela MD at [facility] Right: Knee [employer] 06/16/2019 [id number] / / [id number] [employer] [id number] Attune Cemented Posterior Stabilize Knee Right 6 Component - [id number] Implanted:Qty: 1 on 06/12/2018 by Wilner Valenzuela MD at [facility] Right: Knee [employer] 12/15/2027 [id number] / / [id number] [employer] [id number] Attune S+ Cement Fix Bearing Knee 7 Baseplate Tibial - [id number] Implanted:Qty: 1 on 06/12/2018 by Wilner Valenzuela MD at [facility] Right: Knee [employer] 10/17/2027 [id number] / / [id number] [employer] [id number] Attune 5mm Posterior Stabilize Fix Bearing Knee 6 Insert Tibial - [id number] Implanted:Qty: 1 on 06/12/2018 by Wilner Valenzuela MD at [facility] Right: Knee [employer] 01/14/2023 [id number] / / [id number] Procedures Procedure Name Priority Date/Time Associated Diagnosis Comments SCAN - LABS 12/04/2024 EGFR Routine 10/28/2024 9:11 AM SPECIAL FORCES OFFICER CKD stage G3a/A1, GFR 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 and albumin creatinine ratio <30 mg/g (HCC) Essential hypertension LIPID PANEL Routine 10/28/2024 9:11 AM SPECIAL FORCES OFFICER Essential hypertension COMPREHENSIVE METABOLIC PANEL Routine 10/28/2024 9:11 AM SPECIAL FORCES OFFICER CKD stage G3a/A1, GFR 45-59 and albumin creatinine ratio <30 mg/g (HCC) Essential hypertension EGFR Routine 10/01/2024 8:40 AM SPECIAL FORCES OFFICER [employer] Machine Operator's nodule DIFFERENTIAL AUTO Routine 10/01/2024 8:4 0 AM SPECIAL FORCES OFFICER [employer] Machine Operator's nodule COMPREHENSIVE METABOLIC PANEL Routine 10/01/2024 8:40 AM SPECIAL FORCES OFFICER [employer] Machine Operator's nodule CBC WITH AUTO DIFFERENTIAL Routine 10/01/2024 8:40 AM SPECIAL FORCES OFFICER [employer] Machine Operator's nodule IRON PROFILE W/ IBC Routine 10/01/2024 8 :40 AM SPECIAL FORCES OFFICER [employer] Machine Operator's nodule VITAMIN B12 Routine 10/01/2024 8:40 AM SPECIAL FORCES OFFICER [employer] Machine Operator's nodule FOLATE Routine 10/01/2024 8:40 AM SPECIAL FORCES OFFICER [employer] Machine Operator's nodule CENTROMERE ANTIBODY, IGG Routine 10/01/2024 8:40 AM SPECIAL FORCES OFFICER [employer] Machine Operator's nodule FERRITIN Routine 10/01/2024 8:40 AM SPECIAL FORCES OFFICER [employer] Machine Operator's nodule PSA SCREEN Routine 04/28/2024 8:20 AM CDT Urine frequency COLONOSCOPY Routine 05/25/2023 CT ABDOMEN PELVIS WO CONTRAST Schedule FAUSTINO, Read FAUSTINO (Appt Today, Awaiting Results) 05/05/2021 2:53 PM CDT Abdominal pain Diarrhea, unspecified type Hx of ulcerative colitis HEPATITIS C ANTIBODY Routine 12/21/2016 from Last 3 Months or Most Recently Relevant to Health Maintenance Results * SCAN - LABS (12/04/2024) us Wilner Bolaños MD Edited Result - Final * (ABNORMAL) eGFR (10/28/2024 9:11 AM SPECIAL FORCES OFFICER) eGFR 50(L) >=60 mL/min/1. 73 m2 Comment: [...] last reviewed 2021. Blood 10/28/2024 9:11 AM SPECIAL FORCES OFFICER 10/28/2024 3:53 PM SPECIAL FORCES OFFICER us Wilner Bolaños MD LAB BLOOD ORDERABLES Fi nal Result CHARLY MACIAS [address] [address] [place] [address] * (ABNORMAL) Lipid panel (10/28/2024 9:11 AM SPECIAL FORCES OFFICER) Cholesterol 156 30 - 199 mg/dL Comment: [...] 3. Pasquale Rogers et al. TELLO Cardiol. 2019January 15;5(5):540-548. doi: 10.1001/jamacardio.2020.0013 Current Interpretive Data was [...] revised on 2018. Chol/HDL ratio 4 CHARLY Blood 10/28/2024 9:11 AM SPECIAL FORCES OFFICER 10/28/2024 3:28 PM SPECIAL FORCES OFFICER Narrative [facility] - 10/28/2024 4:33 PM SPECIAL FORCES OFFICER Has the patient been fasting for 8 hours or more?->Yes us Wilner Bolaños MD LAB [place]LOOD [place] [address] [address] [place] [address] * (ABNORMAL) Comprehensive metabolic panel (10/28/2024 9:11 AM SPECIAL FORCES OFFICER) Pathologist [facility] Sodium 138 135 - 145 mmol/L Potassium, [...] Units/L [facility] Blood 10/28/2024 9:11 AM SPECIAL FORCES OFFICER 10/28/2024 3:28 PM SPECIAL FORCES OFFICER Narrative [facility] - 10/28/2024 4:33 PM SPECIAL FORCES OFFICER Has the patient fasted?->Yes Wilner Bolaños MD LAB BLOOD ORDERABLES Fi nal Result Performing Organization Address [facility] Co de Phone Number CHARLY [phone] [address] Department of Laboratories [place], [place] [id number] * (ABNORMAL) eGFR (10/01/2024 8:40 AM SPECIAL FORCES OFFICER) Pathologist [facility] eGFR 50(L) >=60 mL/min/1. 73 m2 Comment: [...] last reviewed 2021. Blood 10/01/2024 8:40 AM SPECIAL FORCES OFFICER 10/01/2024 5:36 PM SPECIAL FORCES OFFICER Agnes Amaral MD LAB BLOOD ORDERABLES Radha l Result Performing Organization Address City/[facility]/ZIP Co de Phone Number CHARLY MACIAS [address] [address] [place] [address] * Differential, auto (10/01/2024 8:40 AM SPECIAL FORCES OFFICER) Pathologist [facility] Neutrophil abs 3.3 1.5 - 6.5 K/cumm Imm gran abs 0.0 0.0 - 0.1 K/cumm [facility] Lymphocyte abs 1.8 0.8 - 3.3 K/cumm [facility] Monocyte abs 0.7 0.2 - 0.8 K/cumm [facility] Eosinophil abs 0.1 0.0 - 0.5 K/cumm [facility] Basophil abs 0.1 0.0 - 0.1 K/cumm [facility] Neutrophil pct 55.4 % [facility] Comment: Interpretive Data Percent cell count reference ranges are not reported, since discordance with absolute values may lead to misinterpretation of CBC data. Current Interpretive Data was last revised on 2017. Imm gran pct 0.3 % [facility] Comment: Interpretive Data Percent cell count reference ranges are not reported, since discordance with absolute values may lead to misinterpretation of CBC data. Current Interpretive Data was last revised on 2017. Lymphocyte pct 30.4 % [facility] Comment: Interpretive Data Percent cell count reference ranges are not reported, since discordance with absolute values may lead to misinterpretation of CBC data. Current Interpretive Data was last revised on 2017. Monocyte pct 11.1 % [facility] Comment: Interpretive Data Percent cell count reference ranges are not reported, since discordance with absolute values may lead to misinterpretation of CBC data. Current Interpretive Data was last revised on 2017. Eosinophil pct 2.0 % [facility] Comment: Interpretive Data Percent cell count reference ranges are not reported, since discordance with absolute values may lead to misinterpretation of CBC data. Current Interpretive Data was last revised on 2017. Basophil pct 0.8 % [facility] Comment: Interpretive Data Percent cell count reference ranges are not reported, since discordance with absolute values may lead to misinterpretation of CBC data. Current Interpretive Data was last revised on 2017. Blood 10/01/2024 8:40 AM SPECIAL FORCES OFFICER 10/01/2024 5:31 PM SPECIAL FORCES OFFICER Agnes Amaral MD LAB BLOOD ORDERABLES Radha soriano Result CHARLY MACIAS [address] [address] [place] [address] * Centromere ab IgG (10/01/2024 8:40 AM SPECIAL FORCES OFFICER) Anticentromere <0.2 <=0.9 Ab Index Comment:Testing performed by : [facility], [address] [place]., [address] Blood 10/01/2024 8:40 AM SPECIAL FORCES OFFICER 10/02/2024 10:02 AM SPECIAL FORCES OFFICER Narrative CHARLY - 10/02/2024 12:45 PM SPECIAL FORCES OFFICER FAX RESULTS TO [phone] Agnes amaral Agnes Amaral MD LAB BLOOD ORDERABLES Radha l Result CHARLY MACIAS [address] [address] [place] [address] * (ABNORMAL) Iron profile w/ IBC (10/01/2024 8:40 AM SPECIAL FORCES OFFICER) Pathologist [facility] Iron 61 50 - 150 mcg/dL Comment:Testing performed by : [place], [address] TIBC 245(L) 250 - 400 mcg/dL [facility] Comment:Testing performed by : [place], [address] Transferrin saturation 25 20 - 50 % [facility] Comment:Testing performed by : [place], [address] Blood 10/01/2024 8:40 AM SPECIAL FORCES OFFICER 10/01/2024 5:31 PM SPECIAL FORCES OFFICER Narrative CHARLY - 10/02/2024 4:59 PM SPECIAL FORCES OFFICER FAX RESULTS TO [phone] Agnes amaral Agnes Amaral MD LAB BLOOD ORDERABLES Radha l Result CHARLY MACIAS [address] [place] [address] * (ABNORMAL) CBC with auto differential (10/01/2024 8:40 AM SPECIAL FORCES OFFICER) Pathologist [facility] WBC 6.0 3.8 - 9.9 K/cumm Hgb 11.9(L) 13.0 - 17.5 g/dL [facility] Hct 37.3(L) 38.9 - 50.3 % [facility] Plt 268 150 - 400 K/cumm [facility] MPV 9.3 9.1 - 12.3 fL [facility] RBC 3.77(L) 4.30 - 5.80 M/cumm [facility] MCV 98.9(H) 81.3 - 96.4 fL [facility] MCH 31.6 27.1 - 33.3 pg [facility] MCHC 31.9(L) 32.3 - 35.7 g/dL [facility] RDW CV 13.6 11.1 - 14.9 % [facility] RDW SD 50.0(H) 35.7 - 48.1 fL [facility] NRBC abs 0.00 0.00 - 0.01 K/cumm [facility] Blood 10/01/2024 8:40 AM SPECIAL FORCES OFFICER 10/01/2024 5:31 PM SPECIAL FORCES OFFICER Narrative CHARLY - 10/01/2024 5:45 PM SPECIAL FORCES OFFICER FAX RESULTS TO [phone] Agnes amaral gAnes Amaral MD LAB BLOOD ORDERABLES Radha l Result Performing Organization Address [facility] Co de Phone Number DANICARITA MACIAS [address] [place] [address] * Folate (10/01/2024 8:40 AM SPECIAL FORCES OFFICER) [facility] Signature Folic acid 10.8 >=5.0 ng/mL Comment:Hemolysis present. R esults may be affected. Blood 10/01/2024 8:40 AM SPECIAL FORCES OFFICER 10/01/2024 5:31 PM SPECIAL FORCES OFFICER N[facility]ative [facility] - 10/01/2024 6:24 PM SPECIAL FORCES OFFICER FAX RESULTS TO [phone] Agnes amaral Agnes Amaral MD LAB BLOOD ORDERABLES Radha l Result Performing Organization Address City/[facility] Co de Phone Number DANICARITA MACIAS [address] [place] [address] * Ferritin (10/01/2024 8:40 AM SPECIAL FORCES OFFICER) Pathologist [facility] Ferritin 194 30 - 400 ng/mL Blood Venous blood specimen / Unknown 10/01/2024 8:40 AM SPECIAL FORCES OFFICER 10/01/2024 5:31 PM SPECIAL FORCES OFFICER Agnes Amaral MD LAB BLOOD ORDERABLES Radha l Result Performing Organization Address City/[facility] Co de Phone Number CHARLY [address] [address] [place] [address] * Vitamin B12 (10/01/2024 8:40 AM SPECIAL FORCES OFFICER) [facility] Vitamin B12 1,244 230 - 1,250 pg/mL Blood Venous blood specimen / Unknown 10/01/2024 8:40 AM SPECIAL FORCES OFFICER 10/01/2024 5:31 PM SPECIAL FORCES OFFICER Narrative [facility] - 10/01/2024 6:24 PM SPECIAL FORCES OFFICER FAX RESULTS TO [phone] Agnes amaral Agnes Amaral MD LAB BLOOD ORDERABLES Radha l Result Performing Organization Address [facility] de Phone Number [facility] [address] [address] [facility] [place] [address] * (ABNORMAL) Comprehensive metabolic panel (10/01/2024 8:40 AM SPECIAL FORCES OFFICER) [facility] Sodium 137 135 - 145 mmol/L Potassium, pl 4.4 3.3 - 4.9 mmol/L [facility] Chloride 100 97 - 110 mmol/L [facility] CO2 23 22 - 32 mmol/L [facility] Anion gap 14 2 - 15 mmol/L [facility] BUN 23 6 - 25 mg/dL [facility] Creatinine 1.47(H) 0.80 - 1.30 mg/dL [facility] Glucose 97 70 - 199 mg/dL [facility] Comment: Interpretive Data Fasting glucose >/= 126 [...] blood specimen / Unknown 10/01/2024 8:40 AM SPECIAL FORCES OFFICER 10/01/2024 5:31 PM SPECIAL FORCES OFFICER Narrative [facility] - 10/01/2024 6:24 PM SPECIAL FORCES OFFICER FAX RESULTS TO [phone] Agnes amaral Agnes Amaral MD LAB BLOOD ORDERABLES Radha soriano Result CHARLY [address] [address] [place] [address] * PSA screen (04/28/2024 8:20 AM CDT) [...] BLOOD ORDERABLES Fi nal Result CHARLY MACIAS [address] [address] [place] [address] * Colonoscopy (05/25/2023) Anatomical Region Laterality Modality [...] 3:13 PM - Electronically signed by Eros ELIAS: CURT Report ID: [id number] Reading Location: [place] [address] Procedure Note Eros Bautista MD - 05/05/2021 [...] Eros Bautista M.D. [place]: CURT Report ID: [id number] Reading Location: [id number] us Margarita Rodriguez STUDY MANAGER IMG CT PROCEDURES Final Re sult * Hepatitis C antibody (12/21/2016) SCRIBED HCV ab negative [facility] Blood specimen (specimen) Narrative [facility] - 12/21/2016 Result already scanned in media us Historical Provider LAB MICROBIOLOGY - GENERA L ORDERABLES Final Result [facility] from Last 3 Months or Most Recently Relevant to Health Maintenance Insurance [facility]IC[facility] CHOICE PPO MEDICARE [facility] CHOICE PLUS [facility] MEDICARE ADVANTAGE Advance Directives For more information, please contact: [phone] * Full Code (Latest Code Status on File) Date Activated Date Inactivated Comments 04/22/2019 11:44 AM 04/22/2019 4:27 PM * Full Code Date Activated Date Inactivated Comments 02/28/2019 4:55 PM 03/04/2019 2:51 PM * Full Code Date Activated Date Inactivated Comments 06/12/2018 1:47 PM 06/13/2018 7:20 PM Care Teams Sub Master Relationship Specialty Start Date End Date Wilner Bolaños MD PCP - General 12/15/16 Sangeetha Parra, CHAIN TESTING MACHINE OPERATOR [facility] Inspector Physical Therapy 06/03/18 Felicia Sales NP Nurse Practitioner Nurse Practitioner 03/03/19
--- OUTSIDE RECORDS SUMMARY | 2024-12-05 11:55 | XMS_ITS | Encounter Summary ---
Author Organization [facility] Address [address] [place] [address] Care Team Providers Care Satellite Communications Engineer Name Role Phone David Steel MD Primary Care Provider [phone] Encounter Details Date Type Department Care Team (Late st Contact Info) Description 08/22/2000 Outpatient Historical [facility] Primary Care - [address] [place] [address] David Steel MD [address] [address] Social History Tobacco Use Types Packs/Day Years Used Date Smoking Tobacco: Never Assessed Sex and Gender Information Value Date Recorded Sex Assigned at Not on file Legal Sex Male 3:47 AM KAIAWHINA Gender Identity Not on file Sexual Orientation Not on file documented as of this encounter Plan of Treatment Not on file documented as of this encounter Visit Diagnoses Not on filedocumented in this encounter Care Teams Satellite Communications Engineer Relationship Specialty Start Date End Date David Steel MD [address] [facility] [address] [place] [address] PCP - General 11/19/00 documented as of this encounter
--- OUTSIDE RECORDS SUMMARY | 2024-12-05 11:55 | XMS_ITS | Encounter Summary ---
Author Organization [facility] Address [address] [place] [address] Care Team Providers Care Marketing Developer Name Role Phone Wilner Bolaños MD Primary Care Provider Sangeetha Parra PTA Unavailable Unavailable Felicia Sales HEALTH CLUB MANAGER Unavailable [phone] Encounter Details Date Type Department Care Team (Late st Contact Info) Description 12/04/2024 Orders Only [facility] [address] [place] [address] Wilner Bolaños MD [address] [place] [address] [address] [place] [address] Social History Tobacco Use Types Packs/Day [...] on file 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 Gender Identity Not on file Sexual Orientation Not on file documented as of this encounter Plan of Treatment Not on file documented as of this encounter Procedures Procedure Name Priority Date/Time Associated Diagnosis Comments SCAN - LABS 12/04/2024 documented in this encounter Results * SCAN - LABS (12/04/2024) Wilner Bolaños MD Edited Result - Final documented in this encounter Visit Diagnoses Not on filedocumented in this encounter Care Teams Marketing Developer Relationship Specialty Start Date End Date Wilner Bolaños MD PCP - General 12/15/16 Sangeetha Parra PTA Staff Physical Therapy Assistant Physical Therapy 06/03/18 Felicia Sales NP Nurse Practitioner Nurse Practitioner 03/03/19 documented as of this encounter
--- OUTSIDE RECORDS SUMMARY | 2024-12-05 11:55 | XMS_ITS | Encounter Summary ---
Author Organization [facility] Address [address] [place] [address] Phone Care Team Providers Care Business Applications Manager Name Role Phone Wilner Bolaños MD Primary Care Provider Sangeetha Parra PTA Unavailable Unavailable Felicia Sales AVIATION ELECTRICIAN Unavailable [phone] Stacey Christie RN Unavailable [phone] Reba Rosas RN Unavailable [phone] Encounter Details Date Type Department Care Team (Late st Contact Info) Description 11/23/2017 Orders Only [facility] ProviderJian MD [address] [place] [address] Social History Tobacco Use Types Packs/Day Years Used Date Smoking Tobacco: Former Smokeless Tobacco: Never Alcohol Use Standard Drinks/Week Comments No 0 (1 standard drink = 0.6 oz pur e alcohol) Sex and Gender Information Value Date Recorded Sex Assigned at Not on file 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 us Historical Provider LAB BLOOD ORDERABLES Radha l Result documented in this encounter Visit Diagnoses Not on filedocumented in this encounter Care Teams Business Applications Manager Relationship Specialty Start Date End Date Wilner Bolaños MD PCP - General 12/15/16 Sangeetha Parra, STRAND BUNCHER [employer] WIRE Computer Information Science Professor Physical Therapy 06/03/18 Felicia Sales, TIFFANY Nurse Practitioner Nurse Practitioner 03/03/19 Stacey Christie, SACHIN [address] [place] [address] Heater Operator Helper 03/05/19 04/15/19 Reba Rosas RN [address] [address] Heater Operator Helper 02/26/20 04/19/20 documented as of this encounter
--- OUTSIDE RECORDS SUMMARY | 2024-12-05 11:55 | XMS_ITS | Encounter Summary ---
Author Organization [facility] Address [address] [place] [address] Care Team Providers Care Cook Chili Name Role Phone Wilner Bolaños MD Primary Care Provider David Gill MD Unavailable [phone] Encounter Details Date Type Department Care Team (Late st Contact Info) Description 10/04/2023 Lab Requisition [facility] - DermPath Lab [address] [facility], [place] [address] Agnes Neri MD [address] [facility] [address] [place] [address] Social History Tobacco Use Types Packs/Day Years [...] Comments DERMATOPATHOLOGY Routine 10/04/2023 11:2 1 AM ENGINEERING GROUP MANAGER documented in this encounter Results * DERMATOPATHOLOGY (10/04/2023 11:21 AM ENGINEERING GROUP MANAGER) Case Report Dermatopathology Report Case: [id number] Authorizing Provider: Agnes Neri MD Collected: 10/04/2023 11:21 AM Ordering Location: [facility] DermPath Lab Received: 10/05/2023 08:58 AM Pathologist: Elke Quinn MD Specimen: Skin, crown 4:32 PM [facility] DERMATOPATHOLOGY LABORATORY Final Diagnosis Specimen A. SKIN, crown: HYPERPLASTIC (HYPERTROPHIC) ACTINIC KERATOSIS, ERODED (L57.0) (see microscopic description) 4:32 PM [facility] DERMATOPATHOLOGY LABORATORY Clinical History R/o NMSC Favor PN. Eroded Papule 4:32 PM [facility] DERMATOPATHOLOGY LABORATORY Gross Description Specimen A: Received is one formalin filled container labeled with the patient's name and designated crown. The specimen consists of a shave biopsy measuring 9x6x1 mm. Jar 0. 4:32 PM [facility] DERMATOPATHOLOGY LABORATORY Microscopic Description Specimen A. SKIN, crown: There is hyperkeratosis alternating with parakeratosis. The epidermis is eroded. There is epidermal hyperplasia with disorderly maturation of keratinocytes with nuclear pleomorphism confined to the lower half of the epidermis. Additional deeper sections were obtained and reviewed. 4:32 PM [facility] DERMATOPATHOLOGY LABORATORY Disclaimer An external and internal positive and negative controls are appropriate for the histochemical, immunohistochemical and immunofluorescence stain(s) in this case (if any), except where stated explicitly. The performance characteristics of the stain(s) cited in this report were developed and its performance characteristic determined by the Dermatopathology Laboratory at [facility], directed by Dr. Shasta Loya. These tests need not be, and therefore are not, approved by the [place] Food and Drug Administration. The tests are used for clinical purposes. Billing Codes Specimen Charges Stain Charges 59523 1 4:32 PM [facility] DERMATOPATHOLOGY LABORATORY Embedded Images 4:32 PM [facility] DERMATOPATHOLOGY LABORATORY Pathology/Cytolo gy TISSUE SPECIMEN FROM SKIN / Unknown 10/04/2023 11:21 AM ENGINEERING GROUP MANAGER 10/05/2023 8:58 AM ENGINEERING GROUP MANAGER Agnes Neri MD LAB - PATHOLOGY/CYTO LOGY ORDERABLES DERMATOPATHOLOGY LABORATORY [facility] - Department of Dermatology [address] [phone] documented in this encounter Visit Diagnoses Not on filedocumented in this encounter Care Teams Cook Chili Relationship Specialty Start Date End Date Wilner Bolaños MD [address] [facility] [address] [place] [address] PCP - General Internal Medicine 03/26/20 [place] [address] [address] Orthopedic Surgery 03/26/20 documented as of this encounter
--- OUTSIDE RECORDS SUMMARY | 2024-12-05 11:55 | XMS_ITS | Encounter Summary ---
Author Organization [facility] Address [address] [place] [address] Care Team Providers Care Sharepoint Admin Name Role Phone Wilner Bolaños MD Primary Care Provider David Gill MD Unavailable [phone] Encounter Details Date Type Department Care Team (Late st Contact Info) Description 05/04/2020 Lab Requisition [facility] Care DermPath Lab [address] [facility] [place] [address] Marley Alonzo DO [address] [facility] [address] [place] [address] Social History Tobacco Use Types Packs/Day Years [...] AM CDT) Case Report Dermatopathology Report Case: [id number] Authorizing Provider: Marley Alonzo DO Collected: 05/03/2020 12:00 AM Ordering Location: [facility] DermPath Lab Received: 05/04/2020 12:48 PM Pathologist: Dimple Arroyo MD Specimen: Skin, nasal dorsum 0 [...] The specimen consists of a shave measuring [id number]. Jar 0. 0 2:04 PM CDT DERMATOPATHOLOGY [...] determined by the Dermatopathology Laboratory at [facility], directed by Dr. Shasta Loya. These tests need not be, and therefore are not, approved by the [place] Food and Drug Administration. The tests are used for clinical purposes. Billing Codes Specimen Charges Stain Charges 86518 1 0 2:04 PM CDT DERMATOPATHOLOGY LABORATORY Embedded Images 0 2:04 PM CDT DERMATOPATHOLOGY LABORATORY Pathology/Cytolog y TISSUE SPECIMEN FROM SKIN / Unknown 05/03/2020 05/04/2020 12:48 PM CDT Marley Alonzo DO LAB - PATHOLOGY/C YTOLOGY ORDERABLES DERMATOPATHOLOGY LABORATORY [facility] - Department of Dermatology [facility] [address] [place] [address] documented in this encounter Visit Diagnoses Not on filedocumented in this encounter Care Teams Sharepoint Admin Relationship Specialty Start Date End Date Wilner Bolaños MD [address] [facility] [address] [place] [phone] PCP - General Internal Medicine 03/26/20 [place] [address] [place] [address] Orthopedic Surgery 03/26/20 documented as of this encounter
--- OUTSIDE RECORDS SUMMARY | 2024-12-05 11:55 | XMS_ITS | Encounter Summary ---
Author Organization [facility] [employer] Address [address] [place] [address] Care Team Providers Care Net Lead Developer Name Role Phone David Steel MD Primary Care Provider [phone] Encounter Details Date Type Department Care Team (Late st Contact Info) Description 12/03/2024 External Device Data [facility] ABSTRACTION Provider, Abstract NO ADDRESS ON FILE Social History Tobacco Use Types Packs/Day Years Used Date Smoking Tobacco: Never Assessed Sex and Gender Information Value Date Recorded Sex Assigned at Not on file Legal Sex Male 3:47 AM CLINICAL TRIAL LEADER Gender Identity Not on file Sexual Orientation Not on file documented as of this encounter Plan of Treatment Not on file documented as of this encounter Visit Diagnoses Not on filedocumented in this encounter Care Teams Net Lead Developer Relationship Specialty Start Date End Date David Steel MD [address] [facility] [address] [address] PCP - General 11/19/00 documented as of this encounter
--- OUTSIDE RECORDS SUMMARY | 2024-12-05 11:55 | XMS_ITS | Referral Summary ---
Author Organization [facility] Address [address] [place] [address] Care Team Providers Care Brick Picker Name Role Phone Wilner Bolaños MD Primary Care Provider Sangeetha Parra PTA Unavailable Unavailable Felicia Sales ENGINEER TECHNICIAN Unavailable [phone] Encounters Date Type Department Care Team Description 12/04/2024 Orders Only [facility] Health Information Management [address] [place] [address] [phone] Wilner Bolaños MD 12/03/2024 Telephone [facility] Primary Care at [address] [place] [phone] Wilner Bolaños MD Referral Request 11/13/2024 10:30 AM UTILITY PIPE LAYER Office Visit [facility] Primary Care at [address] [place] [phone] Wilner Bolaños MD Essential hypertension (Primary Dx); BMI 36.0-36.9,adult; Benign prostatic hyperplasia with urinary retention; CKD stage G3a/A1, GFR 45-59 and albumin creatinine ratio <30 mg/g (HCC); Gastroesophageal reflux disease without esophagitis; H/O unilateral nephrectomy; Arthritis of left knee; Severe obstructive sleep apnea; Ulcerative pancolitis without complication (HCC); Paroxysmal atrial fibrillation (HCC); Severe obesity (HCC); Urine frequency; Mixed hyperlipidemia 11/10/2024 Orders Only [facility] Primary Care at [address] [place] [phone] Wilner Bolaños MD Skin lesion (Primary Dx) 10/28/2024 9:11 AM UTILITY PIPE LAYER - 10/28/2024 11:59 PM UTILITY PIPE LAYER Hospital Encounter [address] [address] CKD stage G3a/A1, GFR 45-59 and albumin creatinine ratio <30 mg/g (HCC); Essential hypertension Discharge Disposition: Discharge to home or self care 10/28/2024 9:15 AM UTILITY PIPE LAYER Lab [facility] Outpatient Lab at [address] [phone] Essential hypertension (Primary Dx) 10/21/2024 Telephone [facility] Primary Care at [address] [phone] Wilner Bolaños MD Referral Request 10/07/2024 Telephone [facility] Primary Care at [address] [phone] Wilner Bolaños MD Referral Request 10/01/2024 8:40 AM UTILITY PIPE LAYER - 10/01/2024 11:59 PM UTILITY PIPE LAYER Hospital Encounter [address] [address] Sleeping Car Conductor's nodule Discharge Disposition: Discharge to home or self care 10/01/2024 8:15 AM UTILITY PIPE LAYER Lab [facility] Outpatient Lab at [address] [phone] Sleeping Car Conductor's nodule (Primary Dx); Essential hypertension 09/30/2024 ACO Quality [facility] Accountable Care Organization [address] [place] [address] Pushpa Kimball MA 09/26/2024 Telephone [facility] Primary Care at [address] [phone] Wilner Bolaños MD Medical Question/Miscellaneous 09/26/2024 Telephone [facility] Primary Care at [address] [phone] Wilner Bolaños MD 09/15/2024 Orders Only [facility] Primary Care at [address] [phone] Wilner Bolaños MD 09/12/2024 Telephone [facility] Primary Care at [address] [phone] Sheridan Smith MA 09/12/2024 Orders Only [facility] Primary Care at [address] [phone] Sheridan Smith MA 09/12/2024 Orders Only [facility] Primary Care at [address] [phone] Wilner Bolaños MD 09/09/2024 Orders Only [facility] Primary Care at [address] [phone] Wilner Bolaños MD from Last 3 Months [...] Units total) by mouth daily Active vitamins A,C,E-zinc-messenger copy per 7,160-113-100 vpfy-mi-eerl tablet,delayed release (DR/EC) Take by mouth daily [...] face daily as directed. 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 Cont with metoprolol and eliquis for anticoagulation pending upcoming visit with concrete truck driver. Painful total knee replacement, right 02/27/2019 Benign prostatic hyperplasia with urinary retent ion 11/23/2017 Assessment & Plan (10/23/2019 8:49 AM UTILITY PIPE LAYER): Asymptomatic with last PSA of 2.99. Will Cnt. To monitor with upcoming PSA labs in 3 months as scheduled Assessment & Plan (11/23/2017 11:59 AM UTILITY PIPE LAYER): Urology consultation recommended. Patient had been referred [...] 02/26/2017 Assessment & Plan (11/07/2019 12:55 PM UTILITY PIPE LAYER): Will change hydralazine and clonidine to Losartan. Pt to call me with blood pressure results in 1 week. May consider adding Amlodipine if blood pressure is not well controlled Assessment & Plan (10/23/2019 8:48 AM UTILITY PIPE LAYER): Normotensive in clinic. Cnt. Prior prescribed antihypertensives, dash/heart healthy diet and F/U concrete truck driver scheduled Assessment & Plan (08/18/2019 4:15 PM UTILITY PIPE LAYER): BP slightly elevated in office today. Cont. [...] monitor. Assessment & Plan (11/23/2017 12:03 PM UTILITY PIPE LAYER): Blood pressure elevated today. Patient did have [...] Severe obstructive sleep apnea 01/31/2014 Overview (12/20/2016): [facility] SLEEP APNEA Assessment & Plan (11/07/2019 12:56 PM UTILITY PIPE LAYER): Pt is compliant with CPAP Assessment & Plan (10/23/2019 8:47 AM UTILITY PIPE LAYER): Stable on current CPAP settings Assessment & [...] REFLUX Assessment & Plan (10/23/2019 8:47 AM UTILITY PIPE LAYER): Cnt. Pepcid and dietary modifications as prior advised. Ulcerative colitis 01/31/2014 Overview (12/21/2016): ULCERATVE COLITIS UNSPCF Assessment & Plan (03/01/2019 12:03 AM CDT): Continue sulfasalazine Assessment & Plan (08/21/2017 2:56 PM UTILITY PIPE LAYER): Daily blood with 4 bms/day and much [...] Nasal saline spray (Simply saline, [employer] Remedies, [place], [place]) 2 second sprays or 2 squeezes into [...] 12/17/2020 Assessment & Plan (10/23/2019 8:46 AM UTILITY PIPE LAYER): Pt was advised to continue current therapy [...] 12/17/2020 Assessment & Plan (10/23/2019 8:49 AM UTILITY PIPE LAYER): Pt wishes to proceed forward with cataract extraction of BL eyes as directed by drum tester and desired by Pt. Preoperative clearance provided [...] (05/28/2018): Added automatically from request for surgery [id number] Urinary retention 11/23/2017 03/14/2018 Assessment & Plan (11/23/2017 12:07 PM UTILITY PIPE LAYER): Postvoid bladder scan revealing 129 mL of [...] 01/17/2018 Assessment & Plan (11/23/2017 11:59 AM UTILITY PIPE LAYER): Urology consultation recommended. Patient had been referred [...] 12/17/2020 Assessment & Plan (11/23/2017 12:04 PM UTILITY PIPE LAYER): Patient is followed by Psychiatry. He will continue routine follow-up and medications as previously directed by product marketing specialist. Acute prostatitis 11/23/2017 01/17/2018 Assessment & Plan (11/23/2017 11:58 AM UTILITY PIPE LAYER): Urine sample will be submitted for urinalysis with reflex to microscopy and culture. Patient has previously had a poor response to Bactrim for prostatitis. Therefore, we are going to begin treatment with Cipro which she has previously tolerated well with a satisfactory response. Skin lesion of back 02/26/2017 04/14/20 20 Assessment & Plan (02/26/2017 8:51 AM CDT): Referral arranged to local technician assistant, Dr. Lucía Trujillo for 2nd opinion per [...] on file Legal Sex Male 6:05 PM UTILITY PIPE LAYER Gender Identity Not on file Sexual Orientation Not on file Last Filed Vital Signs Vital Sign Reading Time Taken Comments Blood Pressure 132/62 11/13/2024 9:59 AM UTILITY PIPE LAYER Pulse 84 11/13/2024 9:59 AM UTILITY PIPE LAYER Temperature 36.4 C (97.5 F) 11/13/2024 9:59 AM UTILITY PIPE LAYER Respiratory Rate 16 11/13/2024 9:59 AM UTILITY PIPE LAYER Oxygen Saturation 98% 11/13/2024 9:59 AM UTILITY PIPE LAYER Inhaled Oxygen Concentration - - Weight 116.6 kg (257 lb) 11/13/2024 9:59 AM UTILITY PIPE LAYER Height 177.8 cm (5' 10 ) 11/13/2024 9:59 AM UTILITY PIPE LAYER Body Mass Index 36.88 11/13/2024 9:59 AM UTILITY PIPE LAYER Plan of Treatment Not on file Medical Devices Implanted Type Area Vat House Laborer Device Identifier Shelf Expiration Date Model / Serial / Lot [employer] [id number] Smartset High Viscosity Cement 40gm Bone Gentamicin - [id number] Implanted:Qty: 1 on 06/12/2018 by Wilner Valenzuela MD at [facility] Right: Knee [employer] 06/16/2019 [id number] / / [id number] [employer] [id number] Smartset High Viscosity Cement 40gm Bone Gentamicin - [id number] Implanted:Qty: 1 on 06/12/2018 by Wilner Valenzuela MD at [facility] Right: Knee [employer] 06/16/2019 [id number] / / [id number] [employer] [id number] Attune Cemented Posterior Stabilize Knee Right 6 Component - [id number] Implanted:Qty: 1 on 06/12/2018 by Wilner Valenzuela MD at [facility] Right: Knee [employer] 12/15/2027 [id number] / / [id number] [employer] [id number] Attune S+ Cement Fix Bearing Knee 7 Baseplate Tibial - [id number] Implanted:Qty: 1 on 06/12/2018 by Wilner Valenzuela MD at [facility] Right: Knee [employer] 10/17/2027 [id number] / / [id number] [employer] [id number] Attune 5mm Posterior Stabilize Fix Bearing Knee 6 Insert Tibial - [id number] Implanted:Qty: 1 on 06/12/2018 by Wilner Valenzuela MD at [facility] Right: Knee [employer] 01/14/2023 [id number] / / [id number] Procedures Procedure Name Priority Date/Time Associated Diagnosis Comments SCAN - LABS 12/04/2024 EGFR Routine 10/28/2024 9:11 AM UTILITY PIPE LAYER CKD stage G3a/A1, GFR 45-59 and albumin creatinine ratio <30 mg/g (HCC) Essential hypertension LIPID PANEL Routine 10/28/2024 9:11 AM UTILITY PIPE LAYER Essential hypertension COMPREHENSIVE METABOLIC PANEL Routine 10/28/2024 9:11 AM UTILITY PIPE LAYER CKD stage G3a/A1, GFR 45-59 and albumin creatinine ratio <30 mg/g (HCC) Essential hypertension EGFR Routine 10/01/2024 8:40 AM UTILITY PIPE LAYER Sleeping Car Conductor's nodule DIFFERENTIAL AUTO Routine 10/01/2024 8:4 0 AM UTILITY PIPE LAYER Sleeping Car Conductor's nodule COMPREHENSIVE METABOLIC PANEL Routine 10/01/2024 8:40 AM UTILITY PIPE LAYER Sleeping Car Conductor's nodule CBC WITH AUTO DIFFERENTIAL Routine 10/01/2024 8:40 AM UTILITY PIPE LAYER Sleeping Car Conductor's nodule IRON PROFILE W/ IBC Routine 10/01/2024 8 :40 AM UTILITY PIPE LAYER Sleeping Car Conductor's nodule VITAMIN B12 Routine 10/01/2024 8:40 AM UTILITY PIPE LAYER Sleeping Car Conductor's nodule FOLATE Routine 10/01/2024 8:40 AM UTILITY PIPE LAYER Sleeping Car Conductor's nodule CENTROMERE ANTIBODY, IGG Routine 10/01/2024 8:40 AM UTILITY PIPE LAYER Sleeping Car Conductor's nodule FERRITIN Routine 10/01/2024 8:40 AM UTILITY PIPE LAYER Sleeping Car Conductor's nodule PSA SCREEN Routine 04/28/2024 8:20 AM CDT Urine frequency COLONOSCOPY Routine 05/25/2023 CT ABDOMEN PELVIS WO CONTRAST Schedule FAUSTINO, Read FAUSTINO (Appt Today, Awaiting Results) 05/05/2021 2:53 PM CDT Abdominal pain Diarrhea, unspecified type Hx of ulcerative colitis HEPATITIS C ANTIBODY Routine 12/21/2016 from Last 3 Months or Most Recently Relevant to Health Maintenance Results * SCAN - LABS (12/04/2024) Wilner Bolaños MD Edited Result - Final * (ABNORMAL) eGFR (10/28/2024 9:11 AM UTILITY PIPE LAYER) eGFR 50(L) >=60 mL/min/1. 73 m2 Comment: [...] last reviewed 2021. Blood 10/28/2024 9:11 AM UTILITY PIPE LAYER 10/28/2024 3:53 PM UTILITY PIPE LAYER Wilner Bolaños MD LAB BLOOD ORDERABLES Fi nal Result CHARLY MACIAS [address] Department [place] [address] * (ABNORMAL) Lipid panel (10/28/2024 9:11 AM UTILITY PIPE LAYER) Cholesterol 156 30 - 199 mg/dL Comment: [...] on 2018. HDL 38(L) >=40 mg/dL CHARLY Comment: Interpretive Data Ages < [...] 2018. LDL, calculated 100 <=129 mg/dL CHARLY Comment: Interpretive Data Ages < [...] 4 [facility] Blood 10/28/2024 9:11 AM UTILITY PIPE LAYER 10/28/2024 3:28 PM UTILITY PIPE LAYER Narrative [facility] - 10/28/2024 4:33 PM UTILITY PIPE LAYER Has the patient been fasting for 8 hours or more?->Yes us Wilner Bolaños MD LAB [place]LOOD [place] [address] [address] [place] [address] * (ABNORMAL) Comprehensive metabolic panel (10/28/2024 9:11 AM UTILITY PIPE LAYER) Sodium 138 135 - 145 mmol/L Potassium, [...] classification and Diagnosis of Diabetes Diabetes Care 202; 46: S19-S40. Current interpretive data was last [...] Units/L [facility] Blood 10/28/2024 9:11 AM UTILITY PIPE LAYER 10/28/2024 3:28 PM UTILITY PIPE LAYER Narrative [facility] - 10/28/2024 4:33 PM UTILITY PIPE LAYER Has the patient fasted?->Yes us Wilner Bolaños MD LAB BLOOD ORDERABLES Fi nal Result [facility] [address] [address] [place] [address] * (ABNORMAL) eGFR (10/01/2024 8:40 AM UTILITY PIPE LAYER) eGFR 50(L) >=60 mL/min/1. 73 m2 Comment: [...] last reviewed 2021. Blood 10/01/2024 8:40 AM UTILITY PIPE LAYER 10/01/2024 5:36 PM UTILITY PIPE LAYER Agnes Amaral MD LAB BLOOD ORDERABLES Radha soriano Result [facility] [address] Department [place] [address] * Differential, auto (10/01/2024 8:40 AM UTILITY PIPE LAYER) Neutrophil abs 3.3 1.5 - 6.5 K/cumm Imm gran abs 0.0 0.0 - 0.1 K/cumm [facility] Lymphocyte abs 1.8 0.8 - 3.3 K/cumm [facility] Monocyte abs 0.7 0.2 - 0.8 K/cumm [facility] Eosinophil abs 0.1 0.0 - 0.5 K/cumm [facility] Basophil abs 0.1 0.0 - 0.1 K/cumm [facility] Neutrophil pct 55.4 % [facility] Comment: Interpretive Data Percent cell count reference ranges are not reported, since discordance with absolute values may lead to misinterpretation of CBC data. Current Interpretive Data was last revised on 2017. Imm gran pct 0.3 % [facility] Comment: Interpretive Data Percent cell count reference ranges are not reported, since discordance with absolute values may lead to misinterpretation of CBC data. Current Interpretive Data was last revised on 2017. Lymphocyte pct 30.4 % [facility] Comment: Interpretive Data Percent cell count reference ranges are not reported, since discordance with absolute values may lead to misinterpretation of CBC data. Current Interpretive Data was last revised on 2017. Monocyte pct 11.1 % [facility] Comment: Interpretive Data Percent cell count reference ranges are not reported, since discordance with absolute values may lead to misinterpretation of CBC data. Current Interpretive Data was last revised on 2017. Eosinophil pct 2.0 % [facility] Comment: Interpretive Data Percent cell count reference ranges are not reported, since discordance with absolute values may lead to misinterpretation of CBC data. Current Interpretive Data was last revised on 2017. Basophil pct 0.8 % [facility] Comment: Interpretive Data Percent cell count reference ranges are not reported, since discordance with absolute values may lead to misinterpretation of CBC data. Current Interpretive Data was last revised on 2017. Blood 10/01/2024 8:40 AM UTILITY PIPE LAYER 10/01/2024 5:31 PM UTILITY PIPE LAYER Agnes Amaral MD LAB BLOOD ORDERABLES Radha l Result Performing Organization Address City/[facility]/ZIP Co de Phone Number CHARLY [address] [place] [address] * Centromere ab IgG (10/01/2024 8:40 AM UTILITY PIPE LAYER) Anticentromere <0.2 <=0.9 Ab Index Comment:Testing performed by : [facility], [address] [place] [address]., [address] Blood 10/01/2024 8:40 AM UTILITY PIPE LAYER 10/02/2024 10:02 AM UTILITY PIPE LAYER Narrative CHARLY - 10/02/2024 12:45 PM UTILITY PIPE LAYER FAX RESULTS TO [phone] Agnes amaral Agnes Amaral MD LAB BLOOD ORDERABLES Radha l Result CHARLY [address] [address] Department [place] [address] * (ABNORMAL) Iron profile w/ IBC (10/01/2024 8:40 AM UTILITY PIPE LAYER) [facility] Iron 61 50 - 150 mcg/dL Comment:Testing performed by : [place], [address] TIBC 245(L) 250 - 400 mcg/dL [facility] Comment:Testing performed by : [place], [address] Transferrin saturation 25 20 - 50 % [facility] Comment:Testing performed by : [place], [address] Blood 10/01/2024 8:40 AM UTILITY PIPE LAYER 10/01/2024 5:31 PM UTILITY PIPE LAYER Narrative [facility] - 10/02/2024 4:59 PM UTILITY PIPE LAYER FAX RESULTS TO [phone] Agnes amaral Agnes Amaral MD LAB BLOOD ORDERABLES Radha soriano Result [facility] [address] Department [place] [address] * (ABNORMAL) CBC with auto differential (10/01/2024 8:40 AM UTILITY PIPE LAYER) [facility] WBC 6.0 3.8 - 9.9 K/cumm Hgb 11.9(L) 13.0 - 17.5 g/dL [facility] Hct 37.3(L) 38.9 - 50.3 % [facility] Plt 268 150 - 400 K/cumm [facility] MPV 9.3 9.1 - 12.3 fL [facility] RBC 3.77(L) 4.30 - 5.80 M/cumm [facility] MCV 98.9(H) 81.3 - 96.4 fL [facility] MCH 31.6 27.1 - 33.3 pg [facility] MCHC 31.9(L) 32.3 - 35.7 g/dL [facility] RDW CV 13.6 11.1 - 14.9 % [facility] RDW SD 50.0(H) 35.7 - 48.1 fL [facility] NRBC abs 0.00 0.00 - 0.01 K/cumm [facility] Blood 10/01/2024 8:40 AM UTILITY PIPE LAYER 10/01/2024 5:31 PM UTILITY PIPE LAYER Narrative [facility] - 10/01/2024 5:45 PM UTILITY PIPE LAYER FAX RESULTS TO [phone] Agnes amaral Agnes Amaral MD LAB BLOOD ORDERABLES Radha l Result [facility] [address] Department [place] [address] * Folate (10/01/2024 8:40 AM UTILITY PIPE LAYER) [facility] Folic acid 10.8 >=5.0 ng/mL Comment:Hemolysis present. R esults may be affected. Blood 10/01/2024 8:40 AM UTILITY PIPE LAYER 10/01/2024 5:31 PM UTILITY PIPE LAYER Narrative [facility] - 10/01/2024 6:24 PM UTILITY PIPE LAYER FAX RESULTS TO [phone] Agnes amaral Agnes Amaral MD LAB BLOOD ORDERABLES Radha l Result [facility] [address] [address] Department [place] [facility] [place] [address] * Ferritin (10/01/2024 8:40 AM UTILITY PIPE LAYER) [facility] Ferritin 194 30 - 400 ng/mL Blood Venous blood specimen / Unknown 10/01/2024 8:40 AM UTILITY PIPE LAYER 10/01/2024 5:31 PM UTILITY PIPE LAYER Agnes Amaral MD LAB BLOOD ORDERABLES Radha l Result [facility] [address] [address] Department [place] [address] * Vitamin B12 (10/01/2024 8:40 AM UTILITY PIPE LAYER) Vitamin B12 1,244 230 - 1,250 pg/mL Blood Venous blood specimen / Unknown 10/01/2024 8:40 AM UTILITY PIPE LAYER 10/01/2024 5:31 PM UTILITY PIPE LAYER Narrative [facility] - 10/01/2024 6:24 PM UTILITY PIPE LAYER FAX RESULTS TO [phone] Agnes amaral Agnes Amaral MD LAB BLOOD ORDERABLES Radha l Result [facility] [address] Department [place] [address] * (ABNORMAL) Comprehensive metabolic panel (10/01/2024 8:40 AM UTILITY PIPE LAYER) Pathologist [facility] Sodium 137 135 - 145 mmol/L Potassium, pl 4.4 3.3 - 4.9 mmol/L [facility] Chloride 100 97 - 110 mmol/L [facility] CO2 23 22 - 32 mmol/L [facility] Anion gap 14 2 - 15 mmol/L [facility] BUN 23 6 - 25 mg/dL [facility] Creatinine 1.47(H) 0.80 - 1.30 mg/dL [facility] Glucose 97 70 - 199 mg/dL [facility] Comment: Interpretive Data Fasting glucose >/= 126 [...] blood specimen / Unknown 10/01/2024 8:40 AM UTILITY PIPE LAYER 10/01/2024 5:31 PM UTILITY PIPE LAYER Narrative [facility] - 10/01/2024 6:24 PM UTILITY PIPE LAYER FAX RESULTS TO [phone] Agnes amaral Agnes Amaral MD LAB BLOOD ORDERABLES Radha l Result Performing Organization Address City/State/[facility] Co de Phone Number CHARLY [address] Department of [facility] [place], [place] [id number] * PSA screen (04/28/2024 8:20 AM CDT) [...] nal Result Performing Organization Address [facility]/ZIP Co de Phone Number CHARLY [address] [address] Department [place] [facility] [place] [address] * Colonoscopy (05/25/2023) Anatomical Region Laterality Modality [...] Eros Bautista M.D. [place]: [place] Report ID: [id number] Reading Location: [id number] Procedure Note Eros Bautista MD - 05/05/2021 [...] Eros Bautista M.D. [place]: [place] Report ID: [id number] Reading Location: [id number] Margarita Rodriguez NP IMG CT PROCEDURES Final Re sult * Hepatitis C antibody (12/21/2016) SCRIBED HCV ab negative [facility] Blood specimen (specimen) Narrative [facility] - 12/21/2016 Result already scanned in media Historical Provider LAB MICROBIOLOGY - GENERA L ORDERABLES Final Result [facility] from Last 3 Months or Most Recently Relevant to Health Maintenance Insurance [facility] MEDICARE [facility] ADVANTAGE CHOICE [facility] MEDICARE [facility] CHOICE PLUS [facility] MEDICARE ADVANTAGE Advance Directives For more information, please contact: [phone] * Full Code (Latest Code Status on File) Date Activated Date Inactivated Comments 04/22/2019 11:44 AM 04/22/2019 4:27 PM * Full Code Date Activated Date Inactivated Comments 02/28/2019 4:55 PM 03/04/2019 2:51 PM * Full Code Date Activated Date Inactivated Comments 06/12/2018 1:47 PM 06/13/2018 7:20 PM Care Teams Brick Picker Relationship Specialty Start Date End Date Wilner Bolaños MD PCP - General 12/15/16 Sangeetha Parra, [facility] Privacy Attorney Physical Therapy 06/03/18 Felicia Sales NP Nurse Practitioner Nurse Practitioner 03/03/19
--- OUTSIDE RECORDS SUMMARY | 2024-12-05 11:55 | XMS_ITS | Encounter Summary ---
Author Organization [facility] Healthcare Address [address] [place] [address] Care Team Providers Care Government Clerk Name Role Phone Wilner Bolaños MD Primary Care Provider Sangeetha Parra PTA Unavailable Unavailable Felicia Sales [employer]AT [employer] MAKER HELPER MACHINE Unavailable [phone] Encounter Details Date Type Department Care Team (Late st Contact Info) Description 09/26/2024 Telephone [facility] Medical Group Primary Care at [address] [place] [address] Wilner Bolaños MD [address] [place] [address] [address] [place] [address] Social History Tobacco Use Types [...] on file Legal Sex Male 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
--- OUTSIDE RECORDS SUMMARY | 2024-12-05 11:55 | XMS_ITS | Encounter Summary ---
Author Organization [employer] Address 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
--- OUTSIDE RECORDS SUMMARY | 2024-12-05 11:55 | XMS_ITS | Encounter Summary ---
Author Organization [employer] Address 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
== END 2024-12-05 10:45 | disposition home or self-care (01) ==
PROVIDERS: PCP Internal Medicine; Visit Provider Internal Medicine Gastroenterology
DX: K51.90 Ulcerative colitis, unspecified, without complications (principal)
CPT/HCPCS: 83993

== ENCOUNTER 2025-01-14 00:16 | Day surgery (SDC) | payer MEDICARE, SELFPAY ==
[2024-10-20 14:48] VITALS: BMI 35.9
[2025-01-01 14:39] VITALS: BMI 34.2
--- OUTSIDE RECORDS SUMMARY | 2025-01-14 00:18 | XMS_ITS | Encounter Summary ---
Author Organization [facility] Address [address] [place] [address] Care Team Providers Care Dinner Cook Name Role Phone Wilner Bolaños MD Primary Care Provider Sangeetha Parra PTA Unavailable Unavailable Felicia Sales MACHINE PRINTER HOSE Unavailable [phone] Encounter Details Date Type Department Care Team (Late st Contact Info) Description 09/26/2024 Telephone [facility] Primary Care at [address] [place] [address] Wilner Bolaños MD [address] [place] [address] [address] [place] [address] Social History Tobacco Use Types [...] on file 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
--- OUTSIDE RECORDS SUMMARY | 2025-01-14 00:18 | XMS_ITS | Encounter Summary ---
Author Organization [employer] Address [address] [place] [address] Care Team Providers Care Pulp Screen Operator Name Role Phone David Steel MD Primary Care Provider [phone] Encounter Details Date Type Department Care Team (Latest Contact Info) Description 11/19/2000 Inpatient Historical HIS PATIENT IN A BED Lorelei Ruiz William F, MD [address] [facility] [address] [place] [address] Other and unspecified noninfectious gastroenteritis and colitis(558.9) (Primary Dx) Social History Tobacco Use Types Packs/Day Years Used Date Smoking Tobacco: Never Assessed Sex and Gender Information Value Date Recorded Sex Assigned at Not on file 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
--- OUTSIDE RECORDS SUMMARY | 2025-01-14 00:18 | XMS_ITS | Encounter Summary ---
Author Organization [facility] Address 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
--- OUTSIDE RECORDS SUMMARY | 2025-01-14 00:18 | XMS_ITS | Encounter Summary ---
Author Organization [facility] Address [address] [place] [address] Care Team Providers Care Plumbing Hardware Assembler Name Role Phone David Steel MD Primary Care Provider [phone] Encounter Details Date Type Department Care Team (Late st Contact Info) Description 08/22/2000 Outpatient Historical [facility] Primary Care - [address] [place] [address] David Steel MD [address] [address] Social History Tobacco Use Types Packs/Day Years Used Date Smoking Tobacco: Never Assessed Sex and Gender Information Value Date Recorded Sex Assigned at Not on file 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
--- OUTSIDE RECORDS SUMMARY | 2025-01-14 00:18 | XMS_ITS | Clinical Summary ---
Author Organization [facility] Address [address] Palacio: Epic Prelude [place]T [place] [address] Care Team Providers Care Rubber Down Name Role Phone David Steel MD Primary Care Provider [phone] Allergies No known active allergies Medications clindamycin [...] daily. 30 Tablet 11 08/02/2022 3:48 PM CHEMIST INSTRUMENTATION 2 Active clotrimazole-be tamethasone (LOTRISONE) 1-0.05 % Cream APPLY TO BUMPS ON ARMS DIRECTED 45 Gram 3 09/06/2022 11:04 AM CHEMIST INSTRUMENTATION 2 Active adalimumab (Humira,CF, Pen Pyycvj-UY-QY) 80 mg/0.8 mL Pen Injector Kit Inject the contents of 2 pens under the skin on Day 1; then inject the contents of 1 pen on Day 15 of therapy. 3 Each 3 Active amoxicillin (AMOXIL) 500 mg capsule Take 1 capsule by mouth three times daily until gone. 40 Capsule 10/09/2022 1:11 PM CHEMIST INSTRUMENTATION 3 Active amoxicillin (AMOXIL) 500 mg capsule Take 4 capsules by mouth one hour before dental appointment. 12 Capsule 2 10/19/2022 3:37 PM CHEMIST INSTRUMENTATION 3 Active benzonatate (TESSALON) 100 mg capsule Take 2 Capsules (200 mg) by mouth 3 times daily as needed for cough. 60 Capsule 3 09/14/2023 11:56 AM CHEMIST INSTRUMENTATION 3 Active triamcinolone acetonide (KENALOG) 0.1 % Cream APPLY TO BODY EVERY OTHER DAY DIRECTED 454 Gram 5 01/24/2024 3:41 PM CDT 3 Active tiZANidine (ZANAFLEX) 2 mg Tablet Take 1 tablet (2 mg total) by mouth every 6 (six) hours as needed (back pain) 60 Tablet 3 11/20/2023 3:17 PM CHEMIST INSTRUMENTATION 3 Active clotrimazole-be tamethasone (LOTRISONE) 1-0.05 % Cream Apply topically 2 (two) times a day 45 Gram 1 07/27/2023 10:34 AM CHEMIST INSTRUMENTATION 3 Active mupirocin (BACTROBAN) 2 % Ointment Apply to scalp twice daily. 22 Gram 3 07/27/2023 10:34 AM CHEMIST INSTRUMENTATION 3 Active pimecrolimus (ELIDEL) 1 % Cream Apply to face and body two times daily as directed. 60 Gram 3 10/06/2023 8:53 AM CHEMIST INSTRUMENTATION 3 Active amoxicillin (AMOXIL) 875 mg tablet Take 1 Tablet (875 mg) by mouth 2 times daily. 14 Tablet 08/24/2023 9:25 AM CHEMIST INSTRUMENTATION 3 Active LORazepam (ATIVAN) 2 mg tablet Bring medication to your appointment. You must arrive one hour prior to your scheduled appointment time. Do not take in advance. 1 Tablet 09/11/2023 2:45 PM CHEMIST INSTRUMENTATION 3 Active fluocinolone acetonide oiL (DERMOTIC) 0.01 % Drops Administer 5 Drops in both ears 2 times daily. 20 mL 3 10/29/2023 4:17 PM CHEMIST INSTRUMENTATION 4 Active mupirocin (BACTROBAN) 2 % Ointment [...] directed 100 Gram 5 09/12/2024 2:21 PM CHEMIST INSTRUMENTATION 4 Active metroNIDAZOLE (METROGEL) 1 % Gel [...] daily. 30 Tablet 12 09/30/2024 12:05 PM CHEMIST INSTRUMENTATION 4 Active losartan-hydroC HLOROthiazide (HYZAAR) 100-12.5 mg tablet Take 1 tablet by mouth daily. 90 Tablet 3 10/23/2024 11:07 AM CHEMIST INSTRUMENTATION 4 Active benzonatate (TESSALON) 100 mg capsule Take 2 capsules (200 mg total) by mouth 3 (three) times a day as needed for cough 60 Capsule 1 09/12/2024 2:21 PM CHEMIST INSTRUMENTATION 4 Active triamcinolone acetonide (KENALOG) 0.1 % Cream Apply to rash on arms twice daily 454 Gram 3 11/14/2024 9:59 AM CHEMIST INSTRUMENTATION 5 Active amoxicillin (AMOXIL) 500 mg capsule Take 4 tablet/capsule (2,000 mg total) by mouth once for 1 dose prior to dental procedure. Repeat dose as needed/directed by dentist. 12 Capsule 11/20/2024 4:02 PM CHEMIST INSTRUMENTATION 5 Active upadacitinib (Rinvoq) 15 mg Tablet Sustained Release 24HR Take 15 mg by mouth daily. 30 Tablet 11 5 Active mesalamine (LIALDA) 1.2 gram Tablet, Delayed Release (E.C.) Take 3 Tablets (3.6 Grams) by mouth daily. 90 Tablet 5 01/10/2025 9:30 AM CDT 5 Active Encounters Date Type Department Care Team Description 12/30/2024 External Device Data STL ABSTRACTION Provider, Abstract [...] on file Legal Sex Male 3:47 AM CHEMIST INSTRUMENTATION Gender Identity Not on file Sexual Orientation [...] Part D Address: [place] Care Teams Rubber Down Relationship Specialty Start Date End Date David Steel MD [address] [facility] [address] [address] PCP - General 11/19/00
--- OUTSIDE RECORDS SUMMARY | 2025-01-14 00:18 | XMS_ITS | Encounter Summary ---
Author Organization [employer] Address [address] [place] [address] Care Team Providers Care Ruby On Rails Software Developer Name Role Phone David Steel MD Primary Care Provider [phone] Encounter Details Date Type Department Care Team (Late st Contact Info) Description 11/25/[address] [facility] Support Serv. (Adt Cardiology-[facility]) [address] [place] [address] David Pan Social History Tobacco Use Types Packs/Day Years Used Date Smoking Tobacco: Never Assessed Sex and Gender Information Value Date Recorded Sex Assigned at Not on file Legal Sex Male 3:47 AM CLINICAL CYTOGENETICS DIRECTOR Gender Identity Not on file Sexual Orientation Not on file documented as of this encounter Plan of Treatment Not on file documented as of this encounter Visit Diagnoses Not on filedocumented in this encounter Care Teams Ruby On Rails Software Developer Relationship Specialty Start Date End Date David Steel MD [address] [facility] [address] [address] PCP - General 11/19/00 documented as of this encounter
--- OUTSIDE RECORDS SUMMARY | 2025-01-14 00:18 | XMS_ITS | Encounter Summary ---
Author Organization [facility] Address [address] [place] [address] Phone Care Team Providers Care Section Maintainer Name Role Phone Wilner Bolaños MD Primary Care Provider Sangeetha Parra PTA Unavailable Unavailable Felicia Sales PRODUCT SUPPORT MANAGER Unavailable [phone] Stacey Christie RN Unavailable [phone] Reba Rosas RN Unavailable Encounter Details Date Type Department Care Team (Late st Contact Info) Description 01/03/2018 Orders Only [facility] ProviderJian MD [address] [place] [place] [address] Social History Tobacco Use Types Packs/Day Years Used Date Smoking Tobacco: Former Smokeless Tobacco: Never Alcohol Use Standard Drinks/Week Comments No 0 (1 standard drink = 0.6 oz pur e alcohol) Sex and Gender Information Value Date Recorded Sex Assigned at Not on file 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 Sex Male 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 Gender Identity Not on file Sexual [...] on filedocumented in this encounter Care Teams Section Maintainer Relationship Specialty Start Date End Date Wilner Bolaños MD PCP - General 12/15/16 Sangeetha Parra, COUNTER SALES REPRESENTATIVE Railway Signal Technician Physical Therapy 06/03/18 Felicia Sales, TIFFANY Nurse Practitioner Nurse Practitioner 03/03/19 Stacey Christie RN [address] [place] [address] Forming Department End Finder 03/05/19 04/15/19 Reba Rosas RN [address] [facility] [address] [place] [address] Forming Department End Finder 02/26/20 04/19/20 documented as of this encounter
--- OUTSIDE RECORDS SUMMARY | 2025-01-14 00:18 | XMS_ITS | Encounter Summary ---
Author Organization [employer] Address 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
--- OUTSIDE RECORDS SUMMARY | 2025-01-14 00:18 | XMS_ITS | Encounter Summary ---
Author Organization [employer] Address 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
--- OUTSIDE RECORDS SUMMARY | 2025-01-14 00:18 | XMS_ITS | Encounter Summary ---
Author Organization [facility] Address [address] [place] [address] Care Team Providers Care Supervisor Typesetting Name Role Phone Wilner Bolaños MD Primary Care Provider David Gill MD Unavailable [phone] Encounter Details Date Type Department Care Team (Late st Contact Info) Description 05/04/2020 Lab Requisition [facility] D[facility] [address] [facility] [place] [address] Marley Alonzo DO [address] [facility] [address] [place] [address] Social History Tobacco Use Types Packs/Day Years Used Date Smoking Tobacco: Never Assessed Sex and Gender Information Value Date Recorded Sex Assigned at Not on file Legal Sex Male 5:37 PM PAYMASTER OF PURSES Gender Identity Not on file Sexual Orientation [...] AM CDT) Case Report Dermatopathology Report Case: [id number] Authorizing Provider: Marley Alonzo DO Collected: 05/03/2020 12:00 AM Ordering Location: [facility] DermPath Lab Received: 05/04/2020 12:48 PM Pathologist: [...] The specimen consists of a shave measuring [id number]. Jar 0. 0 2:04 PM CDT DERMATOPATHOLOGY [...] by the Dermatopathology Laboratory at [facility], directed by Dr. Shasta Loya. These tests need not be, and therefore are not, approved by the [place] Food and Drug Administration. The tests are used for clinical purposes. Billing Codes Specimen Charges Stain Charges 91580 1 0 2:04 PM CDT DERMATOPATHOLOGY LABORATORY Embedded Images 0 2:04 PM CDT DERMATOPATHOLOGY LABORATORY Pathology/Cytolog y TISSUE SPECIMEN FROM SKIN / Unknown 05/03/2020 05/04/2020 12:48 PM CDT Marley Alonzo DO LAB - PATHOLOGY/CYTOLOGY ORDERABLES Final Result DERMATOPATHOLOGY LABORATORY [facility] - Department of Dermatology [facility]/[address] [phone] documented in this encounter Visit Diagnoses Not on filedocumented in this encounter Care Teams Supervisor Typesetting Relationship Specialty Start Date End Date Wilner Bolaños MD [address] [facility] [address] [place] [address] PCP - General Internal Medicine 03/26/20 [place] [address] [facility] [address] [place] [address] Orthopedic Surgery 03/26/20 documented as of this encounter
--- OUTSIDE RECORDS SUMMARY | 2025-01-14 00:18 | XMS_ITS | Encounter Summary ---
Author Organization [facility] Address [address] [place] [address] Care Team Providers Care Training And Development Professional Name Role Phone David Steel MD Primary Care Provider [phone] Encounter Details Date Type Department Care Team (Late st Contact Info) Description 05/16/2000 Outpatient Historical [facility] Primary Care - [address] [place] [address] David Steel MD [address] [address] Social History Tobacco Use Types Packs/Day Years Used Date Smoking Tobacco: Never Assessed Sex and Gender Information Value Date Recorded Sex Assigned at Not on file Legal Sex Male 3:47 AM INTERIOR DECORATOR PAPERHANGING Gender Identity Not on file Sexual Orientation Not on file documented as of this encounter Plan of Treatment Not on file documented as of this encounter Visit Diagnoses Not on filedocumented in this encounter Care Teams Training And Development Professional Relationship Specialty Start Date End Date David Steel MD [address] [facility] [address] [place] [address] PCP - General 11/19/00 documented as of this encounter
--- OUTSIDE RECORDS SUMMARY | 2025-01-14 00:18 | XMS_ITS | Referral Summary ---
Author Organization [facility] Address [address] [place] [address] Care Team Providers Care Business Travel Consultant Name Role Phone Wilner Bolaños MD Primary Care Provider Sangeetha Parra PTA Unavailable Unavailable Felicia Sales JOB HONER Unavailable [phone] Encounters Date Type Department Care Team Description 12/26/2024 2:30 PM CDT Procedure visit [facility] Medical [facility] Primary Care at [address] [phone] Wilner Bolaños MD Arthritis of left knee (Primary Dx); CKD stage G3a/A1, GFR 45-59 and albumin creatinine ratio <30 mg/g (HCC); Essential hypertension 12/05/2024 Orders Only [facility] [address] [place] [phone] Wilner Bolaños MD 12/05/2024 Results Follow-Up [facility] Primary Care at [address] [phone] Wilner Bolaños MD 12/04/2024 Orders Only [facility] [address] [place] [phone] Wilner Bolaños MD 12/03/2024 Telephone [facility] Primary Care at [address] [phone] Wilner Bolaños MD Referral Request 11/13/2024 10:30 AM FACIALIST Office Visit [facility] Primary Care at [address] [place] [phone] Wilner Bolaños MD Essential hypertension (Primary Dx); BMI 36.0-36.9,adult; Benign prostatic hyperplasia with urinary retention; CKD stage G3a/A1, GFR 45-59 and albumin creatinine ratio <30 mg/g (HCC); Gastroesophageal reflux disease without esophagitis; H/O unilateral nephrectomy; Arthritis of left knee; Severe obstructive sleep apnea; Ulcerative pancolitis without complication (HCC); Paroxysmal atrial fibrillation (HCC); Severe obesity (HCC); Urine frequency; Mixed hyperlipidemia 11/10/2024 Orders Only [facility] Primary Care at [address] [place] [phone] Wilner Bolaños MD Skin lesion (Primary Dx) 10/28/2024 9:11 AM FACIALIST - 10/28/2024 11:59 PM FACIALIST Hospital Encounter [address] [address] CKD stage G3a/A1, GFR 45-59 and albumin creatinine ratio <30 mg/g (HCC); Essential hypertension Discharge Disposition: Discharge to home or self care 10/28/2024 9:15 AM FACIALIST Lab [facility] Outpatient Lab at [address] [phone] Essential hypertension (Primary Dx) 10/21/2024 Telephone [facility] Primary Care at [address] [phone] Wilner Bolaños MD Referral Request from Last 3 Months Allergies Active Allergy [...] Units total) by mouth daily Active vitamins A,C,E-zinc-copying machine repairer per 7,160-113-100 opev-zd-dbjw tablet,delayed release (DR/EC) Take by mouth daily [...] day 60 g 3 12/18/19 21 Active clindamycin (CLEOCIN T) 1 % external solution Apply to face daily as directed. 02/21/20 22 Active ilgrdlo-hsbi-p mawu-whpl-cjza yl 100 mg-150 mg- 50 mg-150 mg [...] cough 60 capsule 1 09/12/20 24 Active triamcinolone (KENALOG) 0.1 % cream Apply topically 2 (two) times a day To rash of arms 453.6 g 3 11/13/19 25 Active amoxicillin 500 mg tablet/capsule Take 4 tablet/capsule (2,000 mg total) by mouth once for 1 dose prior to dental procedure. Repeat dose as needed/directe d by dentist. 12 tablet/capsu le 11/21/19 25 Active azaTHIOprine (IMURAN) 50 mg tablet 12/02/19 22 025 Discontinued finasteride (PROSCAR) 5 mg tablet Take 1 tablet (5 mg total) by mouth daily To help bladder and prostate symptoms 90 tablet 3 09/15/20 24 025 Discontinued Hospital, Clinic, or Other Facility Administered Medication Ordered Dose Route Frequency Start Date End Date Status methylPREDNISolone acetate (DEPO-medrol) injection 40 mgIndications:Arthrit is of left knee 40 mg intra-artic Once 12/26/2024 12/27/2024 Ended Active Problems Problem Noted Date Diagnosed Date Severe obesity 05/07/2024 Chronic anticoagulation 08/15/2023 Obesity 11/08/2022 CKD stage G3a/A1, GFR 45-59 and albumin creatinine ratio <30 mg/g 04/25/2022 Arthritis of left knee 03/10/2022 Bradycardia 01/13/2022 Right shoulder tendinitis 12/30/2021 H/O unilateral nephrectomy 04/14/2020 Paroxysmal atrial fibrillation 03/04/2019 Assessment & Plan (11/07/2019 12:51 PM FACIALIST): No BB due to bradycardia, on chronic Eliquis Assessment & Plan (10/23/2019 8:47 AM FACIALIST): NSR today in clinic. Cont with metoprolol and eliquis for anticoagulation pending upcoming visit with cigar wrapper tender automatic. Painful total knee replacement, right 02/27/2019 Benign prostatic hyperplasia with urinary retent ion 11/23/2017 Assessment & Plan (10/23/2019 8:49 AM FACIALIST): Asymptomatic with last PSA of 2.99. Will Cnt. To monitor with upcoming PSA labs in 3 months as scheduled Assessment & Plan (11/23/2017 11:59 AM FACIALIST): Urology consultation recommended. Patient had been referred [...] 02/26/2017 Assessment & Plan (11/07/2019 12:55 PM FACIALIST): Will change hydralazine and clonidine to Losartan. Pt to call me with blood pressure results in 1 week. May consider adding Amlodipine if blood pressure is not well controlled Assessment & Plan (10/23/2019 8:48 AM FACIALIST): Normotensive in clinic. Cnt. Prior prescribed antihypertensives, dash/heart healthy diet and F/U cigar wrapper tender automatic scheduled Assessment & Plan (08/18/2019 4:15 PM FACIALIST): BP slightly elevated in office today. Cont. [...] monitor. Assessment & Plan (11/23/2017 12:03 PM FACIALIST): Blood pressure elevated today. Patient did have [...] Severe obstructive sleep apnea 01/31/2014 Overview (12/20/2016): [facility] Assessment & Plan (11/07/2019 12:56 PM FACIALIST): Pt is compliant with CPAP Assessment & Plan (10/23/2019 8:47 AM FACIALIST): Stable on current CPAP settings Assessment & [...] REFLUX Assessment & Plan (10/23/2019 8:47 AM FACIALIST): Cnt. Pepcid and dietary modifications as prior advised. Ulcerative colitis 01/31/2014 Overview (12/21/2016): [facility] Assessment & Plan (03/01/2019 12:03 AM CDT): Continue sulfasalazine Assessment & Plan (08/21/2017 2:56 PM FACIALIST): Daily blood with 4 bms/day and much [...] Nasal saline spray (Simply saline, Little Remedies, [place], [place]) 2 second sprays or 2 squeezes into [...] 12/17/2020 Assessment & Plan (10/23/2019 8:46 AM FACIALIST): Pt was advised to continue current therapy [...] 12/17/2020 Assessment & Plan (10/23/2019 8:49 AM FACIALIST): Pt wishes to proceed forward with cataract extraction of BL eyes as directed by railroad construction director and desired by Pt. Preoperative clearance provided [...] (05/28/2018): Added automatically from request for surgery [id number] Urinary retention 11/23/2017 03/14/2018 Assessment & Plan (11/23/2017 12:07 PM FACIALIST): Postvoid bladder scan revealing 129 mL of [...] 01/17/2018 Assessment & Plan (11/23/2017 11:59 AM FACIALIST): Urology consultation recommended. Patient had been referred [...] 12/17/2020 Assessment & Plan (11/23/2017 12:04 PM FACIALIST): Patient is followed by Psychiatry. He will continue routine follow-up and medications as previously directed by management specialist. Acute prostatitis 11/23/2017 01/17/2018 Assessment & Plan (11/23/2017 11:58 AM FACIALIST): Urine sample will be submitted for urinalysis with reflex to microscopy and culture. Patient has previously had a poor response to Bactrim for prostatitis. Therefore, we are going to begin treatment with Cipro which she has previously tolerated well with a satisfactory response. Skin lesion of back 02/26/2017 04/14/20 Assessment & Plan (02/26/2017 8:51 AM CDT): Referral arranged to local hide mill man, Dr. Lucía Trujillo for 2nd opinion per [...] you have a drink containing alcohol? Never 12/26/2024 Q2: How many drinks containi ng alcohol do you have on a typical day when you are drinking? Patient does not drink Q3: How often do you have si x or more drinks on one occasion? Never 12/26/2024 PHQ-2 Answer Date Recorded PHQ-2 Total Score (If total score is 3 or more points, staff should administer the PHQ-9) 0 12/26/2024 Sex and Gender Information Value Date Recorded Sex Assigned at Not on file Legal Sex Male 6:05 PM FACIALIST Gender Identity Not on file Sexual Orientation Not on file Last Filed Vital Signs Vital Sign Reading Time Taken Comments Blood Pressure 142/76 12/26/2024 1:52 PM CDT Pulse 73 12/26/2024 1:52 PM CDT Temperature 37.7 C (99.8 F) 12/26/2024 1:52 PM CDT Respiratory Rate 18 12/26/2024 1:52 PM CDT Oxygen Saturation 98% 12/26/2024 1:52 PM CDT Inhaled Oxygen Concentration - - Weight 112.5 kg (248 lb) 12/26/2024 1:52 PM CDT Height 177.8 cm (5' 10 ) 12/26/2024 1:52 PM CDT Body Mass Index 35.58 12/26/2024 1:52 PM CDT Plan of Treatment Not on file Medical Devices Implanted Type Area Agricultural Education Professor Device Identifier Shelf Expiration Date Model / Serial / Lot [employer] [id number] Smartset High Viscosity Cement 40gm Bone Gentamicin - [id number] Implanted:Qty: 1 on 06/12/2018 by Wilner Valenzuela MD at [facility] Right: Knee [employer] 06/16/2019 [id number] / / [id number] [employer] [id number] Smartset High Viscosity Cement 40gm Bone Gentamicin - [id number] Implanted:Qty: 1 on 06/12/2018 by Wilner Valenzuela MD at [facility] Right: Knee [employer] 06/16/2019 [id number] / / [id number] [employer] [id number] Attune Cemented Posterior Stabilize Knee Right 6 Component - [id number] Implanted:Qty: 1 on 06/12/2018 by Wilner Valenzuela MD at [facility] Right: Knee [employer] 12/15/2027 [id number] / / [id number] [employer] [id number] Attune S+ Cement Fix Bearing Knee 7 Baseplate Tibial - [id number] Implanted:Qty: 1 on 06/12/2018 by Wilner Valenzuela MD at [facility] Right: Knee [employer] 10/17/2027 [id number] / / [id number] [employer] [id number] Attune 5mm Posterior Stabilize Fix Bearing Knee 6 Insert Tibial - [id number] Implanted:Qty: 1 on 06/12/2018 by Wilner Valenzuela MD at [facility] Right: Knee [employer] 01/14/2023 [id number] / / [id number] Procedures Procedure Name Priority Date/Time Associated Diagnosis Comments SCAN - LABS 12/05/2024 SCAN - LABS 12/04/2024 EGFR Routine 10/28/2024 9:11 AM FACIALIST CKD stage G3a/A1, GFR 45-59 and albumin creatinine ratio <30 mg/g (HCC) Essential hypertension LIPID PANEL Routine 10/28/2024 9:11 AM FACIALIST Essential hypertension COMPREHENSIVE METABOLIC PANEL Routine 10/28/2024 9:11 AM FACIALIST CKD stage G3a/A1, GFR 45-59 and albumin creatinine ratio <30 mg/g (HCC) Essential hypertension PSA SCREEN Routine 04/28/2024 8:20 AM CDT Urine frequency COLONOSCOPY Routine 05/25/2023 CT ABDOMEN PELVIS WO CONTRAST Schedule FAUSTINO, Read FAUSTINO (Appt Today, Awaiting Results) 05/05/2021 2:53 PM CDT Abdominal pain Diarrhea, unspecified type Hx of ulcerative colitis HEPATITIS C ANTIBODY Routine 12/21/2016 from Last 3 Months or Most Recently Relevant to Health Maintenance Results * SCAN - LABS (12/05/2024) us Wilner Bolaños MD Final R esult * SCAN - LABS (12/04/2024) us Wilner Bolaños MD Edited Result - Final * (ABNORMAL) eGFR (10/28/2024 9:11 AM FACIALIST) eGFR 50(L) >=60 mL/min/1. 73 m2 Comment: [...] last reviewed 2021. Blood 10/28/2024 9:11 AM FACIALIST 10/28/2024 3:53 PM FACIALIST Wilner Bolaños MD LAB BLOOD ORDERABLES Fi nal Result [facility] [address] [place] [address] * (ABNORMAL) Lipid panel (10/28/2024 9:11 AM FACIALIST) Cholesterol 156 30 - 199 mg/dL Comment: [...] 4 CERNER CH Blood 10/28/2024 9:11 AM FACIALIST 10/28/2024 3:28 PM FACIALIST Narrative CERNER - 10/28/2024 4:33 PM FACIALIST Has the patient been fasting for 8 hours or more?->Yes us Wilner Bolaños MD LAB BLOOD ORDERABLES Fi [facility]al [facility] [address] [place] [address] * (ABNORMAL) Comprehensive metabolic panel (10/28/2024 9:11 AM FACIALIST) Sodium 138 135 - 145 mmol/L Potassium, [...] Units/L CERNER CH Blood 10/28/2024 9:11 AM FACIALIST 10/28/2024 3:28 PM FACIALIST Narrative CERNER CH - 10/28/2024 4:33 PM FACIALIST Has the patient fasted?->Yes Wilner Bolaños MD LAB BLOOD ORDERABLES nal Result [facility] [address] [address] [place] [address] * PSA screen (04/28/2024 8:20 AM CDT) [...] BLOOD ORDERABLES Fi nal Result [facility] [address] [address] [place] [address] * Colonoscopy (05/25/2023) Anatomical Region Laterality Modality [...] signed by Eros ELIAS: CURT Report ID: [id number] Reading Location: [place] [address] Procedure Note Eros Bautista MD - 05/05/2021 [...] Eros Bautista M.D. NC: CURT Report ID: [id number] Reading Location: [id number] us Margarita Rodriguez JOB HONER IMG CT PROCEDURES Final Re sult * Hepatitis C antibody (12/21/2016) SCRIBED HCV ab negative [facility] Blood specimen (specimen) Narrative [facility] - 12/21/2016 Result already scanned in media Historical Provider LAB MICROBIOLOGY - GENERA L ORDERABLES Final Result [facility] from Last 3 Months or Most Recently Relevant to Health Maintenance Insurance [facility] MEDICARE [facility] CHOICE PPO MEDICARE [facility] PLUS [facility]IC[facility] ADVANTAGE Advance Directives For more information, please contact: [phone] * Full Code (Latest Code Status on File) Date Activated Date Inactivated Comments 04/22/2019 11:44 AM 04/22/2019 4:27 PM * Full Code Date Activated Date Inactivated Comments 02/28/2019 4:55 PM 03/04/2019 2:51 PM * Full Code Date Activated Date Inactivated Comments 06/12/2018 1:47 PM 06/13/2018 7:20 PM Care Teams Business Travel Consultant Relationship Specialty Start Date End Date Wilner Bolaños MD PCP - General 12/15/16 Sangeetha Parra, [facility] Youth Director Physical Therapy 06/03/18 Felicia Sales, [place]FF[place] Nurse Practitioner Nurse Practitioner 03/03/19
--- OUTSIDE RECORDS SUMMARY | 2025-01-14 00:18 | XMS_ITS | Clinical Summary ---
Author Organization [facility] Address [address] [place] [address] Care Team Providers Care Envelope Press Operator Name Role Phone Wilner Bolaños MD Primary Care Provider David Gill MD Unavailable [phone] Source Comments [facility],non-owned Affiliates and Associated Physician Practices is amultiple site organization consisting of ambulatory clinics and hospital sitesin [place], [place], [place] and [place]. This disclosure is being madepursuant to the Care Everywhere program and may not contain all information available regarding this patient. Last updated 18.[facility] Allergies Active Allergy Reactions Criticality Noted Date Comments Contrast-Iodinated Agents For Ct/Other Urticaria High 05/14/2020 Severe hives that took weeks to go away Prednisone Psychiatric Medium 08/21/2017 Terazosin Palpitations Low 11/23/2017 Tachycardia Medications * Be aware that medications may not be up to date on this document. Alwaysverify current medications with the patient. losartan-hydroC HLOROthiazide (HYZAAR) 100-12.5 MG tablet once daily 03/06/2020 Active folic acid (FOLVITE) 1 MG tablet 02/26/2020 Active prednisoLONE acetate (PRED FORTE) 1 % ophthalmic suspension 11/21/2019 Active vitamin b-12 (CYANCOBALAMIN) 1000 MCG tablet cr [...] Take by mouth once daily Active Multiple Vitamins-Minera ls (ICAPS AREDS 2 PO) Take by mouth [...] extraction of BL eyes as directed by bowl sander and desired by Pt. Preoperative clearance provided [...] follow-up and medications as previously directed by orientation and mobility specialist. Social History Tobacco Use Types Packs/Day Years Used Date Smoking Tobacco: Former Cigarettes Q uit: 12/17/1999 Smokeless Tobacco: Never Alcohol Use Standard Drinks/Week Comments Not Currently 0 (1 standard drink = 0.6 oz pur e alcohol) Sex and Gender Information Value Date Recorded Sex Assigned at Not on file Legal Sex Male 5:37 PM LEAD DATA ARCHITECT Gender Identity Not on file Sexual Orientation [...] 1969 ZOSTER VACCINE (1 of 2) 1969 COVID-19 VACCINE (3 - Pfizer risk series) 12/28/2020 11/30/2020, 11/09/2020 DEPRESSION SCREENING 09/17/2024 Respiratory Syncytial Virus (RSV) Vaccine Pt: or over 60 yrs (1 - 1-dose 75+ series) 2024 INFLUENZA VACCINE (Season Ended) 2025 06/18/2019, 05/18/2019, 06/06/2018, Additional history exists HEPATITIS B VACCINE Aged Out No longe [...] on patient's age to complete this topic Insurance [employer]ARE E[employer] MED[employer]ARE [employer] Advance Directives Documents on File Type Date Recorded Patient Shift Stacker Expl anation Adv Directive/Living Will/POA 05/19/2020 6:52 PM Care Teams Envelope Press Operator Relationship Specialty Start Date End Date Wilner Bolaños MD [address] [facility] [address] [place] [address] PCP - General Internal Medicine 03/26/20 [place] [address] [place] [address] Orthopedic Surgery 03/26/20
--- OUTSIDE RECORDS SUMMARY | 2025-01-14 00:18 | XMS_ITS | Clinical Summary ---
Author Organization [facility] Address [address] [place] [address] Care Team Providers Care Forming Machine Tender Name Role Phone Wilner Bolaños MD Primary Care Provider Sangeetha Parra SOFT WORK CIGAR MACHINE OPERATOR Unavailable Unavailable Felicia Sales FACING BASTER Unavailable [phone] Allergies Active Allergy Reactions Criticality Noted Date [...] Units total) by mouth daily Active vitamins A,C,E-zinc-photocopying machine operator per 7,160-113-100 cvdu-xj-ebzc tablet,delayed release (DR/EC) Take by mouth daily [...] face daily as directed. 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 Cont with metoprolol and eliquis for anticoagulation pending upcoming visit with dredge engineer. Painful total knee replacement, right 02/27/2019 Benign prostatic hyperplasia with urinary retent ion 11/23/2017 Assessment & Plan (10/23/2019 8:49 AM SUPERVISOR LITHARGE): Asymptomatic with last PSA of 2.99. Will Cnt. To monitor with upcoming PSA labs in 3 months as scheduled Assessment & Plan (11/23/2017 11:59 AM SUPERVISOR LITHARGE): Urology consultation recommended. Patient had been referred [...] 02/26/2017 Assessment & Plan (11/07/2019 12:55 PM SUPERVISOR LITHARGE): Will change hydralazine and clonidine to Losartan. Pt to call me with blood pressure results in 1 week. May consider adding Amlodipine if blood pressure is not well controlled Assessment & Plan (10/23/2019 8:48 AM SUPERVISOR LITHARGE): Normotensive in clinic. Cnt. Prior prescribed antihypertensives, dash/heart healthy diet and F/U dredge engineer scheduled Assessment & Plan (08/18/2019 4:15 PM SUPERVISOR LITHARGE): BP slightly elevated in office today. Cont. [...] monitor. Assessment & Plan (11/23/2017 12:03 PM SUPERVISOR LITHARGE): Blood pressure elevated today. Patient did have [...] Severe obstructive sleep apnea 01/31/2014 Overview (12/20/2016): [facility] SLEEP APNEA Assessment & Plan (11/07/2019 12:56 PM SUPERVISOR LITHARGE): Pt is compliant with CPAP Assessment & Plan (10/23/2019 8:47 AM SUPERVISOR LITHARGE): Stable on current CPAP settings Assessment & [...] REFLUX Assessment & Plan (10/23/2019 8:47 AM SUPERVISOR LITHARGE): Cnt. Pepcid and dietary modifications as prior advised. Ulcerative colitis 01/31/2014 Overview (12/21/2016): ULCERATVE COLITIS UNSPCF Assessment & Plan (03/01/2019 12:03 AM CDT): Continue sulfasalazine Assessment & Plan (08/21/2017 2:56 PM SUPERVISOR LITHARGE): Daily blood with 4 bms/day and much [...] Nasal saline spray (Simply saline, [employer], [place], [place]) 2 second sprays or 2 squeezes into [...] 12/17/2020 Assessment & Plan (10/23/2019 8:46 AM SUPERVISOR LITHARGE): Pt was advised to continue current therapy [...] 12/17/2020 Assessment & Plan (10/23/2019 8:49 AM SUPERVISOR LITHARGE): Pt wishes to proceed forward with cataract extraction of BL eyes as directed by relief pilot and desired by Pt. Preoperative clearance provided [...] (05/28/2018): Added automatically from request for surgery [id number] Urinary retention 11/23/2017 03/14/2018 Assessment & Plan (11/23/2017 12:07 PM SUPERVISOR LITHARGE): Postvoid bladder scan revealing 129 mL of [...] 01/17/2018 Assessment & Plan (11/23/2017 11:59 AM SUPERVISOR LITHARGE): Urology consultation recommended. Patient had been referred [...] 12/17/2020 Assessment & Plan (11/23/2017 12:04 PM SUPERVISOR LITHARGE): Patient is followed by Psychiatry. He will continue routine follow-up and medications as previously directed by member service specialist. Acute prostatitis 11/23/2017 01/17/2018 Assessment & Plan (11/23/2017 11:58 AM SUPERVISOR LITHARGE): Urine sample will be submitted for urinalysis with reflex to microscopy and culture. Patient has previously had a poor response to Bactrim for prostatitis. Therefore, we are going to begin treatment with Cipro which she has previously tolerated well with a satisfactory response. Skin lesion of back 02/26/2017 04/14/20 20 Assessment & Plan (02/26/2017 8:51 AM CDT): Referral arranged to local international tax manager, Dr. Lucía Trujillo for 2nd opinion per patient request. Nasal obstruction 07/02/2015 04/14/2020 Overview (12/21/2016): Refractory obstruction of nasal airway Biliary sludge 12/22/2013 12/17/2020 Overview (12/21/2016): Gallbladder sludge Encounters Date Type Department Care Team Description 12/26/2024 2:30 PM CDT Procedure visit [facility] Primary Care at [address] [place] [address] Wilner Bolaños MD Arthritis of left knee (Primary Dx); CKD stage G3a/A1, GFR 45-59 and albumin creatinine ratio <30 mg/g (HCC); Essential hypertension 12/05/2024 Orders Only [facility] [address] [place] [address] Wilner Bolaños MD 12/05/2024 Results Follow-Up [facility] Primary Care at [address] [address] Wilner Bolaños MD 12/04/2024 Orders Only [facility] [place] [facility] Information Management [address] [place] [address] Wilner Bolaños MD 12/03/2024 Telephone [facility] Primary Care at [address] [address] Wilner Bolaños MD Referral Request 11/13/2024 10:30 AM SUPERVISOR LITHARGE Office Visit [facility] Primary Care at [address] [address] Wilner Bolaños MD Essential hypertension (Primary Dx); BMI 36.0-36.9,adult; Benign prostatic hyperplasia with urinary retention; CKD stage G3a/A1, GFR 45-59 and albumin creatinine ratio <30 mg/g (HCC); Gastroesophageal reflux disease without esophagitis; H/O unilateral nephrectomy; Arthritis of left knee; Severe obstructive sleep apnea; Ulcerative pancolitis without complication (HCC); Paroxysmal atrial fibrillation (HCC); Severe obesity (HCC); Urine frequency; Mixed hyperlipidemia 11/10/2024 Orders Only [facility] Primary Care at [address] [address] Wilner Bolaños MD Skin lesion (Primary Dx) 10/28/2024 9:15 AM SUPERVISOR LITHARGE Lab [facility] Outpatient Lab at [address] [address] Essential hypertension (Primary Dx) 10/28/2024 9:11 AM SUPERVISOR LITHARGE - 10/28/2024 11:59 PM SUPERVISOR LITHARGE Hospital Encounter [address] [place] [address] CKD stage G3a/A1, GFR 45-59 and albumin creatinine ratio <30 mg/g ([facility]); Essential hypertension Discharge Disposition: Discharge to home or self care 10/21/2024 Telephone [facility] Primary Care at [address] [place] [address] Wilner Bolaños MD Referral Request from Last 3 Months Immunizations Immunization Administration [...] on file Legal Sex Male 6:05 PM SUPERVISOR LITHARGE Gender Identity Not on file Sexual Orientation [...] 12/26/2024 1:52 PM CDT Plan of Treatment Health Maintenance Due Date Last Done Comments Hepatitis B Screening 12/17/1968 DTaP/Tdap/Td Vaccine (2 - Td or Tdap) 11/19/2018 11/19/2008 Covid-19 Vaccine (5 - 2024- 5 season) 2024 01/14/2022, 05/18/2021, 11/30/2020, Additional history exists Prostate Cancer Screening-PSA 04/28/2025, 04/18/2023, 04/03/2023, Additional history exists Well Visit 65+ 05/07/2025 05/07/2024, 04/17, 04/25/2022, Additional history exists Influenza Vaccine (Season Ended) 2025 06/26/2023, 06/08/2022, 06/10/2021, Additional history exists Depression Screening 12/26/2025 12/26/2024, 11/13/2024, 05/07/2024, Additional history exists Fall Risk Assessment 12/26/2025 12/26/2024, 11/13/2024, 05/07/2024, Additional history exists Colon Cancer Screening-Colonoscopy 05/25/2033 [...] history exists Medical Devices Implanted Type Area Design Maintenance Engineer Device Identifier Shelf Expiration Date Model / Serial / Lot [employer] [id number] Smartset High Viscosity Cement 40gm Bone Gentamicin - [id number] Implanted:Qty: 1 on 06/12/2018 by Wilner Valenzuela MD at [facility] Right: Knee [employer] 06/16/2019 [id number] / / [id number] [employer] [id number] Smartset High Viscosity Cement 40gm Bone Gentamicin - [id number] Implanted:Qty: 1 on 06/12/2018 by Wilner aVlenzuela MD at [facility] Right: Knee [employer] 06/16/2019 [id number] / / [id number] [employer] [id number] Attune Cemented Posterior Stabilize Knee Right 6 Component - [id number] Implanted:Qty: 1 on 06/12/2018 by Wilner Valenzuela MD at [facility] Right: Knee [employer] 12/15/2027 [id number] / / [id number] [employer] [id number] Attune S+ Cement Fix Bearing Knee 7 Baseplate Tibial - [id number] Implanted:Qty: 1 on 06/12/2018 by Wilner Valenzuela MD at [facility] Right: Knee [employer] 10/17/2027 [id number] / / [id number] [employer] [id number] Attune 5mm Posterior Stabilize Fix Bearing Knee 6 Insert Tibial - [id number] Implanted:Qty: 1 on 06/12/2018 by Wilner Valenzuela MD at [facility] Right: Knee [employer] 01/14/2023 [id number] / / [id number] Procedures Procedure Name Priority Date/Time Associated Diagnosis Comments SCAN - LABS 12/05/2024 SCAN - LABS 12/04/2024 EGFR Routine 10/28/2024 9:11 AM SUPERVISOR LITHARGE CKD stage G3a/A1, GFR 45-59 and albumin creatinine ratio <30 mg/g (HCC) Essential hypertension LIPID PANEL Routine 10/28/2024 9:11 AM SUPERVISOR LITHARGE Essential hypertension COMPREHENSIVE METABOLIC PANEL Routine 10/28/2024 9:11 AM SUPERVISOR LITHARGE CKD stage G3a/A1, GFR 45-59 and albumin [...] Final * (ABNORMAL) eGFR (10/28/2024 9:11 AM SUPERVISOR LITHARGE) eGFR 50(L) >=60 mL/min/1. 73 m2 Comment: [...] last reviewed 2021. Blood 10/28/2024 9:11 AM SUPERVISOR LITHARGE 10/28/2024 3:53 PM SUPERVISOR LITHARGE us Wilner Bolaños MD LAB BLOOD ORDERABLES Fi nal Result CHARLY [address] [facility] [place] [address] * (ABNORMAL) Lipid panel (10/28/2024 9:11 AM SUPERVISOR LITHARGE) Cholesterol 156 30 - 199 mg/dL Comment: [...] 4 CHARLY MACIAS Blood 10/28/2024 9:11 AM SUPERVISOR LITHARGE 10/28/2024 3:28 PM SUPERVISOR LITHARGE Narrative CHARLY - 10/28/2024 4:33 PM SUPERVISOR LITHARGE Has the patient been fasting for 8 hours or more?->Yes us Wilner Bolaños MD LAB BLOOD ORDERABLES Fi nal Result CHARLY MACIAS [address] [place] [address] * (ABNORMAL) Comprehensive metabolic panel (10/28/2024 9:11 AM SUPERVISOR LITHARGE) Sodium 138 135 - 145 mmol/L Potassium, [...] Units/L CERNER CH Blood 10/28/2024 9:11 AM SUPERVISOR LITHARGE 10/28/2024 3:28 PM SUPERVISOR LITHARGE Narrative CERNER CH - 10/28/2024 4:33 PM SUPERVISOR LITHARGE Has the patient fasted?->Yes us Wilner Bolaños MD LAB BLOOD ORDERABLES Fi nal Result CERNER [address] [place] [address] * PSA screen (04/28/2024 8:20 [...] LAB BLOOD ORDERABLES Fi nal Result CHARLY [address] Department [place] [address] * Colonoscopy (05/25/2023) Anatomical Region Laterality Modality [...] Eros Bautista M.D. [place]: CURT Report ID: [id number] Reading Location: [id number] Procedure Note Eros Bautista MD - 05/05/2021 [...] Eros Bautista M.D. [place]: [place]T Report ID: [id number] Reading Location: [id number] Margarita Rodriguez FACING BASTER IMG CT PROCEDURES Final Re sult * Hepatitis C antibody (12/21/2016) SCRIBED HCV ab negative [facility] Blood specimen (specimen) Narrative [facility] - 12/21/2016 Result already scanned in media Historical Provider LAB MICROBIOLOGY - GENERA L ORDERABLES Final Result [facility] from Last 3 Months or Most Recently Relevant to Health Maintenance Insurance [facility] MEDICARE [facility] BMe Community [facility] MEDICARE [facility] CHOICE PLUS [facility] MEDICARE ADVANTAGE Advance Directives For more information, please contact: [phone] * Full Code (Latest Code Status on File) Date Activated Date Inactivated Comments 04/22/2019 11:44 AM 04/22/2019 4:27 PM * Full Code Date Activated Date Inactivated Comments 02/28/2019 4:55 PM 03/04/2019 2:51 PM * Full Code Date Activated Date Inactivated Comments 06/12/2018 1:47 PM 06/13/2018 7:20 PM Care Teams Forming Machine Tender Relationship Specialty Start Date End Date Wilner Bolaños MD PCP - General 12/15/16 Sangeetha Parra, SOFT WORK CIGAR MACHINE OPERATOR Foreman Or Supervisor And Operator Physical Therapy 06/03/18 Feilcia Sales NP Nurse Practitioner Nurse Practitioner 03/03/19
--- OUTSIDE RECORDS SUMMARY | 2025-01-14 00:18 | XMS_ITS | Encounter Summary ---
Author Organization [facility] Address [address] [place] [address] Care Team Providers Care Neurology Physician Name Role Phone David Steel MD Primary Care Provider [phone] Encounter Details Date Type Department Care Team (Late st Contact Info) Description 01/24/1999 Outpatient Historical [facility] Primary Care - [address] [place] [address] David Steel MD [address] [facility] [address] [place] [address] Social History Tobacco Use Types Packs/Day Years Used Date Smoking Tobacco: Never Assessed Sex and Gender Information Value Date Recorded Sex Assigned at Not on file Legal Sex Male 3:47 AM INVESTIGATIONS MANAGER Gender Identity Not on file Sexual Orientation Not on file documented as of this encounter Plan of Treatment Not on file documented as of this encounter Visit Diagnoses Not on filedocumented in this encounter Care Teams Neurology Physician Relationship Specialty Start Date End Date David Steel MD [address] [facility] [address] [place] [address] PCP - General 11/19/00 documented as of this encounter
--- OUTSIDE RECORDS SUMMARY | 2025-01-14 00:18 | XMS_ITS | Encounter Summary ---
Author Organization [facility] Address [address] [place] [address] Care Team Providers Care Doll Wig Maker Rooted Hair Name Role Phone David Steel MD Primary Care Provider [phone] Encounter Details Date Type Department Care Team (Late st Contact Info) Description 11/13/2000 Outpatient Historical [facility] Primary Care - [address] [place] [address] David Steel MD [address] [address] Social History Tobacco Use Types Packs/Day Years Used Date Smoking Tobacco: Never Assessed Sex and Gender Information Value Date Recorded Sex Assigned at Not on file Legal Sex Male 3:47 AM RN LACTATION CONSULTANT Gender Identity Not on file Sexual Orientation Not on file documented as of this encounter Plan of Treatment Not on file documented as of this encounter Visit Diagnoses Not on filedocumented in this encounter Care Teams Doll Wig Maker Rooted Hair Relationship Specialty Start Date End Date David Steel MD [address] [facility] [address] [place] [address] PCP - General 11/19/00 documented as of this encounter
--- OUTSIDE RECORDS SUMMARY | 2025-01-14 00:18 | XMS_ITS | Encounter Summary ---
Author Organization [facility] Address [address] [place] [address] Phone Care Team Providers Care Rotary Dryer Operator Name Role Phone Wilner Bolaños MD Primary Care Provider Sangeetha Parra PTA Unavailable Unavailable Felicia Sales HOT STONE SETTER Unavailable [phone] Stacey Christie RN Unavailable [phone] Reba Rosas RN Unavailable [phone] Encounter Details Date Type Department Care Team (Late st Contact Info) Description 11/23/2017 Orders Only [facility] ProviderJian MD [address] [place] [address] Social History Tobacco Use Types Packs/Day Years Used Date Smoking Tobacco: Former Smokeless Tobacco: Never Alcohol Use Standard Drinks/Week Comments No 0 (1 standard drink = 0.6 oz pur e alcohol) Sex and Gender Information Value Date Recorded Sex Assigned at Not on file Legal Sex Male 6:05 PM GARNETT FIXER Gender Identity Not on file Sexual Orientation Not on file documented as of this encounter Plan of Treatment Not on file documented as of this encounter Procedures Procedure Name Priority Date/Time Associated Diagnosis Comments DISCHARGE LABORATORY CUMULATIVE REPORT 11/23/2017 12:00 AM GARNETT FIXER documented in this encounter Results * DISCHARGE LABORATORY CUMULATIVE REPORT (11/23/2017 12:00 AM GARNETT FIXER) Narrative 11/23/2017 12:00 AM GARNETT FIXER Ordered by an unspecified provider. us Historical Provider LAB BLOOD ORDERABLES Radha l Result documented in this encounter Visit Diagnoses Not on filedocumented in this encounter Care Teams Rotary Dryer Operator Relationship Specialty Start Date End Date Wilner Bolaños MD PCP - General 12/15/16 Sangeetha Parra, SPANISH SPEAKING BABYSITTER Client Support Professional Physical Therapy 06/03/18 Felicia Sales, TIFFANY Nurse Practitioner Nurse Practitioner 03/03/19 Stacey Christie, SACHIN [address] [place] [address] Leather Seasoner 03/05/19 04/15/19 Reba Rosas RN [address] [address] Leather Seasoner 02/26/20 04/19/20 documented as of this encounter
--- OUTSIDE RECORDS SUMMARY | 2025-01-14 00:18 | XMS_ITS | Encounter Summary ---
Author Organization [facility] Address [address] [place] [address] Care Team Providers Care Installer Inspector Final Name Role Phone Wilner Bolaños MD Primary Care Provider David Gill MD Unavailable [phone] Encounter Details Date Type Department Care Team (Late st Contact Info) Description 10/04/2023 Lab Requisition [facility] Lab [address] [facility], [place] [address] Agnes Neri MD [address] [facility] [address] [place] [address] Social History Tobacco Use Types Packs/Day Years Used Date Smoking Tobacco: Former Cigarettes Q uit: 12/17/1999 Smokeless Tobacco: Never Alcohol Use Standard Drinks/Week Comments Not Currently 0 (1 standard drink = 0.6 oz pur e alcohol) Sex and Gender Information Value Date Recorded Sex Assigned at Not on file Legal Sex Male 5:37 PM WEATHER FORECASTER Gender Identity Not on file Sexual Orientation Not on file documented as of this encounter Plan of Treatment Not on file documented as of this encounter Procedures Procedure Name Priority Date/Time Associated Diagnosis Comments DERMATOPATHOLOGY Routine 10/04/2023 11:2 1 AM WEATHER FORECASTER documented in this encounter Results * DERMATOPATHOLOGY (10/04/2023 11:21 AM WEATHER FORECASTER) Case Report Dermatopathology Report Case: [id number] Authorizing Provider: Agnes Neri MD Collected: 10/04/2023 11:21 AM Ordering Location: [facility] DermPath Lab Received: 10/05/2023 08:58 AM Pathologist: Elke Quinn MD Specimen: Skin, crown 4:32 PM [facility] DERMATOPATHOLOGY LABORATORY Final Diagnosis Specimen A. SKIN, crown: HYPERPLASTIC (HYPERTROPHIC) ACTINIC KERATOSIS, ERODED (L57.0) (see microscopic description) 4:32 PM [facility] DERMATOPATHOLOGY LABORATORY Clinical History R/o NMSC Favor PN. Eroded Papule 4:32 PM [facility] DERMATOPATHOLOGY LABORATORY Gross Description Specimen A: Received is one formalin filled container labeled with the patient's name and designated crown. The specimen consists of a shave biopsy measuring 9x6x1 mm. Jar 0. 4:32 PM [facility] DERMATOPATHOLOGY LABORATORY Microscopic Description Specimen A. SKIN, crown: There is hyperkeratosis alternating with parakeratosis. The epidermis is eroded. There is epidermal hyperplasia with disorderly maturation of keratinocytes with nuclear pleomorphism confined to the lower half of the epidermis. Additional deeper sections were obtained and reviewed. 4:32 PM [facility] DERMATOPATHOLOGY LABORATORY Disclaimer An external and internal positive and negative controls are appropriate for the histochemical, immunohistochemical and immunofluorescence stain(s) in this case (if any), except where stated explicitly. The performance characteristics of the stain(s) cited in this report were developed and its performance characteristic determined by the Dermatopathology Laboratory at [facility], directed by Dr. Shasta Loya. These tests need not be, and therefore are not, approved by the [place] Food and Drug Administration. The tests are used for clinical purposes. Billing Codes Specimen Charges Stain Charges 44585 1 4:32 PM [facility] DERMATOPATHOLOGY LABORATORY Embedded Images 4:32 PM [facility] DERMATOPATHOLOGY LABORATORY Pathology/Cytolo gy TISSUE SPECIMEN FROM SKIN / Unknown 10/04/2023 11:21 AM WEATHER FORECASTER 10/05/2023 8:58 AM WEATHER FORECASTER us Agnes Neri MD LAB - PATHOLOGY/CYTOLOGY ORD ERABLES Final Result DERMATOPATHOLOGY LABORATORY [facility] - Department of Dermatology [address], [address] [phone] documented in this encounter Visit Diagnoses Not on filedocumented in this encounter Care Teams Installer Inspector Final Relationship Specialty Start Date End Date Wilner Bolaños MD [address] [facility] [address] [place] [phone] PCP - General Internal Medicine 03/26/20 [place] [id number] [address] Orthopedic Surgery 03/26/20 documented as of this encounter
--- OUTSIDE RECORDS SUMMARY | 2025-01-14 00:18 | XMS_ITS | Continuity of Care Document ---
Author Organization [facility] Address [address] [place] [address] Phone Care Team Providers Care Respiratory Care Program Director Name Role Phone Srini San Unavailable Unavailable Procedures Procedure Date Special Reports Or Forms Eye Exam & Treatment Refraction Eye Exam & Treatment Refraction Office/outpatient Visit, Est Advance Directives Directive Yes / No Effective Date File Name No Information Encounters Encounter Description Practice Location Reason(s) For Visit Diagnoses Date Provider Providers Copied on Encounter [facility], [address] [place] [address] [address], [place], [place], [id number], tel:[phone] [facility] No Information 0 Mena Milligan. [address], [place], [place], [facility], . tel:[phone] [facility], [address] [place] [address] [address], [place], [place], [id number], [place] tel:[phone] [facility] No Information [address] Mena Milligan. [address], [place], [place], [facility], . tel:[phone] [facility], [address], [place], [place], [id number], tel:[phone] [facility] No Information [address] Mena Milligan. [address], [place], [address], [place]. tel:[phone] Referring Provider: Srini Floyd, [address], [place], [address]. tel:[phone] Office/outpat ient Visit, [facility], [address], [place], [place], [id number], [place] tel:[phone] [facility] No Information Jacobo-2 [phone] Mena Milligan. [address] , [address], [place], [address], [place]. tel:[phone] Family History Family Member Type Diagnosis Age At Onset No Information Payers Payer name Insurance type Covered libertarian ID Authoriza tion(s) No Information Social History [...]
[2025-01-14 07:41] VITALS: BP 146/73; PULSE 64; RESP 18; TEMP 36.1; O2SAT 100
[2025-01-14] MEDS: LACTATED RINGERS 1,000 ML 150 ML IV CONT (07:49)
--- NOTE | 2025-01-14 08:07 | WPDANESEPPF ---
Anes - Initial Pre Proc Eval Procedure: Operation Date: 01/14/25 08:30 Proposed Procedures p Screening Colonoscopy - Stevenson Griffith MD Date/Time: 01/14/25 08:07 Surgeon: Stevenson Griffith MD Pre Op Diagnosis: personal hx colon polyps Patient Data Age: 74 Gender: M Height: 1.78 m Weight: 108.4 kg Last Vital Signs Temp 97 F L 01/14/25 07:41 Pulse 64 01/14/25 07:41 Resp 18 01/14/25 07:41 BP 146/73 H 01/14/25 07:41 Pulse Ox 100 01/14/25 07:41 O2 Del Method Room Air 01/14/25 07:41 Allergies Allergy/AdvReac Type Severity Reaction Status Date / Time Iodinated Contrast Media Allergy Severe Hives Verified 01/14/25 07:39 terazosin Allergy Severe Other Verified 01/14/25 07:39 prednisone AdvReac Severe Diarrhea Verified 01/14/25 07:39 Home Medications ?Medication ?Instructions ?Recorded ?Confirmed ?Type PreserVision AREDS-2 1 tab-cap PO DAILY 05/05/21 01/14/25 History losartan 100 1 tablet PO DAILY 05/05/21 01/14/25 History mg-hydrochlorothiazide 12.5 mg tablet rivaroxaban 20 mg tablet (Xarelto) 20 mg PO EVERY OTHER DAY 05/05/21 01/01/25 History Lactobacillus 1 cap PO DAILY 05/15/23 01/14/25 History acidophilus-Bifidobac.animalis 2.5 billion cell capsule (Daily Probiotic) mecobalamin (vitamin B12) 5,000 5,000 mcg PO 2XW 05/15/23 01/14/25 History mcg chewable tablet triamcinolone acetonide 0.1 % 1 applic topical DAILY PRN Rash 05/15/23 10/20/24 History topical cream turmeric 100 mg-avery 150 2 cap PO DAILY 05/15/23 01/14/25 History mg-olive 50 mg-oreg 150 mg-capryl capsule upadacitinib 15 mg tablet,extended 15 mg PO DAILY #30 tabs 12/03/24 01/14/25 Rx release 24 hr (Rinvoq) ferrous sulfate 325 mg (65 mg 325 mg PO EVERY OTHER DAY 01/01/25 01/14/25 History iron) tablet (Feosol) mesalamine 1.2 gram tablet,delayed 3.6 g (3 x 1.2 gram) PO DAILY 1 01/09/25 01/14/25 Rx release (Lialda) month #90 tabs Results Review: All pre-operative results and documents have been reviewed as part of the pre-operative evaluation. [facility] Past Medical History Medical History Rash Iron deficiency anemia Blood in stool Ulcerative colitis Hypertension Atrial fibrillation SOB (shortness of breath) Morbid obesity Asbestosis WILLIAM (obstructive sleep apnea) Surgical History Surgical History History of nephrectomy left - 7 Family History Family History Mother Macular degeneration Morbid obesity Sibling Cerebrovascular accident Morbid obesity Social History Social History Smoking packs per day: 1 Smoking cigarettes per day: 20.0 Years smoked: 35 Smoking pack-years: 35.00 Smoking status: Former smoker Tobacco type: cigarettes Smoking end date: 12/26/99 Alcohol intake: never Substance use: never Substance use type: does not use Living arrangements: with family Spiritual care concerns: No Anes - Eval Final PreProcedure Day of Procedure 01/14/25 08:07 Patient weight: normal Heart: regular rate and rhythm Lungs: clear to auscultation Neurological: alert and oriented Last oral intake: >/= 8 hours Emergent: no Anesthetic plan: proceed Results Review: All pre-operative results and documents have been reviewed as part of the pre-operative evaluation. Informed Consent: The patient's anesthetic plan and its attendant risks and benefits were discussed with the patient/family/POA. Questions were solicited and answers provided to the satisfaction of the patient/family/POA.
--- NOTE | 2025-01-14 08:13 | PM.HPGS ---
History of Present Illness History of Present Illness Consent: Risks, benefits, and alternatives have been discussed and questions answered. Patient agrees to proceed with procedure. Chief complaint: personal hx colon polyps Narrative: Alonzo Montana is a 74 year old male here for another colonoscopy, diagnosed with pancolitis UC ~ 2014 used to be on sulfasalazine then came to us in 2020 to establish care with symptomatic colitis with bloody diarrhea, abdominal pain, anemia and elevated inflammatory markers, colonoscopy 04/2021 showed mod-severe UC up to distal ascending colon, also had TA polyps removed, no dysplasia. Initially on remicade and imuran after his colonoscopy with significant improvement of symptoms but then decided to switch to humira because insurance and also infusion concern. He was on humira since 01/2022 and was doing quite well with last colonoscopy 05/2023 normal including unremarkable random biopsies (see below), also TA polyp removed. Unfortunately insurance stopped paying for humira 09/2024 and transitioned to rinvoq but recently developed chills and fatigue, he finally discontinued rinvoq and now only using mesalamine again. We just ordered tremfya for him but waiting on insurance approval. Review of Systems Review of Systems: All systems reviewed & are unremarkable except as noted in HPI and below PMFSH Past Medical History Medical History Rash Iron deficiency anemia Blood in stool Ulcerative colitis Hypertension Atrial fibrillation SOB (shortness of breath) Morbid obesity Asbestosis WILLIAM (obstructive sleep apnea) Surgical History Surgical History History of nephrectomy left - 1957 Family History Family History Mother Macular degeneration Morbid obesity Sibling Cerebrovascular accident Morbid obesity Social History Social History Smoking packs per day: 1 Smoking cigarettes per day: 20.0 Years smoked: 35 Smoking pack-years: 35.00 Smoking status: Former smoker Tobacco type: cigarettes Smoking end date: 12/26/99 Alcohol intake: never Substance use: never Substance use type: does not use Living arrangements: with family Spiritual care concerns: No Meds Home Medications and Allergies Home Medications ?Medication ?Instructions ?Recorded ?Confirmed ?Type PreserVision AREDS-2 1 tab-cap PO DAILY 05/05/21 01/14/25 History losartan 100 1 tablet PO DAILY 05/05/21 01/14/25 History mg-hydrochlorothiazide 12.5 mg tablet rivaroxaban 20 mg tablet (Xarelto) 20 mg PO EVERY OTHER DAY 05/05/21 01/01/25 History Lactobacillus 1 cap PO DAILY 05/15/23 01/14/25 History acidophilus-Bifidobac.animalis 2.5 billion cell capsule (Daily Probiotic) mecobalamin (vitamin B12) 5,000 5,000 mcg PO 2XW 05/15/23 01/14/25 History mcg chewable tablet triamcinolone acetonide 0.1 % 1 applic topical DAILY PRN Rash 05/15/23 10/20/24 History topical cream turmeric 100 mg-avery 150 2 cap PO DAILY 05/15/23 01/14/25 History mg-olive 50 mg-oreg 150 mg-capryl capsule upadacitinib 15 mg tablet,extended 15 mg PO DAILY #30 tabs 12/03/24 01/14/25 Rx release 24 hr (Rinvoq) ferrous sulfate 325 mg (65 mg 325 mg PO EVERY OTHER DAY 01/01/25 01/14/25 History iron) tablet (Feosol) mesalamine 1.2 gram tablet,delayed 3.6 g (3 x 1.2 gram) PO DAILY 1 01/09/25 01/14/25 Rx release (Lialda) month #90 tabs Allergies Allergy/AdvReac Type Severity Reaction Status Date / Time Iodinated Contrast Media Allergy Severe Hives Verified 01/14/25 07:39 terazosin Allergy Severe Other Verified 01/14/25 07:39 prednisone AdvReac Severe Diarrhea Verified 01/14/25 07:39 Vital Signs Vital Signs - 24 hr 01/14/25 07:41 Temperature 97 F L Pulse Rate 64 Respiratory Rate 18 Blood Pressure 146/73 H Pulse Oximetry 100 Oxygen Delivery Room Air Exam Const: General: comfortable and no acute distress HENMT: Face/Nose/Sinus: Normal nares present Eyes: General: appearance normal, both eyes and all related structures Neck: Neck: no JVD Resp: Auscultation: clear to auscultation bilaterally Cardio: Rate: regular rate Rhythm: regular rhythm GI: Inspection: non-distended GI Palp: Yes Soft to palpation Skin: General skin exam: normal color Neuro: Speech: normal speech Extrem: General: normal to inspection Psych: Mental Status: mental status grossly normal Assessment and Plan Assessment and plan (1) Ulcerative colitis: Code(s): K51.90 - Ulcerative colitis, unspecified, without complications Status: Acute Assessment and Plan: colonoscopy for dysplasia surveillance
[2025-01-14] MEDS: METHYLENE BLUE 0.5% INJ 10 ML AMPULE 20 ML IRRIGATION (08:15)
[2025-01-14 08:30] VITALS: BP 130/68; PULSE 63; RESP 20; O2SAT 96
[2025-01-14 08:40] VITALS: BP 128/70; PULSE 61; RESP 20; O2SAT 98
[2025-01-14 08:50] VITALS: BP 120/67; PULSE 63; RESP 18; O2SAT 98
== END 2025-01-14 09:00 | disposition home or self-care (01) ==
PROVIDERS: PCP Internal Medicine; Visit Provider Internal Medicine Gastroenterology
PROC: 0DJD8ZZ Inspection of Lower Intestinal Tract, Via Natural or Artificial Opening Endoscopic (ICD-10-PCS; CPT 45378; principal; 2025-01-14 08:30)
DX: K51.90 Ulcerative colitis, unspecified, without complications (principal); K57.30 Diverticulosis of large intestine without perforation or abscess without bleeding; K64.8 Other hemorrhoids; Z87.891 Personal history of nicotine dependence; Z86.0100 Personal history of colon polyps, unspecified
CPT/HCPCS: 45380; 88305; J2704; J7120; Q9968